=== PATIENT | female | born 1950 | race Caucasian/White ===

== ENCOUNTER 2017-06-16 23:51 | Emergency (ER) | payer MEDICARE, MEDICAID ==
[~2017-06-16] VITALS: Ht 157.5 cm; Wt 106.8 kg
[~2017-06-16 23:51] MED LIST: ALBU2.5V13 NEB; AMIT50TA3 PO; BACL10TA PO; BECL8.7A7 INH; BUPR-94 PO; DIVA500T9 PO; FERR325T32 PO; FLEC100T2 PO; IPRA3AMP IH; LEVO50TA8 PO; MONT10TA24 PO; MORP15TA60 PO; OSC500T PO; POTA8TAB8 PO; PRED20TA PO; RISP1TAB3 PO; ROPI2TAB4 PO; SIMV20TA PO; SUCR1TAB34 PO; VERA120T2 PO
[2017-06-17 00:47] LABS: BASOPHILS % (AUTO) 0.8 % (0-1); EOSINOPHILS # (AUTO) 0.2 X10'3 (0-0.9); EOSINOPHILS % (AUTO) 4.3 % (0-6); HEMATOCRIT 38.5 % (35.0-45.0); HEMOGLOBIN 12.8 g/dl (12.0-16.0); LYMPHOCYTES # (AUTO) 1.1 X10'3 (1.1-4.8); LYMPHOCYTES % (AUTO) 19.3 % (21-51); MEAN CORPUSCULAR HEMOGLOBIN 29.8 PG (27.0-31.0); MEAN CORPUSCULAR HGB CONC 33.1 % (33.0-36.5); MONOCYTES # (AUTO) 0.8 X10'3 (0-0.9); NEUTROPHILS # (AUTO) 3.6 X10'3 (1.8-7.7); NEUTROPHILS % (AUTO) 61.6 % (42-75); PLATELET COUNT 186 X10'3 (140-440); RED BLOOD COUNT 4.28 X10'6 (4.20-5.60); RED CELL DISTRIBUTION WIDTH 16.5 % (11.5-14.5); WHITE BLOOD COUNT 5.7 X10'3 (4.5-11.0)
[2017-06-17 00:56] LABS: PARTIAL THROMBOPLASTIN TIME 26 SECONDS (22-32); PROTHROMBIN TIME 10.6 SECONDS (9.0-12.0)
[2017-06-17 00:58] LABS: ALANINE AMINOTRANSFERASE 21 U/L (12-78); ALBUMIN 2.7 G/DL (3.4-5.0); ALBUMIN/GLOBULIN RATIO 0.7 (1.1-1.5); ALKALINE PHOSPHATASE 130 IU/L (46-116); ANION GAP 1 (8-16); ASPARTATE AMINO TRANSFERASE 36 U/L (10-37); BILIRUBIN,TOTAL 0.3 MG/DL (0.1-1.0); BLOOD UREA NITROGEN 13 MG/DL (7-18); CALCIUM 9.2 MG/DL (8.5-10.1); CHLORIDE 99 MMOL/L (99-107); GLUCOSE 150 MG/DL (70-104); MAGNESIUM 1.9 MG/DL (1.5-2.4); POTASSIUM 3.9 MMOL/L (3.5-5.1); SODIUM 144 MMOL/L (135-145); TOTAL PROTEIN 6.5 G/DL (6.4-8.2); eGFR 56 ML/MIN
[2017-06-17 01:01] LABS: TOTAL CARBON DIOXIDE 44.3 MMOL/L (24-32)
[2017-06-17 01:22] VITALS: BP 106/54
[2017-06-17] MEDS ORDERED: MAGN296S50 PO (01:29)
[2017-06-17] MEDS ORDERED: POLY17PO10 PO (01:29)
== END 2017-06-17 02:18 | disposition home or self-care (01) ==
LOC: ER 23:52
DX: K59.00 Constipation, unspecified (principal); I48.91 Unspecified atrial fibrillation; I50.9 Heart failure, unspecified; J44.9 Chronic obstructive pulmonary disease, unspecified; E11.9 Type 2 diabetes mellitus without complications; G89.29 Other chronic pain; G20 Parkinson's disease; F20.9 Schizophrenia, unspecified; F32.9 Major depressive disorder, single episode, unspecified; F41.9 Anxiety disorder, unspecified; Z86.73 Personal history of transient ischemic attack (TIA), and cerebral infarction without residual deficits; Z87.442 Personal history of urinary calculi; Z90.49 Acquired absence of other specified parts of digestive tract; Z88.5 Allergy status to narcotic agent; Z88.1 Allergy status to other antibiotic agents
CPT/HCPCS: 36415; 70450; 74176; 80053; 83735; 85025; 85610; 85730; 99285

== ENCOUNTER 2017-06-23 12:08 | Inpatient (IN) | payer MEDICARE, MEDICAID ==
[~2017-06-23] VITALS: Ht 157.5 cm; Wt 106.0 kg
[~2017-06-23 12:08] MED LIST changes: +MAGN296S50 PO; +POLY17PO10 PO; -PRED20TA PO
[2017-06-23] MEDS ORDERED: levoFLOXACIN-Levaquin 500mg/D5 100 ML IV ONE (12:20)
[2017-06-23] MEDS ORDERED: methylPREDNISolone sod succ 125mg/2ml vial IV ONE (12:20)
[2017-06-23] MEDS ORDERED: furosemide 40mg/4ml inj IV ONE (12:20)
[2017-06-23] MEDS ORDERED: ipratropium/albuterol 3ml nebule NEB ONE (12:20)
[2017-06-23 12:54] LABS: BASOPHILS % (AUTO) 0.4 % (0-1); EOSINOPHILS # (AUTO) 0.2 X10'3 (0-0.9); EOSINOPHILS % (AUTO) 4.2 % (0-6); HEMATOCRIT 37.2 % (35.0-45.0); HEMOGLOBIN 12.1 g/dl (12.0-16.0); LYMPHOCYTES # (AUTO) 1.2 X10'3 (1.1-4.8); LYMPHOCYTES % (AUTO) 29.2 % (21-51); MEAN CORPUSCULAR HEMOGLOBIN 29.8 PG (27.0-31.0); MEAN CORPUSCULAR HGB CONC 32.7 % (33.0-36.5); MEAN CORPUSCULAR VOLUME 91.3 FL (78-98); MEAN PLATELET VOLUME 7.4 FL (7.4-10.4); MONOCYTES # (AUTO) 0.7 X10'3 (0-0.9); MONOCYTES % (AUTO) 17.3 % (2-12); NEUTROPHILS % (AUTO) 48.9 % (42-75); PLATELET COUNT 139 X10'3 (140-440); RED BLOOD COUNT 4.07 X10'6 (4.20-5.60); RED CELL DISTRIBUTION WIDTH 17.3 % (11.5-14.5); WHITE BLOOD COUNT 4.2 X10'3 (4.5-11.0)
[2017-06-23] MEDS ORDERED: furosemide 20 MG/2 ML vial IV STA (13:04)
[2017-06-23 13:19] LABS: ALANINE AMINOTRANSFERASE 23 U/L (12-78); ALBUMIN 2.5 G/DL (3.4-5.0); ALBUMIN/GLOBULIN RATIO 0.7 (1.1-1.5); ALKALINE PHOSPHATASE 237 IU/L (46-116); ANION GAP 2 (8-16); ASPARTATE AMINO TRANSFERASE 37 U/L (10-37); BILIRUBIN,TOTAL 0.3 MG/DL (0.1-1.0); BLOOD UREA NITROGEN 18 MG/DL (7-18); CALCIUM 8.9 MG/DL (8.5-10.1); CHLORIDE 103 MMOL/L (99-107); GLUCOSE 97 MG/DL (70-104); POTASSIUM 4.1 MMOL/L (3.5-5.1); SODIUM 144 MMOL/L (135-145); TOTAL CARBON DIOXIDE 38.8 MMOL/L (24-32); TOTAL PROTEIN 6.2 G/DL (6.4-8.2); eGFR 63 ML/MIN
[2017-06-23 13:40] LABS: ABG BASE EXCESS 11.5 mmol/L (-2.0-3.0); ABG HCO3 39.3 mmol/L (22.0-26.0); ABG OXYGEN SATURATION 83.5 % (95-98); ABG PCO2 (T) 66.6 mmHg (32.0-45.0); ABG PH (T) 7.387 (7.350-7.450); ABG PO2 (T) 48.2 mmHg (83-108); ALLEN'S TEST Positive; FCOHb 5.9 % (0.5-1.5); FMetHb 0.1 % (0.3-1.12); FO2Hb 78.5 % (94-100); PATIENT TEMPERATURE 36.7
[2017-06-23] MEDS ORDERED: ondansetron/PF 4mg/2ml inj IV PRN (14:25)
[2017-06-23] MEDS ORDERED: acetaminophen 325mg tablet PO PRN ×2 (14:25)
[2017-06-23] MEDS ORDERED: HYDROcodone/acetaminophen 5mg/325mg tablet PO PRN (14:25)
[2017-06-23] MEDS ORDERED: HYDROcodone/acetaminophen 10/325mg tab PO PRN (14:25)
[2017-06-23] MEDS ORDERED: mag hydrox/Alum hydrox/simeth 30ml oral suspension PO PRN (14:25)
[2017-06-23] MEDS ORDERED: morphine 2 MG/ML inj. syringe IV PRN (14:25)
[2017-06-23] MEDS ORDERED: magnesium hydroxide 30ml (MOM) UD suspension PO PRN (14:25)
[2017-06-23 16:02] LABS: HEMOGLOBIN A1C 5.6 % (4.5-6.2)
[2017-06-23] MEDS ORDERED: baclofen 10mg tablet PO PRN (16:45)
[2017-06-23] MEDS ORDERED: magnesium citrate 296ml oral solution PO SCH (16:45)
[2017-06-23] MEDS ORDERED: ipratropium/albuterol 3ml nebule IH PRN (16:45)
[2017-06-23] MEDS ORDERED: furosemide 10 MG/1 ML 10ml inj IV ONE (18:50)
[2017-06-23 19:15] VITALS: BP 139/56
[2017-06-23] MEDS ORDERED: amitryptiline 50mg tablet PO SCH (21:00)
[2017-06-23] MEDS ORDERED: temazepam 15mg capsule PO PRN (21:00)
[2017-06-23] MEDS: risperiDONE 2mg tablet PO SCH (21:51)
[2017-06-23] MEDS: ROPINIRole 1mg tablet PO SCH (21:52)
[2017-06-23] MEDS: flecainide 50mg tablet PO SCH (21:52)
[2017-06-23] MEDS: morphine ER 15mg tablet PO SCH (21:53)
[2017-06-23] MEDS: sucralfate 1 gm tablet PO SCH (21:53)
[2017-06-23] MEDS: montelukast 10mg tablet PO SCH (21:53)
[2017-06-23] MEDS: atorvastatin 10mg tablet PO SCH (21:54)
[2017-06-23] MEDS: amitryptiline 50mg tablet PO SCH (21:54)
[2017-06-23] MEDS: divalproex sod 250mg ER (24-hour) tablet PO SCH (21:55)
[2017-06-23] MEDS: calcium carbonate 500mg tablet PO SCH (22:02)
[2017-06-24] VITALS: BP 139/70
[2017-06-24 02:08] LABS: BASOPHILS % (AUTO) 0.2 % (0-1); EOSINOPHILS % (AUTO) 0 % (0-6); HEMATOCRIT 39.3 % (35.0-45.0); HEMOGLOBIN 12.7 g/dl (12.0-16.0); LYMPHOCYTES # (AUTO) 0.7 X10'3 (1.1-4.8); LYMPHOCYTES % (AUTO) 19.7 % (21-51); MEAN CORPUSCULAR HEMOGLOBIN 29.6 PG (27.0-31.0); MEAN CORPUSCULAR HGB CONC 32.4 % (33.0-36.5); MEAN CORPUSCULAR VOLUME 91.3 FL (78-98); MEAN PLATELET VOLUME 7.9 FL (7.4-10.4); MONOCYTES # (AUTO) 0.2 X10'3 (0-0.9); MONOCYTES % (AUTO) 6.3 % (2-12); NEUTROPHILS # (AUTO) 2.6 X10'3 (1.8-7.7); NEUTROPHILS % (AUTO) 73.8 % (42-75); PLATELET COUNT 151 X10'3 (140-440); RED CELL DISTRIBUTION WIDTH 16.9 % (11.5-14.5); WHITE BLOOD COUNT 3.5 X10'3 (4.5-11.0)
[2017-06-24 02:10] LABS: PARTIAL THROMBOPLASTIN TIME 25 SECONDS (22-32); PROTHROMBIN TIME 10.8 SECONDS (9.0-12.0)
[2017-06-24 02:18] LABS: ALBUMIN 2.4 G/DL (3.4-5.0); BLOOD UREA NITROGEN 20 MG/DL (7-18); BUN/CREATININE RATIO 14.3 (6.6-38.0); CALCIUM 8.9 MG/DL (8.5-10.1); GLUCOSE 138 MG/DL (70-104); MAGNESIUM 1.6 MG/DL (1.5-2.4); eGFR 38 ML/MIN
[2017-06-24 02:36] LABS: ANION GAP 3 (8-16); CHLORIDE 101 MMOL/L (99-107); POTASSIUM 4.8 MMOL/L (3.5-5.1); SODIUM 144 MMOL/L (135-145)
[2017-06-24 02:38] LABS: TOTAL CARBON DIOXIDE 40.3 MMOL/L (24-32)
[2017-06-24 08:00] VITALS: BP 106/53
[2017-06-24] MEDS ORDERED: levoFLOXACIN-Levaquin 750MG/D5 150 ML IV SCH (08:00)
[2017-06-24] MEDS: enoxaparin 40mg/0.4ml syringe SQ SCH (08:23)
[2017-06-24] MEDS: buPROPion SR 150mg tablet PO SCH (08:29)
[2017-06-24] MEDS: ROPINIRole 1mg tablet PO SCH ×3 (08:31→20:26)
[2017-06-24] MEDS: flecainide 50mg tablet PO SCH ×2 (08:31→20:26)
[2017-06-24] MEDS: verapamil SR 120mg (sust. release) tab PO SCH (08:32)
[2017-06-24] MEDS: potassium chloride 8mEq ER tablet PO SCH (08:32)
[2017-06-24] MEDS: levoTHYROXINE 25mcg tablet PO SCH (08:33)
[2017-06-24] MEDS: ferrous sulfate 325mg tablet PO SCH (08:33)
[2017-06-24] MEDS: morphine ER 15mg tablet PO SCH ×3 (08:34→20:25)
[2017-06-24] MEDS: calcium carbonate 500mg tablet PO SCH ×2 (08:34→20:24)
[2017-06-24] MEDS: sucralfate 1 gm tablet PO SCH ×3 (08:36→20:25)
[2017-06-24] MEDS: fluticasone furoate 100MCG/puff inhaler IH SCH (08:46)
[2017-06-24] MEDS: albuterol 2.5 MG/3 ML nebule NEB PRN ×2 (08:46→21:32)
[2017-06-24] MEDS: furosemide 10 MG/1 ML 10ml inj IV SCH ×2 (08:49→20:24)
[2017-06-24 11:00] VITALS: BP 120/52
[2017-06-24] MEDS: divalproex sod 250mg ER (24-hour) tablet PO SCH ×2 (13:12→20:24)
[2017-06-24] MEDS ORDERED: morphine 5 MG/ML injection IV PRN (16:56)
[2017-06-24 20:00] VITALS: BP 121/50
[2017-06-24] MEDS: atorvastatin 10mg tablet PO SCH (20:24)
[2017-06-24] MEDS: amitryptiline 50mg tablet PO SCH (20:25)
[2017-06-24] MEDS: montelukast 10mg tablet PO SCH (20:25)
[2017-06-24] MEDS: risperiDONE 2mg tablet PO SCH (20:26)
[2017-06-24] MEDS ORDERED: ipratropium/albuterol 3ml nebule NEB PRN (23:45)
[2017-06-24] MEDS ORDERED: methylPREDNISolone sod succ 125mg/2ml vial IV ONE (23:45)
[2017-06-25] VITALS: BP 130/93
[2017-06-25 06:19] LABS: BASOPHILS % (AUTO) 0 % (0-1); EOSINOPHILS % (AUTO) 0 % (0-6); HEMATOCRIT 39.3 % (35.0-45.0); HEMOGLOBIN 13.1 g/dl (12.0-16.0); LYMPHOCYTES % (AUTO) 14.5 % (21-51); MEAN CORPUSCULAR HEMOGLOBIN 29.8 PG (27.0-31.0); MEAN CORPUSCULAR HGB CONC 33.4 % (33.0-36.5); MEAN CORPUSCULAR VOLUME 89.4 FL (78-98); MEAN PLATELET VOLUME 7.8 FL (7.4-10.4); MONOCYTES # (AUTO) 0.3 X10'3 (0-0.9); MONOCYTES % (AUTO) 4.3 % (2-12); NEUTROPHILS # (AUTO) 5.4 X10'3 (1.8-7.7); NEUTROPHILS % (AUTO) 81.2 % (42-75); PLATELET COUNT 178 X10'3 (140-440); RED BLOOD COUNT 4.39 X10'6 (4.20-5.60); RED CELL DISTRIBUTION WIDTH 17.5 % (11.5-14.5); WHITE BLOOD COUNT 6.7 X10'3 (4.5-11.0)
[2017-06-25 06:21] LABS: PARTIAL THROMBOPLASTIN TIME 25 SECONDS (22-32); PROTHROMBIN TIME 10.5 SECONDS (9.0-12.0)
[2017-06-25 06:38] LABS: ALBUMIN 2.9 G/DL (3.4-5.0); ANION GAP 5 (8-16); BLOOD UREA NITROGEN 33 MG/DL (7-18); BUN/CREATININE RATIO 27.5 (6.6-38.0); CALCIUM 9.5 MG/DL (8.5-10.1); CHLORIDE 95 MMOL/L (99-107); GLUCOSE 172 MG/DL (70-104); POTASSIUM 4.9 MMOL/L (3.5-5.1); SODIUM 140 MMOL/L (135-145); TOTAL CARBON DIOXIDE 39.8 MMOL/L (24-32); eGFR 45 ML/MIN
[2017-06-25 07:12] VITALS: BP 125/52
[2017-06-25] MEDS ORDERED: methylPREDNISolone sod succ 125mg/2ml vial IV ONE (08:00)
[2017-06-25] MEDS: divalproex sod 250mg ER (24-hour) tablet PO SCH (08:00)
[2017-06-25] MEDS ORDERED: levoFLOXACIN-Levaquin 750MG/D5 150 ML IV SCH ×2 (08:00)
[2017-06-25] MEDS: fluticasone furoate 100MCG/puff inhaler IH SCH (08:06)
[2017-06-25] MEDS: potassium chloride 8mEq ER tablet PO SCH (08:18)
[2017-06-25] MEDS: morphine ER 15mg tablet PO SCH ×2 (08:18→13:09)
[2017-06-25] MEDS: calcium carbonate 500mg tablet PO SCH (08:18)
[2017-06-25] MEDS: buPROPion SR 150mg tablet PO SCH (08:18)
[2017-06-25] MEDS: ferrous sulfate 325mg tablet PO SCH (08:18)
[2017-06-25] MEDS: sucralfate 1 gm tablet PO SCH ×2 (08:18→13:09)
[2017-06-25] MEDS: verapamil SR 120mg (sust. release) tab PO SCH (08:18)
[2017-06-25] MEDS: ROPINIRole 1mg tablet PO SCH ×2 (08:18→13:08)
[2017-06-25] MEDS: flecainide 50mg tablet PO SCH (08:19)
[2017-06-25] MEDS: furosemide 10 MG/1 ML 10ml inj IV SCH (08:19)
[2017-06-25] MEDS: levoTHYROXINE 25mcg tablet PO SCH (08:20)
[2017-06-25] MEDS: enoxaparin 40mg/0.4ml syringe SQ SCH (08:21)
[2017-06-25 11:00] VITALS: BP 97/48
[2017-06-25] MEDS ORDERED: PRED10TA23 PO (15:50)
[2017-06-25] MEDS ORDERED: LEVO500T2 PO (15:50)
[2017-06-25] MEDS ORDERED: FURO-149 PO (15:50)
[2017-06-25] MEDS ORDERED: POTA20LI CORPAK (15:54)
[2017-06-25] MEDS ORDERED: lactobacillus rhamnosus 10,000 MMU CELLS/CAPSULE PO SCH (20:00)
== END 2017-06-25 17:59 | disposition home health service (06) | DRG 190 ==
LOC: ER 12:09 → ED HOLD 13:44 → SUR 3N 19:09
PROVIDERS: ADMIT Family Medicine; ATTEND Family Medicine
DX: J44.0 Chronic obstructive pulmonary disease with (acute) lower respiratory infection (principal); J96.21 Acute and chronic respiratory failure with hypoxia; I50.33 Acute on chronic diastolic (congestive) heart failure; J18.9 Pneumonia, unspecified organism; I13.0 Hypertensive heart and chronic kidney disease with heart failure and stage 1 through stage 4 chronic kidney disease, or unspecified chronic kidney disease; E11.51 Type 2 diabetes mellitus with diabetic peripheral angiopathy without gangrene; G20 Parkinson's disease; J96.22 Acute and chronic respiratory failure with hypercapnia; Z68.41 Body mass index [BMI] 40.0-44.9, adult; J44.1 Chronic obstructive pulmonary disease with (acute) exacerbation; I48.91 Unspecified atrial fibrillation; F32.9 Major depressive disorder, single episode, unspecified; F41.9 Anxiety disorder, unspecified; G89.29 Other chronic pain; M54.9 Dorsalgia, unspecified; E66.9 Obesity, unspecified; F20.9 Schizophrenia, unspecified; N18.9 Chronic kidney disease, unspecified; F17.210 Nicotine dependence, cigarettes, uncomplicated; Z99.81 Dependence on supplemental oxygen; Z90.49 Acquired absence of other specified parts of digestive tract; Z88.8 Allergy status to other drugs, medicaments and biological substances; Z88.1 Allergy status to other antibiotic agents; Z88.6 Allergy status to analgesic agent; Z79.899 Other long term (current) drug therapy; Z79.01 Long term (current) use of anticoagulants; Z86.73 Personal history of transient ischemic attack (TIA), and cerebral infarction without residual deficits; Z87.442 Personal history of urinary calculi; Z80.9 Family history of malignant neoplasm, unspecified; Z56.0 Unemployment, unspecified
CPT/HCPCS: 36415; 36600; 71045; 80048; 80053; 82803; 83036; 83605; 83735; 83880; 84484; 85018; 85025; 85610; 85730; 87040; 87070; 87502; 87503; 93005; 93306; 94640; 94760; 96365; 96375; 97110; 97116; 97161; 99285; A6258; J1650; J1940; J1956; J2930

== ENCOUNTER 2017-06-26 22:44 | Inpatient (IN) | payer MEDICARE, MEDICAID ==
[~2017-06-26] VITALS: Ht 157.5 cm; Wt 106.0 kg
[~2017-06-26 22:44] MED LIST changes: +FURO-149 PO; +LEVO500T2 PO; +POTA20LI CORPAK; +PRED10TA23 PO
[2017-06-27 00:01] LABS: BASOPHILS % (AUTO) 0.5 % (0-1); EOSINOPHILS # (AUTO) 0.1 X10'3 (0-0.9); EOSINOPHILS % (AUTO) 1.1 % (0-6); HEMOGLOBIN 11.9 g/dl (12.0-16.0); LYMPHOCYTES # (AUTO) 1.1 X10'3 (1.1-4.8); MEAN CORPUSCULAR HEMOGLOBIN 29.3 PG (27.0-31.0); MEAN CORPUSCULAR HGB CONC 32.1 % (33.0-36.5); MEAN CORPUSCULAR VOLUME 91.3 FL (78-98); MEAN PLATELET VOLUME 7.5 FL (7.4-10.4); MONOCYTES # (AUTO) 1.3 X10'3 (0-0.9); MONOCYTES % (AUTO) 19.2 % (2-12); NEUTROPHILS # (AUTO) 4.1 X10'3 (1.8-7.7); NEUTROPHILS % (AUTO) 62.2 % (42-75); PLATELET COUNT 164 X10'3 (140-440); RED BLOOD COUNT 4.05 X10'6 (4.20-5.60); RED CELL DISTRIBUTION WIDTH 17.5 % (11.5-14.5); WHITE BLOOD COUNT 6.6 X10'3 (4.5-11.0)
[2017-06-27 00:02] LABS: CLARITY,URINE Clear (Clear); COLOR,URINE Yellow (Yellow); GLUCOSE, URINE Negative (Neg); KETONES,URINE Negative (Neg); LEUKOCYTE ESTERASE ,URINE Negative (Neg); NITRITES, URINE Negative (Neg); OCCULT BLOOD,URINE Negative (Neg); PROTEIN,URINE Negative (Neg)
[2017-06-27 00:03] LABS: UA COLLECTION TYPE FOLEY CATH
[2017-06-27 00:14] LABS: ALANINE AMINOTRANSFERASE 11 U/L (12-78); ALBUMIN 2.7 G/DL (3.4-5.0); ALBUMIN/GLOBULIN RATIO 0.8 (1.1-1.5); ALKALINE PHOSPHATASE 226 IU/L (46-116); ANION GAP 0 (8-16); ASPARTATE AMINO TRANSFERASE 29 U/L (10-37); BILIRUBIN,TOTAL 0.3 MG/DL (0.1-1.0); BLOOD UREA NITROGEN 42 MG/DL (7-18); CALCIUM 9.4 MG/DL (8.5-10.1); CHLORIDE 98 MMOL/L (99-107); GLUCOSE 105 MG/DL (70-104); POTASSIUM 4.6 MMOL/L (3.5-5.1); SODIUM 140 MMOL/L (135-145); TOTAL PROTEIN 6.3 G/DL (6.4-8.2); eGFR 56 ML/MIN
[2017-06-27 00:16] LABS: TOTAL CARBON DIOXIDE 41.6 MMOL/L (24-32)
[2017-06-27] MEDS ORDERED: dexamethasone 4mg tablet PO ONE (00:25)
[2017-06-27] MEDS ORDERED: ipratropium/albuterol 3ml nebule NEB ONE (00:25)
[2017-06-27] MEDS ORDERED: normal saline 1000ml 1,000 ML IV ONE (00:35)
[2017-06-27 00:46] LABS: ABG BASE EXCESS 11.2 mmol/L (-2.0-3.0); ABG HCO3 40.7 mmol/L (22.0-26.0); ABG OXYGEN SATURATION 87.8 % (95-98); ABG PCO2 (T) 81.1 mmHg (32.0-45.0); ABG PH (T) 7.317 (7.350-7.450); ABG PO2 (T) 57.5 mmHg (83-108); ALLEN'S TEST Positive; FLOW 4 L/min; FMetHb 0.1 % (0.3-1.12); FO2Hb 79.8 % (94-100); PATIENT TEMPERATURE 36.7; RESPIRATORY RATE (OBSERVED) 18 b/min; TOTAL HEMOGLOBIN 12.8 G/dl (12.0-16.0)
[2017-06-27] MEDS ORDERED: OMEP40CA37 PO (00:48)
[2017-06-27] MEDS ORDERED: CARB1TAB23 PO (00:52)
[2017-06-27] MEDS ORDERED: ondansetron/PF 4mg/2ml inj IV PRN (01:30)
[2017-06-27] MEDS ORDERED: acetaminophen 325mg tablet PO PRN (01:30)
[2017-06-27] MEDS ORDERED: magnesium hydroxide 30ml (MOM) UD suspension PO PRN (01:30)
[2017-06-27] MEDS ORDERED: potassium Cl 40MEQ/NS 500ml 500 ML IV PRN ×2 (01:30)
[2017-06-27] MEDS ORDERED: mag hydrox/Alum hydrox/simeth 30ml oral suspension PO PRN (01:30)
[2017-06-27] MEDS ORDERED: magnesium 2GM in 50ml NS 50 ML IV PRN (01:30)
[2017-06-27] MEDS ORDERED: magnesium 4gm in 100ml NS 100 ML IV PRN (01:30)
[2017-06-27] MEDS ORDERED: potassium Cl 20 mEq SR tablet PO PRN ×2 (01:30)
[2017-06-27] MEDS ORDERED: magnesium Cl slow-release 64mg tablet PO PRN (01:30)
[2017-06-27] MEDS: normal saline 1000ml 1,000 ML IV SCH ×2 (02:10→21:17)
[2017-06-27 02:55] LABS: ABG BASE EXCESS 10.1 mmol/L (-2.0-3.0); ABG HCO3 38.2 mmol/L (22.0-26.0); ABG OXYGEN SATURATION 92.8 % (95-98); ABG PCO2 (T) 69.1 mmHg (32.0-45.0); ABG PO2 (T) 65.7 mmHg (83-108); ALLEN'S TEST Positive; FCOHb 6.6 % (0.5-1.5); FMetHb 0.2 % (0.3-1.12); FO2Hb 86.5 % (94-100); PATIENT TEMPERATURE 36.8; RESPIRATORY RATE 18 b/min; RESPIRATORY RATE (OBSERVED) 23 b/min; TOTAL HEMOGLOBIN 12.8 G/dl (12.0-16.0)
[2017-06-27] MEDS: piperacillin/tazo 4.5gm/100ml 100 ML IV SCH ×3 (03:23→16:14)
[2017-06-27 03:40] VITALS: BP 141/55
[2017-06-27 06:00] VITALS: BP 121/49
[2017-06-27] MEDS ORDERED: potassium Cl oral solution 20 MEQ/15 ML CORPAK SCH (08:00)
[2017-06-27] MEDS: verapamil SR 120mg (sust. release) tab PO SCH (08:00)
[2017-06-27] MEDS: K and/or MAG REPLACEMENT MC SCH (08:00)
[2017-06-27] MEDS ORDERED: furosemide 20 MG/2 ML vial IV ONE (08:35)
[2017-06-27] MEDS: potassium chloride 8mEq ER tablet PO SCH (09:00)
[2017-06-27] MEDS: flecainide 50mg tablet PO SCH ×2 (09:01→21:03)
[2017-06-27] MEDS: heparin, porcine 5000 units/ml vial SQ SCH ×2 (09:02→21:04)
[2017-06-27] MEDS: morphine 10mg/0.5ml (conc. morphine) oral syringe PO PRN ×2 (09:02→18:33)
[2017-06-27] MEDS: levoTHYROXINE 25mcg tablet PO SCH (09:06)
[2017-06-27] MEDS: pantoprazole 40mg Tablet.DR PO SCH (09:06)
[2017-06-27] MEDS: carbidoba-levodopa 25-100mg tablet PO SCH ×2 (10:34→21:03)
[2017-06-27] MEDS: divalproex sodium 500mg tablet.DR PO SCH ×2 (10:35→21:04)
[2017-06-27 11:00] VITALS: BP 114/47
[2017-06-27 15:00] VITALS: BP 105/55
[2017-06-27] MEDS: lactobacillus rhamnosus 10,000 MMU CELLS/CAPSULE PO SCH (17:30)
[2017-06-27 19:00] VITALS: BP 118/44
[2017-06-27] MEDS: amitryptiline 50mg tablet PO SCH (21:03)
[2017-06-27] MEDS: risperiDONE 2mg tablet PO SCH (21:03)
[2017-06-27 23:00] VITALS: BP 114/61
[2017-06-28] MEDS: piperacillin/tazo 4.5gm/100ml 100 ML IV SCH (00:26)
[2017-06-28 03:00] VITALS: BP 101/42
[2017-06-28] MEDS: morphine 10mg/0.5ml (conc. morphine) oral syringe PO PRN ×3 (04:41→15:33)
[2017-06-28 06:00] VITALS: BP 101/44
[2017-06-28 06:05] LABS: BASOPHILS % (AUTO) 0.2 % (0-1); EOSINOPHILS % (AUTO) 0 % (0-6); HEMATOCRIT 34.4 % (35.0-45.0); HEMOGLOBIN 11.2 g/dl (12.0-16.0); LYMPHOCYTES # (AUTO) 1.2 X10'3 (1.1-4.8); LYMPHOCYTES % (AUTO) 25.5 % (21-51); MEAN CORPUSCULAR HEMOGLOBIN 29.2 PG (27.0-31.0); MEAN CORPUSCULAR HGB CONC 32.7 % (33.0-36.5); MEAN CORPUSCULAR VOLUME 89.6 FL (78-98); MEAN PLATELET VOLUME 7.8 FL (7.4-10.4); MONOCYTES # (AUTO) 0.9 X10'3 (0-0.9); MONOCYTES % (AUTO) 18.5 % (2-12); NEUTROPHILS # (AUTO) 2.7 X10'3 (1.8-7.7); NEUTROPHILS % (AUTO) 55.8 % (42-75); PLATELET COUNT 142 X10'3 (140-440); RED BLOOD COUNT 3.84 X10'6 (4.20-5.60); RED CELL DISTRIBUTION WIDTH 17.5 % (11.5-14.5); WHITE BLOOD COUNT 4.9 X10'3 (4.5-11.0)
[2017-06-28 06:32] LABS: ALANINE AMINOTRANSFERASE 13 U/L (12-78); ALBUMIN 2.4 G/DL (3.4-5.0); ALBUMIN/GLOBULIN RATIO 0.8 (1.1-1.5); ALKALINE PHOSPHATASE 202 IU/L (46-116); ANION GAP 2 (8-16); ASPARTATE AMINO TRANSFERASE 38 U/L (10-37); BILIRUBIN,TOTAL 0.3 MG/DL (0.1-1.0); BLOOD UREA NITROGEN 33 MG/DL (7-18); CALCIUM 8.8 MG/DL (8.5-10.1); CHLORIDE 102 MMOL/L (99-107); GLUCOSE 80 MG/DL (70-104); MAGNESIUM 2.1 MG/DL (1.5-2.4); POTASSIUM 4.1 MMOL/L (3.5-5.1); SODIUM 147 MMOL/L (135-145); TOTAL PROTEIN 5.6 G/DL (6.4-8.2); eGFR 56 ML/MIN
[2017-06-28 06:37] LABS: TOTAL CARBON DIOXIDE 42.7 MMOL/L (24-32)
[2017-06-28] MEDS: K and/or MAG REPLACEMENT MC SCH (08:00)
[2017-06-28] MEDS: levoTHYROXINE 25mcg tablet PO SCH (09:35)
[2017-06-28] MEDS: carbidoba-levodopa 25-100mg tablet PO SCH ×2 (09:35→19:22)
[2017-06-28] MEDS: verapamil SR 120mg (sust. release) tab PO SCH (09:35)
[2017-06-28] MEDS: lactobacillus rhamnosus 10,000 MMU CELLS/CAPSULE PO SCH ×2 (09:36→17:17)
[2017-06-28] MEDS: flecainide 50mg tablet PO SCH ×2 (09:37→19:23)
[2017-06-28] MEDS: potassium chloride 8mEq ER tablet PO SCH (09:37)
[2017-06-28] MEDS: pantoprazole 40mg Tablet.DR PO SCH (09:38)
[2017-06-28] MEDS: heparin, porcine 5000 units/ml vial SQ SCH ×2 (09:39→19:22)
[2017-06-28] MEDS: divalproex sodium 500mg tablet.DR PO SCH ×2 (09:47→19:22)
[2017-06-28] MEDS: levoFLOXACIN-Levaquin 750MG/D5 150 ML IV SCH (09:49)
[2017-06-28] MEDS: methylPREDNISolone sod succ 125mg/2ml vial IV SCH ×3 (09:49→19:20)
[2017-06-28] MEDS: sodium chloride 0.45% 1,000 ML IV SCH ×2 (10:06→22:58)
[2017-06-28] MEDS: ipratropium/albuterol 3ml nebule NEB SCH ×4 (10:58→22:47)
[2017-06-28 11:00] VITALS: BP 113/51
[2017-06-28] MEDS: aspirin 325mg tablet, delayed-release (Ecotrin) PO SCH (13:24)
[2017-06-28 15:00] VITALS: BP 116/51
[2017-06-28 19:00] VITALS: BP 119/59
[2017-06-28] MEDS: amitryptiline 50mg tablet PO SCH (21:00)
[2017-06-28] MEDS: risperiDONE 2mg tablet PO SCH (21:00)
[2017-06-28 23:00] VITALS: BP 142/61
[2017-06-29] MEDS: ipratropium/albuterol 3ml nebule NEB SCH ×6 (02:57→23:12)
[2017-06-29 03:00] VITALS: BP 122/53
[2017-06-29] MEDS: methylPREDNISolone sod succ 125mg/2ml vial IV SCH ×3 (03:00→16:53)
[2017-06-29] MEDS: morphine 10mg/0.5ml (conc. morphine) oral syringe PO PRN (03:51)
[2017-06-29 06:00] VITALS: BP 128/58
[2017-06-29 07:13] LABS: ALANINE AMINOTRANSFERASE 35 U/L (12-78); ALBUMIN 2.5 G/DL (3.4-5.0); ALBUMIN/GLOBULIN RATIO 0.7 (1.1-1.5); ALKALINE PHOSPHATASE 183 IU/L (46-116); ANION GAP 5 (8-16); ASPARTATE AMINO TRANSFERASE 26 U/L (10-37); BILIRUBIN,TOTAL 0.2 MG/DL (0.1-1.0); BLOOD UREA NITROGEN 34 MG/DL (7-18); BUN/CREATININE RATIO 30.9 (6.6-38.0); CALCIUM 8.6 MG/DL (8.5-10.1); CHLORIDE 98 MMOL/L (99-107); GLUCOSE 154 MG/DL (70-104); MAGNESIUM 2.2 MG/DL (1.5-2.4); POTASSIUM 4.8 MMOL/L (3.5-5.1); SODIUM 142 MMOL/L (135-145); TOTAL CARBON DIOXIDE 38.8 MMOL/L (24-32); TOTAL PROTEIN 5.9 G/DL (6.4-8.2); eGFR 50 ML/MIN
[2017-06-29] MEDS: K and/or MAG REPLACEMENT MC SCH (08:00)
[2017-06-29] MEDS: levoFLOXACIN-Levaquin 750MG/D5 150 ML IV SCH (08:31)
[2017-06-29] MEDS: verapamil SR 120mg (sust. release) tab PO SCH (08:34)
[2017-06-29] MEDS: heparin, porcine 5000 units/ml vial SQ SCH ×2 (08:34→19:35)
[2017-06-29] MEDS: divalproex sodium 500mg tablet.DR PO SCH ×2 (08:35→19:35)
[2017-06-29] MEDS: potassium chloride 8mEq ER tablet PO SCH (08:35)
[2017-06-29] MEDS: aspirin 325mg tablet, delayed-release (Ecotrin) PO SCH (08:35)
[2017-06-29] MEDS: lactobacillus rhamnosus 10,000 MMU CELLS/CAPSULE PO SCH ×2 (08:36→16:52)
[2017-06-29] MEDS: flecainide 50mg tablet PO SCH ×2 (08:36→19:35)
[2017-06-29] MEDS: pantoprazole 40mg Tablet.DR PO SCH (08:36)
[2017-06-29] MEDS: carbidoba-levodopa 25-100mg tablet PO SCH ×2 (08:36→19:35)
[2017-06-29] MEDS: levoTHYROXINE 25mcg tablet PO SCH (09:01)
[2017-06-29 11:00] VITALS: BP 128/52
[2017-06-29] MEDS ORDERED: dextrose 50%-water 50ml dispensing syringe IV PRN ×2 (14:50)
[2017-06-29] MEDS ORDERED: dextrose ORAL solution 15 GM/59 ML bottle PO PRN ×2 (14:50)
[2017-06-29] MEDS ORDERED: glucagon, human recombinant 1mg kit SUBCUT PRN (14:50)
[2017-06-29] MEDS ORDERED: MESSAGE TO PHARMACY PO ONE (14:50)
[2017-06-29 15:00] VITALS: BP 121/52
[2017-06-29 19:00] VITALS: BP 129/60
[2017-06-29] MEDS: insulin Lispro (HumaLOG) vial - multi-dose SQ SCH (19:30)
[2017-06-29] MEDS ORDERED: insulin glargine (Lantus) pen - multi-dose SQ SCH (21:00)
[2017-06-29] MEDS: risperiDONE 2mg tablet PO SCH (21:14)
[2017-06-29] MEDS: amitryptiline 50mg tablet PO SCH (21:14)
[2017-06-29 23:00] VITALS: BP 118/62
[2017-06-30] MEDS: methylPREDNISolone sod succ 125mg/2ml vial IV SCH ×2 (00:45→07:35)
[2017-06-30 03:00] VITALS: BP 133/49
[2017-06-30] MEDS: ipratropium/albuterol 3ml nebule NEB SCH ×4 (05:05→15:12)
[2017-06-30 07:00] VITALS: BP 129/56
[2017-06-30] MEDS: levoTHYROXINE 25mcg tablet PO SCH (07:19)
[2017-06-30] MEDS: potassium chloride 8mEq ER tablet PO SCH (07:27)
[2017-06-30] MEDS: aspirin 325mg tablet, delayed-release (Ecotrin) PO SCH (07:27)
[2017-06-30] MEDS: flecainide 50mg tablet PO SCH (07:27)
[2017-06-30] MEDS: verapamil SR 120mg (sust. release) tab PO SCH (07:27)
[2017-06-30] MEDS: carbidoba-levodopa 25-100mg tablet PO SCH (07:27)
[2017-06-30] MEDS: pantoprazole 40mg Tablet.DR PO SCH (07:29)
[2017-06-30] MEDS: heparin, porcine 5000 units/ml vial SQ SCH (07:32)
[2017-06-30] MEDS: divalproex sodium 500mg tablet.DR PO SCH (07:39)
[2017-06-30 08:40] LABS: ALANINE AMINOTRANSFERASE 23 U/L (12-78); ALBUMIN 2.4 G/DL (3.4-5.0); ALBUMIN/GLOBULIN RATIO 0.8 (1.1-1.5); ALKALINE PHOSPHATASE 149 IU/L (46-116); ANION GAP 2 (8-16); ASPARTATE AMINO TRANSFERASE 15 U/L (10-37); BILIRUBIN,TOTAL 0.2 MG/DL (0.1-1.0); BLOOD UREA NITROGEN 37 MG/DL (7-18); CALCIUM 8.8 MG/DL (8.5-10.1); CHLORIDE 101 MMOL/L (99-107); GLUCOSE 155 MG/DL (70-104); MAGNESIUM 2.5 MG/DL (1.5-2.4); POTASSIUM 4.8 MMOL/L (3.5-5.1); SODIUM 142 MMOL/L (135-145); TOTAL PROTEIN 5.5 G/DL (6.4-8.2); eGFR 56 ML/MIN
[2017-06-30 11:00] VITALS: BP 116/50
[2017-06-30] MEDS ORDERED: levoFLOXACIN 750MG TABLET PO SCH (11:00)
[2017-06-30] MEDS ORDERED: LEVO500T2 PO (11:01)
[2017-06-30] MEDS ORDERED: PRED10TA23 PO (11:01)
[2017-06-30] MEDS ORDERED: ASPI-41 PO (11:01)
[2017-06-30] MEDS: lactobacillus rhamnosus 10,000 MMU CELLS/CAPSULE PO SCH (11:56)
[2017-06-30] MEDS: insulin Lispro (HumaLOG) vial - multi-dose SQ SCH (13:02)
[2017-06-30 15:00] VITALS: BP 134/49
[2017-07-01] MEDS ORDERED: levoFLOXACIN 750MG TABLET PO SCH (11:00)
== END 2017-06-30 17:56 | disposition home health service (06) | DRG 189 ==
LOC: ER 22:45 → ED HOLD 06-27 01:26 → PCU 3S 06-27 03:40
PROVIDERS: ADMIT Internal Medicine; ATTEND Family Medicine
PROC: 5A09457 Assistance with Respiratory Ventilation, 24-96 Consecutive Hours, Continuous Positive Airway Pressure (ICD-10-PCS; principal; 2017-06-27)
DX: J96.22 Acute and chronic respiratory failure with hypercapnia (principal); G93.40 Encephalopathy, unspecified; E11.22 Type 2 diabetes mellitus with diabetic chronic kidney disease; E66.01 Morbid (severe) obesity due to excess calories; F20.9 Schizophrenia, unspecified; L03.116 Cellulitis of left lower limb; I48.91 Unspecified atrial fibrillation; E86.0 Dehydration; I13.0 Hypertensive heart and chronic kidney disease with heart failure and stage 1 through stage 4 chronic kidney disease, or unspecified chronic kidney disease; G20 Parkinson's disease; I50.9 Heart failure, unspecified; J44.0 Chronic obstructive pulmonary disease with (acute) lower respiratory infection; J44.1 Chronic obstructive pulmonary disease with (acute) exacerbation; Z68.41 Body mass index [BMI] 40.0-44.9, adult; W07.XXXA Fall from chair, initial encounter; E03.9 Hypothyroidism, unspecified; E78.5 Hyperlipidemia, unspecified; F32.9 Major depressive disorder, single episode, unspecified; F41.9 Anxiety disorder, unspecified; G89.29 Other chronic pain; M54.9 Dorsalgia, unspecified; G40.909 Epilepsy, unspecified, not intractable, without status epilepticus; G47.10 Hypersomnia, unspecified; S51.811A Laceration without foreign body of right forearm, initial encounter; J20.9 Acute bronchitis, unspecified; K21.9 Gastro-esophageal reflux disease without esophagitis; N18.9 Chronic kidney disease, unspecified; Z99.81 Dependence on supplemental oxygen; Z99.3 Dependence on wheelchair; Z90.49 Acquired absence of other specified parts of digestive tract; Z88.8 Allergy status to other drugs, medicaments and biological substances; Z79.899 Other long term (current) drug therapy; Z79.01 Long term (current) use of anticoagulants; Z79.82 Long term (current) use of aspirin; Z86.73 Personal history of transient ischemic attack (TIA), and cerebral infarction without residual deficits; Z87.442 Personal history of urinary calculi; Z80.9 Family history of malignant neoplasm, unspecified; Z82.49 Family history of ischemic heart disease and other diseases of the circulatory system; Y93.89 Activity, other specified; Y92.89 Other specified places as the place of occurrence of the external cause; Y99.8 Other external cause status
CPT/HCPCS: 36415; 36600; 70450; 71045; 80053; 81003; 82803; 82948; 83036; 83605; 83735; 83880; 85018; 85025; 87040; 87070; 93005; 94640; 94660; 94760; 97162; 97530; 99291; J1644; J1815; J1940; J1956; J2543; J2930; J7030; J8540

== ENCOUNTER 2017-10-16 19:08 | Emergency (ER) | payer MEDICARE, MEDICAID ==
[~2017-10-16] VITALS: Ht 157.5 cm; Wt 106.0 kg
[~2017-10-16 19:08] MED LIST changes: +ASPI-41 PO; -BACL10TA PO; +CARB1TAB23 PO; -FERR325T32 PO; -FURO-149 PO; -LEVO500T2 PO; -MAGN296S50 PO; -MORP15TA60 PO; +OMEP40CA37 PO; -OSC500T PO; -POLY17PO10 PO; -POTA20LI CORPAK; -POTA8TAB8 PO; -PRED10TA23 PO; -SIMV20TA PO; -SUCR1TAB34 PO
[2017-10-16] MEDS ORDERED: ipratropium/albuterol 3ml nebule NEB ONE (19:25)
[2017-10-16 19:53] LABS: BASOPHILS % (AUTO) 0.4 % (0-1); EOSINOPHILS # (AUTO) 0.7 X10'3 (0-0.9); EOSINOPHILS % (AUTO) 9.7 % (0-6); HEMATOCRIT 36.6 % (35.0-45.0); HEMOGLOBIN 12.1 g/dl (12.0-16.0); LYMPHOCYTES # (AUTO) 1.5 X10'3 (1.1-4.8); LYMPHOCYTES % (AUTO) 20.7 % (21-51); MEAN CORPUSCULAR HEMOGLOBIN 28.9 PG (27.0-31.0); MEAN CORPUSCULAR HGB CONC 33.1 % (33.0-36.5); MEAN CORPUSCULAR VOLUME 87.2 FL (78-98); MEAN PLATELET VOLUME 8.9 FL (7.4-10.4); MONOCYTES # (AUTO) 1.1 X10'3 (0-0.9); MONOCYTES % (AUTO) 15.3 % (2-12); NEUTROPHILS # (AUTO) 3.9 X10'3 (1.8-7.7); NEUTROPHILS % (AUTO) 53.9 % (42-75); PLATELET COUNT 155 X10'3 (140-440); RED CELL DISTRIBUTION WIDTH 18.2 % (11.5-14.5); WHITE BLOOD COUNT 7.2 X10'3 (4.5-11.0)
[2017-10-16 20:09] LABS: ALKALINE PHOSPHATASE 634 IU/L (46-116)
[2017-10-16 20:12] LABS: D-DIMER 0.33 MG/L FEU (0-0.50)
[2017-10-16 20:16] LABS: ALANINE AMINOTRANSFERASE 55 U/L (12-78); ALBUMIN 2.3 G/DL (3.4-5.0); ALBUMIN/GLOBULIN RATIO 0.5 (1.1-1.5); ASPARTATE AMINO TRANSFERASE 92 U/L (10-37); BILIRUBIN,TOTAL 1.2 MG/DL (0.1-1.0); BLOOD UREA NITROGEN 19 MG/DL (7-18); BUN/CREATININE RATIO 17.8 (6.6-38.0); CREATININE 1.07 MG/DL (0.40-0.90); GLUCOSE 101 MG/DL (70-104); SODIUM 141 MMOL/L (135-145); TOTAL CARBON DIOXIDE 37.1 MMOL/L (24-32); TOTAL PROTEIN 7.2 G/DL (6.4-8.2); eGFR 51 ML/MIN
[2017-10-16 20:19] LABS: POTASSIUM 3.4 MMOL/L (3.5-5.1)
[2017-10-16 20:30] LABS: ANION GAP 7 (8-16); CHLORIDE 97 MMOL/L (99-107)
[2017-10-16] MEDS ORDERED: PRED5TAB PO (20:47)
[2017-10-16] MEDS ORDERED: ALBU8HFA PO (20:47)
[2017-10-16] MEDS ORDERED: DOXY100C43 PO (20:47)
[2017-10-16 21:03] VITALS: BP 137/55
== END 2017-10-16 21:04 | disposition home or self-care (01) ==
LOC: ER 19:08
DX: J18.1 Lobar pneumonia, unspecified organism (principal); J44.9 Chronic obstructive pulmonary disease, unspecified; I11.0 Hypertensive heart disease with heart failure; I50.9 Heart failure, unspecified; G20 Parkinson's disease; E11.9 Type 2 diabetes mellitus without complications; F17.200 Nicotine dependence, unspecified, uncomplicated; Z86.73 Personal history of transient ischemic attack (TIA), and cerebral infarction without residual deficits; Z88.1 Allergy status to other antibiotic agents; Z88.8 Allergy status to other drugs, medicaments and biological substances
CPT/HCPCS: 36415; 71045; 80053; 83880; 84484; 85025; 85379; 94640; 94760; 99285; 99406

== ENCOUNTER 2017-11-29 08:58 | Emergency (ER) | payer MEDICARE, MEDICAID ==
[~2017-11-29] VITALS: Ht 552.4 cm; Wt 104.0 kg
[~2017-11-29 08:58] MED LIST changes: +PRED5TAB PO
[2017-11-29 09:00] VITALS: BP 136/97
[2017-11-29] MEDS ORDERED: ipratropium/albuterol 3ml nebule NEB ONE (09:30)
[2017-11-29] MEDS ORDERED: diphenhydrAMINE 50 mg/ml inj IV ONE (09:30)
[2017-11-29 09:58] LABS: BASOPHILS # (AUTO) 0.1 X10'3 (0-0.2); BASOPHILS % (AUTO) 1.8 % (0-1); EOSINOPHILS # (AUTO) 0.2 X10'3 (0-0.9); EOSINOPHILS % (AUTO) 3.9 % (0-6); HEMATOCRIT 35.1 % (35.0-45.0); HEMOGLOBIN 11.4 g/dl (12.0-16.0); LYMPHOCYTES # (AUTO) 1.8 X10'3 (1.1-4.8); MEAN CORPUSCULAR HEMOGLOBIN 26.3 PG (27.0-31.0); MEAN CORPUSCULAR HGB CONC 32.6 % (33.0-36.5); MEAN CORPUSCULAR VOLUME 80.7 FL (78-98); MEAN PLATELET VOLUME 8.3 FL (7.4-10.4); MONOCYTES # (AUTO) 0.8 X10'3 (0-0.9); NEUTROPHILS % (AUTO) 41.3 % (42-75); PLATELET COUNT 124 X10'3 (140-440); RED BLOOD COUNT 4.36 X10'6 (4.20-5.60); WHITE BLOOD COUNT 4.9 X10'3 (4.5-11.0)
[2017-11-29 10:11] LABS: CLARITY,URINE CLEAR (Clear); GLUCOSE, URINE NEGATIVE (Neg); KETONES,URINE TRACE mg/dl (Neg); LEUKOCYTE ESTERASE ,URINE NEGATIVE (Neg); NITRITES, URINE NEGATIVE (Neg); OCCULT BLOOD,URINE TRACE-LYSED (Neg); PH,URINE 6.5 (4.8-8.0); PROTEIN,URINE TRACE mg/dl (Neg)
[2017-11-29 10:12] LABS: COLOR,URINE DARK YELLOW (Yellow); UA COLLECTION TYPE STRAIGHT CATH
[2017-11-29 10:12] LABS: ALANINE AMINOTRANSFERASE 30 U/L (12-78); ALBUMIN/GLOBULIN RATIO 0.5 (1.1-1.5); ALKALINE PHOSPHATASE 420 IU/L (46-116); ANION GAP 1 (8-16); ASPARTATE AMINO TRANSFERASE 44 U/L (10-37); BILIRUBIN,TOTAL 0.3 MG/DL (0.1-1.0); BLOOD UREA NITROGEN 14 MG/DL (7-18); BUN/CREATININE RATIO 13.7 (6.6-38.0); CALCIUM 9.1 MG/DL (8.5-10.1); CHLORIDE 102 MMOL/L (99-107); CREATININE 1.02 MG/DL (0.40-0.90); GLUCOSE 92 MG/DL (70-104); POTASSIUM 4.4 MMOL/L (3.5-5.1); SODIUM 139 MMOL/L (135-145); TOTAL CARBON DIOXIDE 35.9 MMOL/L (24-32); TOTAL PROTEIN 6.1 G/DL (6.4-8.2); eGFR 54 ML/MIN
[2017-11-29 10:17] LABS: BACTERIA,URINE FEW /HPF (Neg); COARSE GRANULAR CAST 0-3 /LPF (NEGATIVE); MUCUS STRANDS FEW /LPF (Neg); RBC,URINE 0-2 /HPF (0-2); RENAL CELLS, URINE FEW /HPF; SQUAMOUS EPITHELIAL CELL,UR FEW /LPF (FEW); WBC,URINE 0-4 /HPF (0-4)
[2017-11-29] MEDS ORDERED: DIVA125T3 PO (10:19)
[2017-11-29] MEDS ORDERED: MORP30TA PO (10:19)
[2017-11-29] MEDS ORDERED: APIX2.5T PO (10:19)
[2017-11-29] MEDS ORDERED: BACL10TA PO (10:19)
[2017-11-29] MEDS ORDERED: VENTOLIN (10:19)
[2017-11-29] MEDS ORDERED: ATOR40TA PO (10:19)
[2017-11-29] MEDS ORDERED: RISP2TAB3 PO (10:19)
[2017-11-29] MEDS ORDERED: FLUTICASONE (10:19)
[2017-11-29] MEDS ORDERED: AMIT-189 PO (10:19)
[2017-11-29 10:21] LABS: CREATINE KINASE 24 U/L (26-192); MAGNESIUM 1.5 MG/DL (1.5-2.4)
[2017-11-29] MEDS ORDERED: MECL12.584 PO (11:11)
== END 2017-11-29 12:04 | disposition home or self-care (01) ==
LOC: ER 08:59
DX: R42 Dizziness and giddiness (principal); R05 Cough; R51 Headache; I48.91 Unspecified atrial fibrillation; I11.0 Hypertensive heart disease with heart failure; I50.9 Heart failure, unspecified; J44.9 Chronic obstructive pulmonary disease, unspecified; E11.9 Type 2 diabetes mellitus without complications; G89.29 Other chronic pain; Z87.442 Personal history of urinary calculi; Z90.49 Acquired absence of other specified parts of digestive tract; Z90.710 Acquired absence of both cervix and uterus; Z98.890 Other specified postprocedural states; Z56.0 Unemployment, unspecified; Z88.8 Allergy status to other drugs, medicaments and biological substances; Z91.018 Allergy to other foods; Z79.899 Other long term (current) drug therapy; Z79.82 Long term (current) use of aspirin; Z86.73 Personal history of transient ischemic attack (TIA), and cerebral infarction without residual deficits
CPT/HCPCS: 36415; 71046; 80053; 81001; 82550; 83735; 83880; 85025; 93005; 94640; 94760; 96374; 99285; J1200

== ENCOUNTER 2017-12-01 13:52 | Emergency (ER) | payer MEDICARE, MEDICAID ==
[~2017-12-01] VITALS: Ht 552.4 cm; Wt 101.0 kg
[~2017-12-01 13:52] MED LIST changes: +AMIT-189 PO; -AMIT50TA3 PO; +APIX2.5T PO; +ATOR40TA PO; +BACL10TA PO; +DIVA125T3 PO; +FLUTICASONE; +MECL12.584 PO; +MORP30TA PO; -RISP1TAB3 PO; +RISP2TAB3 PO; +VENTOLIN
[2017-12-01] MEDS ORDERED: POLY17PO10 PO (14:08)
[2017-12-01 15:20] VITALS: BP 111/48
== END 2017-12-01 15:29 | disposition home or self-care (01) ==
LOC: ER 13:53
DX: K59.00 Constipation, unspecified (principal); R10.84 Generalized abdominal pain; I48.91 Unspecified atrial fibrillation; I11.0 Hypertensive heart disease with heart failure; I50.9 Heart failure, unspecified; J44.9 Chronic obstructive pulmonary disease, unspecified; E11.9 Type 2 diabetes mellitus without complications; G89.29 Other chronic pain; Z87.442 Personal history of urinary calculi; Z86.73 Personal history of transient ischemic attack (TIA), and cerebral infarction without residual deficits; Z90.49 Acquired absence of other specified parts of digestive tract; Z90.710 Acquired absence of both cervix and uterus; Z98.890 Other specified postprocedural states; Z56.0 Unemployment, unspecified; Z88.8 Allergy status to other drugs, medicaments and biological substances; Z88.1 Allergy status to other antibiotic agents; Z91.018 Allergy to other foods; Z79.82 Long term (current) use of aspirin; Z79.899 Other long term (current) drug therapy
CPT/HCPCS: 74018; 99283

== ENCOUNTER 2017-12-17 20:09 | Inpatient (IN) | payer MEDICARE, MEDICAID ==
[~2017-12-17] VITALS: Ht 157.5 cm; Wt 100.0 kg
[~2017-12-17 20:09] MED LIST changes: -DIVA125T3 PO; +DIVA125T31 PO; -IPRA3AMP IH; +IPRA3AMP31 IH; +POLY17PO10 PO
[2017-12-17] MEDS ORDERED: dexamethasone sod phosphate 10mg/ml inj IV STA (20:47)
[2017-12-17] MEDS ORDERED: ipratropium/albuterol 3ml nebule NEB ONE (20:50)
[2017-12-17 21:06] LABS: BASOPHILS % (AUTO) 0.1 % (0-1); EOSINOPHILS # (AUTO) 0.2 X10'3 (0-0.9); HEMATOCRIT 38.3 % (35.0-45.0); HEMOGLOBIN 12.4 g/dl (12.0-16.0); LYMPHOCYTES # (AUTO) 1.1 X10'3 (1.1-4.8); LYMPHOCYTES % (AUTO) 27.4 % (21-51); MEAN CORPUSCULAR HEMOGLOBIN 26.2 PG (27.0-31.0); MEAN CORPUSCULAR HGB CONC 32.5 % (33.0-36.5); MEAN CORPUSCULAR VOLUME 80.7 FL (78-98); MEAN PLATELET VOLUME 7.6 FL (7.4-10.4); MONOCYTES # (AUTO) 0.6 X10'3 (0-0.9); MONOCYTES % (AUTO) 14.8 % (2-12); NEUTROPHILS # (AUTO) 2.1 X10'3 (1.8-7.7); NEUTROPHILS % (AUTO) 52.7 % (42-75); PLATELET COUNT 126 X10'3 (140-440); RED BLOOD COUNT 4.74 X10'6 (4.20-5.60); RED CELL DISTRIBUTION WIDTH 18.6 % (11.5-14.5)
[2017-12-17 21:18] LABS: PARTIAL THROMBOPLASTIN TIME 24 SECONDS (22-32); PROTHROMBIN TIME 10.5 SECONDS (9.0-12.0)
[2017-12-17 21:22] LABS: ALANINE AMINOTRANSFERASE 18 U/L (12-78); ALBUMIN/GLOBULIN RATIO 0.5 (1.1-1.5); ALKALINE PHOSPHATASE 337 IU/L (46-116); ANION GAP 1 (8-16); ASPARTATE AMINO TRANSFERASE 30 U/L (10-37); BILIRUBIN,TOTAL 0.3 MG/DL (0.1-1.0); BLOOD UREA NITROGEN 12 MG/DL (7-18); BUN/CREATININE RATIO 13.5 (6.6-38.0); CHLORIDE 101 MMOL/L (99-107); CREATININE 0.89 MG/DL (0.40-0.90); GLUCOSE 112 MG/DL (70-104); SODIUM 140 MMOL/L (135-145); TOTAL CARBON DIOXIDE 38.2 MMOL/L (24-32); TOTAL PROTEIN 6.2 G/DL (6.4-8.2); eGFR 63 ML/MIN
[2017-12-17 21:31] LABS: ANISOCYTOSIS 2+; MICROCYTOSIS 2+; PLATELET ESTIMATE DECREASED; POLYCHROMASIA FEW
[2017-12-17 21:36] LABS: ABG BASE EXCESS 9.2 mmol/L (-2.0-3.0); ABG HCO3 36.3 mmol/L (22.0-26.0); ABG OXYGEN SATURATION 90.9 % (95-98); ABG PCO2 (T) 60.7 mmHg (32.0-45.0); ABG PH (T) 7.393 (7.350-7.450); ABG PO2 (T) 61.6 mmHg (83-108); ALLEN'S TEST Positive; FCOHb 5.8 % (0.5-1.5); FLOW 3 L/min; FMetHb 0.2 % (0.3-1.12); FO2Hb 85.4 % (94-100); PATIENT TEMPERATURE 36.7; TOTAL HEMOGLOBIN 12.9 G/dl (12.0-16.0)
[2017-12-17 21:40] LABS: HEMOGLOBIN A1C 5.8 % (4.5-6.2)
[2017-12-17] MEDS ORDERED: aspirin 81mg tab.chew PO ONE (21:40)
[2017-12-17] MEDS ORDERED: nitroGLYCERIN 0.4mg SUBLingual tab SL PRN (21:40)
[2017-12-17 22:18] LABS: TROPONIN I < 0.04 NG/ML (0.0-0.05)
[2017-12-17] MEDS ORDERED: MORP-64 PO (23:04)
[2017-12-17] MEDS ORDERED: FURO20TA4 PO (23:04)
[2017-12-17] MEDS ORDERED: APIX5TAB3 PO (23:04)
[2017-12-17] MEDS ORDERED: furosemide 10 MG/1 ML 10ml inj IV ONE (23:30)
[2017-12-18] MEDS ORDERED: mag hydrox/Alum hydrox/simeth 30ml oral suspension PO PRN (00:05)
[2017-12-18] MEDS ORDERED: magnesium hydroxide 30ml (MOM) UD suspension PO PRN (00:05)
[2017-12-18] MEDS ORDERED: acetaminophen 325mg tablet PO PRN ×2 (00:05)
[2017-12-18] MEDS ORDERED: ondansetron/PF 4mg/2ml inj IV PRN (00:05)
[2017-12-18] MEDS ORDERED: morphine 4 MG/ML inj SYRINge IV PRN ×2 (00:05)
[2017-12-18] MEDS: divalproex sod 250mg ER (24-hour) tablet PO SCH ×3 (00:48→19:19)
[2017-12-18] MEDS: amitryptiline 50mg tablet PO SCH ×2 (00:48→21:28)
[2017-12-18] MEDS: apixaban 5mg tablet PO SCH ×3 (00:48→19:27)
[2017-12-18] MEDS: flecainide 50mg tablet PO SCH ×3 (01:03→19:20)
[2017-12-18 02:15] VITALS: BP 122/52
[2017-12-18] MEDS: methylPREDNISolone sod succ 125mg/2ml vial IV SCH ×4 (02:57→19:19)
[2017-12-18 07:37] VITALS: BP 128/46
[2017-12-18] MEDS: furosemide 20MG tablet PO SCH ×2 (08:34→19:26)
[2017-12-18] MEDS: ROPINIRole 1mg tablet PO SCH ×3 (08:35→21:29)
[2017-12-18] MEDS: morphine ER 15mg tablet PO SCH ×3 (08:35→21:29)
[2017-12-18 12:15] VITALS: BP 137/59
[2017-12-18] MEDS ORDERED: nitroGLYCERIN 0.4mg SUBLingual tab SL PRN (16:10)
[2017-12-18] MEDS ORDERED: regadenoson 0.4mg/5ml syringe IV ONE (16:10)
[2017-12-18] MEDS ORDERED: metoprolol tartrate 1mg/ml inj IV PRN (16:10)
[2017-12-18] MEDS ORDERED: CAFFEINE CITRATE 60 MG/3 ML injection vial IV PRN (16:10)
[2017-12-18 19:00] VITALS: BP 134/53
[2017-12-18] MEDS: ipratropium/albuterol 3ml nebule NEB PRN (19:46)
[2017-12-18] MEDS: atorvastatin 20mg tablet PO SCH (21:28)
[2017-12-19] VITALS (10 sets, daily range): BP systolic 87–126; BP diastolic 25–61
[2017-12-19] MEDS ORDERED: diphenhydrAMINE 25mg capsule PO ONE
[2017-12-19] MEDS: methylPREDNISolone sod succ 125mg/2ml vial IV SCH ×4 (02:52→20:00)
[2017-12-19 04:51] LABS: BASOPHILS % (AUTO) 0.1 % (0-1); EOSINOPHILS % (AUTO) 0 % (0-6); HEMATOCRIT 37.8 % (35.0-45.0); HEMOGLOBIN 12.3 g/dl (12.0-16.0); LYMPHOCYTES # (AUTO) 0.7 X10'3 (1.1-4.8); LYMPHOCYTES % (AUTO) 11.8 % (21-51); MEAN CORPUSCULAR HEMOGLOBIN 26.3 PG (27.0-31.0); MEAN CORPUSCULAR HGB CONC 32.6 % (33.0-36.5); MEAN CORPUSCULAR VOLUME 80.7 FL (78-98); MEAN PLATELET VOLUME 8.1 FL (7.4-10.4); MONOCYTES # (AUTO) 0.2 X10'3 (0-0.9); MONOCYTES % (AUTO) 3.7 % (2-12); NEUTROPHILS # (AUTO) 4.9 X10'3 (1.8-7.7); NEUTROPHILS % (AUTO) 84.4 % (42-75); PLATELET COUNT 143 X10'3 (140-440); RED BLOOD COUNT 4.68 X10'6 (4.20-5.60); RED CELL DISTRIBUTION WIDTH 18.3 % (11.5-14.5); WHITE BLOOD COUNT 5.9 X10'3 (4.5-11.0)
[2017-12-19 05:04] LABS: ANISOCYTOSIS 2+; MICROCYTOSIS 2+; PLATELET ESTIMATE NORMAL; POLYCHROMASIA FEW
[2017-12-19 05:18] LABS: ALBUMIN 2.1 G/DL (3.4-5.0); ANION GAP 3 (8-16); BLOOD UREA NITROGEN 23 MG/DL (7-18); CALCIUM 9.3 MG/DL (8.5-10.1); CHLORIDE 98 MMOL/L (99-107); GLUCOSE 124 MG/DL (70-104); SODIUM 137 MMOL/L (135-145); TOTAL CARBON DIOXIDE 36.3 MMOL/L (24-32); eGFR 55 ML/MIN
[2017-12-19] MEDS: divalproex sod 250mg ER (24-hour) tablet PO SCH ×2 (07:56→20:00)
[2017-12-19] MEDS: ROPINIRole 1mg tablet PO SCH ×3 (07:57→21:00)
[2017-12-19] MEDS: flecainide 50mg tablet PO SCH ×2 (07:57→20:00)
[2017-12-19] MEDS: morphine ER 15mg tablet PO SCH ×3 (07:58→21:00)
[2017-12-19] MEDS: apixaban 5mg tablet PO SCH ×2 (07:58→20:00)
[2017-12-19] MEDS: ipratropium/albuterol 3ml nebule NEB PRN ×2 (08:07→21:16)
[2017-12-19] MEDS ORDERED: CAFFEINE CITRATE 60 MG/3 ML injection vial IV ONE ×2 (11:19→14:39)
[2017-12-19] MEDS ORDERED: regadenoson 0.4mg/5ml syringe IV ONE ×3 (11:21→14:39)
[2017-12-19] MEDS: furosemide 20MG tablet PO SCH ×2 (13:05→20:00)
[2017-12-19] MEDS: amitryptiline 50mg tablet PO SCH (21:00)
[2017-12-19] MEDS: atorvastatin 20mg tablet PO SCH (21:00)
[2017-12-20] VITALS: BP 135/58
[2017-12-20] MEDS: methylPREDNISolone sod succ 125mg/2ml vial IV SCH ×4 (02:22→20:16)
[2017-12-20] MEDS: diphenhydrAMINE 25mg capsule PO PRN ×2 (05:32→15:10)
[2017-12-20 06:08] LABS: BASOPHILS % (AUTO) 0 % (0-1); EOSINOPHILS % (AUTO) 0.4 % (0-6); HEMATOCRIT 40.1 % (35.0-45.0); HEMOGLOBIN 12.8 g/dl (12.0-16.0); LYMPHOCYTES # (AUTO) 0.5 X10'3 (1.1-4.8); LYMPHOCYTES % (AUTO) 9.2 % (21-51); MEAN CORPUSCULAR HEMOGLOBIN 25.8 PG (27.0-31.0); MEAN CORPUSCULAR HGB CONC 31.9 % (33.0-36.5); MEAN CORPUSCULAR VOLUME 80.8 FL (78-98); MEAN PLATELET VOLUME 7.9 FL (7.4-10.4); MONOCYTES # (AUTO) 0.3 X10'3 (0-0.9); MONOCYTES % (AUTO) 4.8 % (2-12); NEUTROPHILS # (AUTO) 4.5 X10'3 (1.8-7.7); NEUTROPHILS % (AUTO) 85.6 % (42-75); PLATELET COUNT 173 X10'3 (140-440); RED BLOOD COUNT 4.96 X10'6 (4.20-5.60); RED CELL DISTRIBUTION WIDTH 18.6 % (11.5-14.5); WHITE BLOOD COUNT 5.2 X10'3 (4.5-11.0)
[2017-12-20 06:27] LABS: ALBUMIN 2.6 G/DL (3.4-5.0); ANION GAP 2 (8-16); BLOOD UREA NITROGEN 38 MG/DL (7-18); BUN/CREATININE RATIO 33.9 (6.6-38.0); CALCIUM 9.1 MG/DL (8.5-10.1); CHLORIDE 96 MMOL/L (99-107); CREATININE 1.12 MG/DL (0.40-0.90); GLUCOSE 109 MG/DL (70-104); POTASSIUM 4.3 MMOL/L (3.5-5.1); SODIUM 136 MMOL/L (135-145); TOTAL CARBON DIOXIDE 37.9 MMOL/L (24-32); eGFR 49 ML/MIN
[2017-12-20 07:00] VITALS: BP 123/61
[2017-12-20 07:08] LABS: PLATELET ESTIMATE NORMAL
[2017-12-20 07:09] LABS: ANISOCYTOSIS 2+; MICROCYTOSIS 1+; POIKILOCYTOSIS FEW; POLYCHROMASIA FEW
[2017-12-20] MEDS: flecainide 50mg tablet PO SCH ×2 (08:23→20:13)
[2017-12-20] MEDS: divalproex sod 250mg ER (24-hour) tablet PO SCH ×2 (08:24→20:15)
[2017-12-20] MEDS: apixaban 5mg tablet PO SCH ×2 (08:24→20:14)
[2017-12-20] MEDS: morphine ER 15mg tablet PO SCH ×3 (08:24→20:13)
[2017-12-20] MEDS: furosemide 20MG tablet PO SCH ×2 (08:24→20:15)
[2017-12-20] MEDS: ROPINIRole 1mg tablet PO SCH ×3 (08:24→20:13)
[2017-12-20 18:16] VITALS: BP 124/45
[2017-12-20 20:00] VITALS: BP 127/38
[2017-12-20] MEDS: atorvastatin 20mg tablet PO SCH (20:13)
[2017-12-20] MEDS: amitryptiline 50mg tablet PO SCH (20:13)
[2017-12-21] VITALS: BP 135/59
[2017-12-21] MEDS: methylPREDNISolone sod succ 125mg/2ml vial IV SCH ×4 (01:29→21:01)
[2017-12-21] MEDS: diphenhydrAMINE 25mg capsule PO PRN ×2 (05:13→17:08)
[2017-12-21 06:50] LABS: BASOPHILS % (AUTO) 0.1 % (0-1); EOSINOPHILS % (AUTO) 0 % (0-6); HEMATOCRIT 36.3 % (35.0-45.0); HEMOGLOBIN 11.8 g/dl (12.0-16.0); LYMPHOCYTES # (AUTO) 0.6 X10'3 (1.1-4.8); LYMPHOCYTES % (AUTO) 11.9 % (21-51); MEAN CORPUSCULAR HEMOGLOBIN 26.2 PG (27.0-31.0); MEAN CORPUSCULAR HGB CONC 32.4 % (33.0-36.5); MEAN CORPUSCULAR VOLUME 80.8 FL (78-98); MEAN PLATELET VOLUME 7.9 FL (7.4-10.4); MONOCYTES # (AUTO) 0.3 X10'3 (0-0.9); MONOCYTES % (AUTO) 4.8 % (2-12); NEUTROPHILS # (AUTO) 4.3 X10'3 (1.8-7.7); NEUTROPHILS % (AUTO) 83.2 % (42-75); PLATELET COUNT 144 X10'3 (140-440); RED BLOOD COUNT 4.49 X10'6 (4.20-5.60); RED CELL DISTRIBUTION WIDTH 18.5 % (11.5-14.5); WHITE BLOOD COUNT 5.2 X10'3 (4.5-11.0)
[2017-12-21 07:20] LABS: ALBUMIN 2.3 G/DL (3.4-5.0); ANION GAP 0 (8-16); BLOOD UREA NITROGEN 44 MG/DL (7-18); BUN/CREATININE RATIO 44.9 (6.6-38.0); CALCIUM 8.9 MG/DL (8.5-10.1); CHLORIDE 97 MMOL/L (99-107); CREATININE 0.98 MG/DL (0.40-0.90); GLUCOSE 137 MG/DL (70-104); POTASSIUM 4.6 MMOL/L (3.5-5.1); SODIUM 137 MMOL/L (135-145); eGFR 57 ML/MIN
[2017-12-21 07:33] LABS: PLATELET ESTIMATE NORMAL
[2017-12-21 07:36] LABS: ANISOCYTOSIS 2+; HYPOCHROMASIA 1+
[2017-12-21 08:00] VITALS: BP 141/63
[2017-12-21] MEDS: divalproex sod 250mg ER (24-hour) tablet PO SCH ×2 (09:33→21:00)
[2017-12-21] MEDS: ROPINIRole 1mg tablet PO SCH ×3 (09:33→20:56)
[2017-12-21] MEDS: flecainide 50mg tablet PO SCH ×2 (09:34→20:57)
[2017-12-21] MEDS: furosemide 20MG tablet PO SCH ×2 (09:34→20:57)
[2017-12-21] MEDS: morphine ER 15mg tablet PO SCH ×3 (09:34→20:59)
[2017-12-21] MEDS: apixaban 5mg tablet PO SCH ×2 (09:34→20:00)
[2017-12-21] MEDS: ipratropium/albuterol 3ml nebule NEB PRN ×2 (10:49→21:05)
[2017-12-21 12:10] VITALS: BP 124/79
[2017-12-21] MEDS: calamine LOTION TP PRN (17:19)
[2017-12-21 19:30] VITALS: BP 135/62
[2017-12-21] MEDS: atorvastatin 20mg tablet PO SCH (20:56)
[2017-12-21] MEDS: guaiFENesin ER 600mg tablet PO SCH (20:57)
[2017-12-21] MEDS: amitriptyline 25mg tablet PO SCH (20:58)
[2017-12-22] VITALS: BP 132/52
[2017-12-22] MEDS: methylPREDNISolone sod succ 125mg/2ml vial IV SCH ×4 (02:30→19:48)
[2017-12-22 07:26] VITALS: BP 140/47
[2017-12-22] MEDS: ROPINIRole 1mg tablet PO SCH ×3 (08:54→19:44)
[2017-12-22] MEDS: apixaban 5mg tablet PO SCH ×2 (08:54→19:43)
[2017-12-22] MEDS: flecainide 50mg tablet PO SCH ×2 (08:54→19:46)
[2017-12-22] MEDS: guaiFENesin ER 600mg tablet PO SCH ×2 (08:54→19:46)
[2017-12-22] MEDS: morphine ER 15mg tablet PO SCH ×3 (08:54→19:44)
[2017-12-22] MEDS: furosemide 20MG tablet PO SCH ×2 (08:54→19:43)
[2017-12-22 08:55] LABS: BASOPHILS % (AUTO) 0.4 % (0-1); EOSINOPHILS % (AUTO) 0 % (0-6); HEMATOCRIT 38.7 % (35.0-45.0); HEMOGLOBIN 12.4 g/dl (12.0-16.0); LYMPHOCYTES # (AUTO) 0.7 X10'3 (1.1-4.8); LYMPHOCYTES % (AUTO) 16.4 % (21-51); MEAN CORPUSCULAR VOLUME 81.1 FL (78-98); MEAN PLATELET VOLUME 7.9 FL (7.4-10.4); MONOCYTES # (AUTO) 0.3 X10'3 (0-0.9); MONOCYTES % (AUTO) 6.4 % (2-12); NEUTROPHILS # (AUTO) 3.1 X10'3 (1.8-7.7); NEUTROPHILS % (AUTO) 76.8 % (42-75); PLATELET COUNT 136 X10'3 (140-440); RED BLOOD COUNT 4.78 X10'6 (4.20-5.60); RED CELL DISTRIBUTION WIDTH 18.8 % (11.5-14.5)
[2017-12-22] MEDS: divalproex sod 250mg ER (24-hour) tablet PO SCH ×2 (08:55→19:53)
[2017-12-22 09:11] LABS: ALBUMIN 2.4 G/DL (3.4-5.0); ANION GAP 2 (8-16); BLOOD UREA NITROGEN 43 MG/DL (7-18); BUN/CREATININE RATIO 46.7 (6.6-38.0); CALCIUM 8.4 MG/DL (8.5-10.1); CHLORIDE 96 MMOL/L (99-107); CREATININE 0.92 MG/DL (0.40-0.90); GLUCOSE 125 MG/DL (70-104); POTASSIUM 4.3 MMOL/L (3.5-5.1); SODIUM 139 MMOL/L (135-145); eGFR 61 ML/MIN
[2017-12-22 09:13] LABS: TOTAL CARBON DIOXIDE 41.4 MMOL/L (24-32)
[2017-12-22 11:18] VITALS: BP 135/51
[2017-12-22] MEDS: ipratropium/albuterol 3ml nebule NEB PRN (19:27)
[2017-12-22 19:30] VITALS: BP 128/78
[2017-12-22] MEDS: amitriptyline 25mg tablet PO SCH (19:45)
[2017-12-22] MEDS: atorvastatin 20mg tablet PO SCH (19:46)
[2017-12-22] MEDS: diphenhydrAMINE 25mg capsule PO PRN (19:53)
[2017-12-22] MEDS: calamine LOTION TP PRN (19:53)
[2017-12-23] VITALS: BP 117/48
[2017-12-23] MEDS: methylPREDNISolone sod succ 125mg/2ml vial IV SCH ×2 (01:47→08:39)
[2017-12-23 06:06] LABS: BASOPHILS % (AUTO) 0.3 % (0-1); EOSINOPHILS % (AUTO) 0 % (0-6); HEMATOCRIT 44.5 % (35.0-45.0); HEMOGLOBIN 14.4 g/dl (12.0-16.0); LYMPHOCYTES # (AUTO) 0.7 X10'3 (1.1-4.8); LYMPHOCYTES % (AUTO) 9.5 % (21-51); MEAN CORPUSCULAR HEMOGLOBIN 26.2 PG (27.0-31.0); MEAN CORPUSCULAR HGB CONC 32.3 % (33.0-36.5); MEAN CORPUSCULAR VOLUME 81.2 FL (78-98); MEAN PLATELET VOLUME 7.9 FL (7.4-10.4); MONOCYTES # (AUTO) 0.4 X10'3 (0-0.9); MONOCYTES % (AUTO) 5.1 % (2-12); NEUTROPHILS # (AUTO) 6.4 X10'3 (1.8-7.7); NEUTROPHILS % (AUTO) 85.1 % (42-75); PLATELET COUNT 179 X10'3 (140-440); RED BLOOD COUNT 5.48 X10'6 (4.20-5.60); RED CELL DISTRIBUTION WIDTH 18.7 % (11.5-14.5); WHITE BLOOD COUNT 7.6 X10'3 (4.5-11.0)
[2017-12-23 06:18] LABS: ALBUMIN 2.9 G/DL (3.4-5.0); ANION GAP 0 (8-16); BLOOD UREA NITROGEN 42 MG/DL (7-18); BUN/CREATININE RATIO 36.8 (6.6-38.0); CALCIUM 9.2 MG/DL (8.5-10.1); CHLORIDE 95 MMOL/L (99-107); CREATININE 1.14 MG/DL (0.40-0.90); GLUCOSE 92 MG/DL (70-104); POTASSIUM 4.1 MMOL/L (3.5-5.1); SODIUM 140 MMOL/L (135-145); eGFR 48 ML/MIN
[2017-12-23 06:31] LABS: TOTAL CARBON DIOXIDE 44.8 MMOL/L (24-32)
[2017-12-23 06:41] LABS: ANISOCYTOSIS 2+; PLATELET ESTIMATE NORMAL
[2017-12-23 07:13] VITALS: BP 113/47
[2017-12-23] MEDS: ipratropium/albuterol 3ml nebule NEB PRN (08:36)
[2017-12-23] MEDS: morphine ER 15mg tablet PO SCH ×2 (08:38→13:00)
[2017-12-23] MEDS: flecainide 50mg tablet PO SCH (08:38)
[2017-12-23] MEDS: furosemide 20MG tablet PO SCH (08:38)
[2017-12-23] MEDS: ROPINIRole 1mg tablet PO SCH ×2 (08:38→13:00)
[2017-12-23] MEDS: guaiFENesin ER 600mg tablet PO SCH (08:39)
[2017-12-23] MEDS: divalproex sod 250mg ER (24-hour) tablet PO SCH (08:39)
[2017-12-23] MEDS: apixaban 5mg tablet PO SCH (08:39)
[2017-12-23] MEDS ORDERED: LEVO250T2 PO (09:39)
[2017-12-23] MEDS ORDERED: METH4TAB81 PO (09:39)
[2017-12-23] MEDS ORDERED: levoFLOXACIN 500mg tablet PO SCH (11:00)
[2017-12-23 11:27] VITALS: BP 136/49
[2017-12-23] MEDS ORDERED: methylPREDNISolone sod succ/PF 40mg inj. IV SCH (14:00)
== END 2017-12-23 13:33 | disposition home health service (06) | DRG 190 ==
LOC: ER 20:10 → ED HOLD 12-18 00:05 → SUR 3N 12-18 02:35
PROVIDERS: ADMIT Internal Medicine; ATTEND Internal Medicine
PROC: 4A02XM4 Measurement of Cardiac Total Activity, External Approach (ICD-10-PCS; principal; 2017-12-19)
PROC: 3E033HZ Introduction of Radioactive Substance into Peripheral Vein, Percutaneous Approach (ICD-10-PCS; 2017-12-19)
DX: J44.1 Chronic obstructive pulmonary disease with (acute) exacerbation (principal); J18.9 Pneumonia, unspecified organism; J96.20 Acute and chronic respiratory failure, unspecified whether with hypoxia or hypercapnia; I13.0 Hypertensive heart and chronic kidney disease with heart failure and stage 1 through stage 4 chronic kidney disease, or unspecified chronic kidney disease; Z68.41 Body mass index [BMI] 40.0-44.9, adult; E87.4 Mixed disorder of acid-base balance; I24.9 Acute ischemic heart disease, unspecified; J44.0 Chronic obstructive pulmonary disease with (acute) lower respiratory infection; N18.9 Chronic kidney disease, unspecified; E66.01 Morbid (severe) obesity due to excess calories; E03.9 Hypothyroidism, unspecified; E11.22 Type 2 diabetes mellitus with diabetic chronic kidney disease; F20.9 Schizophrenia, unspecified; G20 Parkinson's disease; F41.9 Anxiety disorder, unspecified; G89.29 Other chronic pain; F31.9 Bipolar disorder, unspecified; F17.210 Nicotine dependence, cigarettes, uncomplicated; M54.9 Dorsalgia, unspecified; I50.9 Heart failure, unspecified; I48.91 Unspecified atrial fibrillation; Z90.49 Acquired absence of other specified parts of digestive tract; Z90.710 Acquired absence of both cervix and uterus; Z90.721 Acquired absence of ovaries, unilateral; Z95.0 Presence of cardiac pacemaker; Z99.3 Dependence on wheelchair; Z99.81 Dependence on supplemental oxygen; Z88.1 Allergy status to other antibiotic agents; Z88.8 Allergy status to other drugs, medicaments and biological substances; Z91.018 Allergy to other foods; Z79.899 Other long term (current) drug therapy; Z79.01 Long term (current) use of anticoagulants; Z86.73 Personal history of transient ischemic attack (TIA), and cerebral infarction without residual deficits; Z87.442 Personal history of urinary calculi; Z80.9 Family history of malignant neoplasm, unspecified; Z84.89 Family history of other specified conditions; Z71.6 Tobacco abuse counseling
CPT/HCPCS: 36415; 36600; 71045; 78452; 80048; 80053; 82803; 82948; 83036; 83880; 84484; 85018; 85025; 85610; 85730; 87070; 93005; 93017; 93306; 94640; 94760; 96374; 96375; 99285; A9500; J1100; J1940; J2930; Q0163

== ENCOUNTER 2017-12-25 19:28 | Emergency (ER) | payer MEDICARE, MEDICAID ==
[~2017-12-25] VITALS: Ht 157.5 cm; Wt 95.5 kg
[~2017-12-25 19:28] MED LIST changes: -APIX2.5T PO; +APIX5TAB3 PO; -ASPI-41 PO; -BACL10TA PO; -BECL8.7A7 INH; -BUPR-94 PO; -CARB1TAB23 PO; -DIVA125T31 PO; +FURO20TA4 PO; +IPRA3AMP IH; -IPRA3AMP31 IH; +LEVO250T2 PO; -LEVO50TA8 PO; -MECL12.584 PO; +METH4TAB81 PO; -MONT10TA24 PO; +MORP-64 PO; -MORP30TA PO; -OMEP40CA37 PO; -POLY17PO10 PO; -PRED5TAB PO; -RISP2TAB3 PO; -VENTOLIN; -VERA120T2 PO
[2017-12-25] MEDS ORDERED: ipratropium/albuterol 3ml nebule NEB ONE (20:20)
[2017-12-25 21:38] LABS: BASOPHILS % (AUTO) 0.4 % (0-1); EOSINOPHILS # (AUTO) 0.2 X10'3 (0-0.9); EOSINOPHILS % (AUTO) 2.1 % (0-6); HEMATOCRIT 40.4 % (35.0-45.0); HEMOGLOBIN 13.1 g/dl (12.0-16.0); LYMPHOCYTES # (AUTO) 2.4 X10'3 (1.1-4.8); LYMPHOCYTES % (AUTO) 30.2 % (21-51); MEAN CORPUSCULAR HEMOGLOBIN 26.3 PG (27.0-31.0); MEAN CORPUSCULAR HGB CONC 32.4 % (33.0-36.5); MEAN CORPUSCULAR VOLUME 81.2 FL (78-98); MONOCYTES # (AUTO) 0.8 X10'3 (0-0.9); MONOCYTES % (AUTO) 9.7 % (2-12); NEUTROPHILS # (AUTO) 4.6 X10'3 (1.8-7.7); NEUTROPHILS % (AUTO) 57.6 % (42-75); PLATELET COUNT 110 X10'3 (140-440); RED BLOOD COUNT 4.97 X10'6 (4.20-5.60); RED CELL DISTRIBUTION WIDTH 19.9 % (11.5-14.5)
[2017-12-25 21:40] LABS: PARTIAL THROMBOPLASTIN TIME 25 SECONDS (22-32); PROTHROMBIN TIME 10.4 SECONDS (9.0-12.0)
[2017-12-25 21:52] LABS: ALANINE AMINOTRANSFERASE 49 U/L (12-78); ALBUMIN 2.1 G/DL (3.4-5.0); ALBUMIN/GLOBULIN RATIO 0.6 (1.1-1.5); ALKALINE PHOSPHATASE 179 IU/L (46-116); ANION GAP 2 (8-16); ASPARTATE AMINO TRANSFERASE 41 U/L (10-37); BILIRUBIN,TOTAL 0.2 MG/DL (0.1-1.0); BLOOD UREA NITROGEN 25 MG/DL (7-18); BUN/CREATININE RATIO 26.9 (6.6-38.0); CALCIUM 8.4 MG/DL (8.5-10.1); CHLORIDE 101 MMOL/L (99-107); CREATININE 0.93 MG/DL (0.40-0.90); GLUCOSE 113 MG/DL (70-104); POTASSIUM 4.5 MMOL/L (3.5-5.1); SODIUM 140 MMOL/L (135-145); TOTAL CARBON DIOXIDE 37.5 MMOL/L (24-32); TOTAL PROTEIN 5.8 G/DL (6.4-8.2); eGFR 60 ML/MIN
[2017-12-25 21:57] LABS: ANISOCYTOSIS 2+; PLATELET ESTIMATE NORMAL; POLYCHROMASIA 1+
[2017-12-25 22:27] VITALS: BP 110/52
== END 2017-12-25 22:29 | disposition home or self-care (01) ==
LOC: ER 19:30
DX: J44.9 Chronic obstructive pulmonary disease, unspecified (principal); F17.200 Nicotine dependence, unspecified, uncomplicated; G20 Parkinson's disease; I48.91 Unspecified atrial fibrillation; I50.9 Heart failure, unspecified; E11.9 Type 2 diabetes mellitus without complications; G89.29 Other chronic pain; I11.0 Hypertensive heart disease with heart failure; F31.9 Bipolar disorder, unspecified; Z90.49 Acquired absence of other specified parts of digestive tract; Z90.710 Acquired absence of both cervix and uterus; Z98.890 Other specified postprocedural states; Z90.721 Acquired absence of ovaries, unilateral; Z56.0 Unemployment, unspecified; Z88.1 Allergy status to other antibiotic agents; Z79.899 Other long term (current) drug therapy; Z79.01 Long term (current) use of anticoagulants
CPT/HCPCS: 36415; 71045; 80053; 85025; 85610; 85730; 93005; 94640; 94760; 99285

== ENCOUNTER 2018-01-09 08:02 | Emergency (ER) | payer MEDICARE, MEDICAID ==
[~2018-01-09] VITALS: Ht 157.5 cm; Wt 95.5 kg
[~2018-01-09 08:02] MED LIST changes: -IPRA3AMP IH; +IPRA3AMP31 IH
[2018-01-09 08:29] LABS: BASOPHILS % (AUTO) 0.5 % (0-1); EOSINOPHILS # (AUTO) 0.2 X10'3 (0-0.9); EOSINOPHILS % (AUTO) 3.5 % (0-6); HEMATOCRIT 38.4 % (35.0-45.0); HEMOGLOBIN 12.4 g/dl (12.0-16.0); LYMPHOCYTES # (AUTO) 1.2 X10'3 (1.1-4.8); LYMPHOCYTES % (AUTO) 26.8 % (21-51); MEAN CORPUSCULAR HEMOGLOBIN 26.8 PG (27.0-31.0); MEAN CORPUSCULAR HGB CONC 32.2 % (33.0-36.5); MEAN CORPUSCULAR VOLUME 83.4 FL (78-98); MEAN PLATELET VOLUME 8.5 FL (7.4-10.4); MONOCYTES # (AUTO) 0.6 X10'3 (0-0.9); MONOCYTES % (AUTO) 13.2 % (2-12); NEUTROPHILS # (AUTO) 2.5 X10'3 (1.8-7.7); PLATELET COUNT 121 X10'3 (140-440); RED BLOOD COUNT 4.61 X10'6 (4.20-5.60); WHITE BLOOD COUNT 4.5 X10'3 (4.5-11.0)
[2018-01-09 08:39] LABS: INR 0.9 INR; PARTIAL THROMBOPLASTIN TIME 28 SECONDS (22-32); PROTHROMBIN TIME 9.7 SECONDS (9.0-12.0)
[2018-01-09 08:44] LABS: ALANINE AMINOTRANSFERASE 27 U/L (12-78); ALBUMIN 2.2 G/DL (3.4-5.0); ALBUMIN/GLOBULIN RATIO 0.6 (1.1-1.5); ALKALINE PHOSPHATASE 143 IU/L (46-116); ANION GAP -2 (8-16); ASPARTATE AMINO TRANSFERASE 25 U/L (10-37); BILIRUBIN,TOTAL 0.3 MG/DL (0.1-1.0); BLOOD UREA NITROGEN 11 MG/DL (7-18); BUN/CREATININE RATIO 12.4 (6.6-38.0); CALCIUM 8.7 MG/DL (8.5-10.1); CHLORIDE 102 MMOL/L (99-107); CREATININE 0.89 MG/DL (0.40-0.90); GLUCOSE 155 MG/DL (70-104); MAGNESIUM 2.2 MG/DL (1.5-2.4); POTASSIUM 4.6 MMOL/L (3.5-5.1); SODIUM 137 MMOL/L (135-145); TOTAL CARBON DIOXIDE 36.9 MMOL/L (24-32); TOTAL PROTEIN 6.1 G/DL (6.4-8.2); eGFR 63 ML/MIN
[2018-01-09 08:58] LABS: CLARITY,URINE CLEAR (Clear); COLOR,URINE YELLOW (Yellow); GLUCOSE, URINE NEGATIVE (Neg); KETONES,URINE NEGATIVE (Neg); LEUKOCYTE ESTERASE ,URINE NEGATIVE (Neg); NITRITES, URINE NEGATIVE (Neg); OCCULT BLOOD,URINE NEGATIVE (Neg); PH,URINE 6.5 (4.8-8.0); PROTEIN,URINE NEGATIVE (Neg)
[2018-01-09 08:59] LABS: UA COLLECTION TYPE STRAIGHT CATH
[2018-01-09] MEDS ORDERED: levoFLOXACIN-Levaquin 500mg/D5 100 ML IV ONE (09:15)
[2018-01-09 10:01] LABS: PLATELET ESTIMATE DECREASED; POIKILOCYTOSIS FEW; POLYCHROMASIA 1+
[2018-01-09] MEDS ORDERED: LEVO500T2 PO (11:12)
[2018-01-09 11:31] VITALS: BP 123/62
== END 2018-01-09 11:31 | disposition home or self-care (01) ==
LOC: ER 08:03
DX: L03.115 Cellulitis of right lower limb (principal); R60.0 Localized edema; I11.0 Hypertensive heart disease with heart failure; I50.9 Heart failure, unspecified; I48.91 Unspecified atrial fibrillation; J44.9 Chronic obstructive pulmonary disease, unspecified; E11.9 Type 2 diabetes mellitus without complications; G89.29 Other chronic pain; Z90.49 Acquired absence of other specified parts of digestive tract; Z90.710 Acquired absence of both cervix and uterus; Z98.890 Other specified postprocedural states; Z88.1 Allergy status to other antibiotic agents; Z88.8 Allergy status to other drugs, medicaments and biological substances; Z91.018 Allergy to other foods; Z79.2 Long term (current) use of antibiotics; Z79.899 Other long term (current) drug therapy
CPT/HCPCS: 36415; 71045; 80053; 81003; 83605; 83735; 84145; 85025; 85610; 85730; 93971; 96365; 99285; J1956; 93005

== ENCOUNTER 2018-10-20 23:13 | Emergency (ER) | payer MEDICARE, MEDICAID ==
[~2018-10-20] VITALS: Ht 157.5 cm; Wt 100.0 kg
[~2018-10-20 23:13] MED LIST changes: -LEVO250T2 PO
[2018-10-21] MEDS ORDERED: DOXYCYCLINE 100MG CAPSULE PO STA (00:35)
[2018-10-21] MEDS ORDERED: predniSONE 20 mg tablet PO ONE (00:35)
[2018-10-21] MEDS ORDERED: PRED20TA PO (00:40)
[2018-10-21] MEDS ORDERED: DOXY100C43 PO (00:40)
[2018-10-21 01:04] VITALS: BP 105/60
== END 2018-10-21 01:07 | disposition home or self-care (01) ==
LOC: ER 23:15
DX: L03.314 Cellulitis of groin (principal); I48.91 Unspecified atrial fibrillation; I11.0 Hypertensive heart disease with heart failure; I50.9 Heart failure, unspecified; J44.9 Chronic obstructive pulmonary disease, unspecified; E11.9 Type 2 diabetes mellitus without complications; G89.29 Other chronic pain; F17.200 Nicotine dependence, unspecified, uncomplicated; Z56.0 Unemployment, unspecified; Z86.73 Personal history of transient ischemic attack (TIA), and cerebral infarction without residual deficits; Z90.49 Acquired absence of other specified parts of digestive tract; Z90.710 Acquired absence of both cervix and uterus; Z95.0 Presence of cardiac pacemaker; Z91.018 Allergy to other foods; Z88.1 Allergy status to other antibiotic agents; Z88.8 Allergy status to other drugs, medicaments and biological substances; Z79.899 Other long term (current) drug therapy; Z88.5 Allergy status to narcotic agent
CPT/HCPCS: 82948; 99283; J7512

== ENCOUNTER 2018-12-11 20:23 | Emergency (ER) | payer MEDICARE, MEDICAID ==
[~2018-12-11] VITALS: Ht 157.5 cm; Wt 105.9 kg
--- NOTE | 2018-12-11 22:48 | NUR ---
PT GETTING VAS IN HER LFT LEG.
[2018-12-11 23:33] LABS: HEMOGLOBIN 14.3 g/dl (12.0-16.0)
[2018-12-11 23:35] LABS: BASOPHILS # (AUTO) 0.2 X10'3 (0-0.2); EOSINOPHILS # (AUTO) 0.2 X10'3 (0-0.9); EOSINOPHILS % (AUTO) 1.9 % (0-6); LYMPHOCYTES # (AUTO) 3.6 X10'3 (1.1-4.8); LYMPHOCYTES % (AUTO) 39.9 % (21-51); MEAN CORPUSCULAR HEMOGLOBIN 30.5 PG (27.0-31.0); MEAN CORPUSCULAR HGB CONC 32.5 g/dL (33.0-36.5); MEAN PLATELET VOLUME 9.6 FL (7.4-10.4); MONOCYTES # (AUTO) 0.9 X10'3 (0-0.9); MONOCYTES % (AUTO) 9.4 % (2-12); NEUTROPHILS # (AUTO) 4.2 X10'3 (1.8-7.7); NEUTROPHILS % (AUTO) 46.8 % (42-75); PLATELET COUNT 132 X10'3 (140-440); RED BLOOD COUNT 4.68 X10'6 (4.20-5.60); WHITE BLOOD COUNT 9.1 X10'3 (4.5-11.0)
[2018-12-11 23:58] LABS: ALANINE AMINOTRANSFERASE 22 U/L (12-78); ALBUMIN 2.7 G/DL (3.4-5.0); ALBUMIN/GLOBULIN RATIO 0.8 (1.1-1.5); ALKALINE PHOSPHATASE 52 IU/L (46-116); ANION GAP 1 (8-16); ASPARTATE AMINO TRANSFERASE 6 U/L (10-37); BILIRUBIN,TOTAL 0.2 MG/DL (0.1-1.0); BLOOD UREA NITROGEN 30 MG/DL (7-18); BUN/CREATININE RATIO 34.9 (6.6-38.0); CHLORIDE 106 MMOL/L (99-107); CREATININE 0.86 MG/DL (0.40-0.90); GLUCOSE 130 MG/DL (70-104); POTASSIUM 4.7 MMOL/L (3.5-5.1); SODIUM 141 MMOL/L (135-145); TOTAL CARBON DIOXIDE 34.5 MMOL/L (24-32); TOTAL PROTEIN 5.9 G/DL (6.4-8.2); eGFR 66 ML/MIN
--- NOTE | 2018-12-12 01:00 | NUR ---
DR HUBER EXPLAINED THE PT ABOUT THE CAUSE OF WEEPING FLUID FROM LFT LEG,PT VERBALIZED UNDERSTANDING,PT REQUESTED FOR LASIX PRESCRIPTION,WILL CALL FOR CAB FOR THE PT,WIATING FOR PRESCRIPTION.
[2018-12-12] MEDS ORDERED: FURO-150 PO (01:08)
[2018-12-12 01:15] VITALS: BP 120/60
== END 2018-12-12 01:18 | disposition home or self-care (01) ==
LOC: ER 20:23
DX: I87.8 Other specified disorders of veins (principal); G20 Parkinson's disease; I48.91 Unspecified atrial fibrillation; I50.9 Heart failure, unspecified; I11.0 Hypertensive heart disease with heart failure; J44.9 Chronic obstructive pulmonary disease, unspecified; E11.9 Type 2 diabetes mellitus without complications; G89.29 Other chronic pain; F41.9 Anxiety disorder, unspecified; F31.9 Bipolar disorder, unspecified; F20.9 Schizophrenia, unspecified; Z86.73 Personal history of transient ischemic attack (TIA), and cerebral infarction without residual deficits; Z90.49 Acquired absence of other specified parts of digestive tract; Z90.710 Acquired absence of both cervix and uterus; Z95.0 Presence of cardiac pacemaker; Z98.890 Other specified postprocedural states; Z56.0 Unemployment, unspecified; Z91.018 Allergy to other foods; Z88.1 Allergy status to other antibiotic agents; Z88.8 Allergy status to other drugs, medicaments and biological substances; Z79.01 Long term (current) use of anticoagulants
CPT/HCPCS: 36415; 80053; 85025; 93971; 99284

== ENCOUNTER 2019-01-03 21:34 | Observation (INO) | payer MEDICARE, MEDICAID ==
[~2019-01-03] VITALS: Ht 157.5 cm; Wt 108.2 kg
[~2019-01-03 21:34] MED LIST changes: +FURO-150 PO; -MORP-64 PO; +MORP-92 PO
[2019-01-03] MEDS ORDERED: iohexol 300mg/ml 100ml inj. ONE (23:21)
[2019-01-04 00:49] LABS: ALANINE AMINOTRANSFERASE 50 U/L (12-78); ALBUMIN 2.8 G/DL (3.4-5.0); ALBUMIN/GLOBULIN RATIO 0.7 (1.1-1.5); ALKALINE PHOSPHATASE 88 IU/L (46-116); ANION GAP 3 (8-16); ASPARTATE AMINO TRANSFERASE 8 U/L (10-37); BILIRUBIN,TOTAL 0.3 MG/DL (0.1-1.0); BLOOD UREA NITROGEN 20 MG/DL (7-18); BUN/CREATININE RATIO 22.2 (6.6-38.0); CHLORIDE 103 MMOL/L (99-107); GLUCOSE 113 MG/DL (70-104); POTASSIUM 4.8 MMOL/L (3.5-5.1); SODIUM 143 MMOL/L (135-145); TOTAL CARBON DIOXIDE 36.7 MMOL/L (24-32); TOTAL PROTEIN 6.7 G/DL (6.4-8.2); eGFR 62 ML/MIN
[2019-01-04 01:26] LABS: BASOPHILS % (AUTO) 0.6 % (0-1); EOSINOPHILS # (AUTO) 0.2 X10'3 (0-0.9); EOSINOPHILS % (AUTO) 3.3 % (0-6); HEMATOCRIT 41.2 % (35.0-45.0); HEMOGLOBIN 13.6 g/dl (12.0-16.0); LYMPHOCYTES # (AUTO) 1.8 X10'3 (1.1-4.8); LYMPHOCYTES % (AUTO) 29.9 % (21-51); MEAN CORPUSCULAR HEMOGLOBIN 31.3 PG (27.0-31.0); MEAN CORPUSCULAR HGB CONC 33.1 g/dL (33.0-36.5); MEAN CORPUSCULAR VOLUME 94.6 FL (78-98); MEAN PLATELET VOLUME 8.3 FL (7.4-10.4); MONOCYTES # (AUTO) 0.7 X10'3 (0-0.9); MONOCYTES % (AUTO) 11.9 % (2-12); NEUTROPHILS # (AUTO) 3.3 X10'3 (1.8-7.7); NEUTROPHILS % (AUTO) 54.3 % (42-75); PLATELET COUNT 213 X10'3 (140-440); RED BLOOD COUNT 4.35 X10'6 (4.20-5.60); RED CELL DISTRIBUTION WIDTH 17.8 % (11.5-14.5); WHITE BLOOD COUNT 6.2 X10'3 (4.5-11.0)
[2019-01-04] MEDS ORDERED: tranexamic acid inj. 1,000 MG in normal saline 100ml IV soln 100 ML IV ONE (02:20)
[2019-01-04] MEDS ORDERED: mag hydrox/Alum hydrox/simeth 30ml oral suspension PO PRN (04:15)
[2019-01-04] MEDS ORDERED: acetaminophen 325mg tablet PO PRN ×2 (04:15)
[2019-01-04] MEDS ORDERED: magnesium hydroxide 30ml (MOM) UD suspension PO PRN (04:15)
[2019-01-04] MEDS ORDERED: HYDROcodone/acetaminophen 5mg/325mg tablet PO PRN (04:15)
[2019-01-04] MEDS ORDERED: ondansetron/PF 4mg/2ml inj IV PRN (04:15)
[2019-01-04] MEDS ORDERED: morphine 2 MG/ML inj. syringe IV PRN ×2 (04:15)
--- NOTE | 2019-01-04 06:44 | NUR ---
Problems reprioritized. Patient report given, questions answered & plan of care reviewed with Evelia WEINBERG.
[2019-01-04] MEDS ORDERED: BACL10TA2 PO (07:18)
[2019-01-04 08:00] VITALS: BP 150/51
[2019-01-04 09:54] LABS: HEMOGLOBIN A1C 6.6 % (4.5-6.2)
[2019-01-04] MEDS ORDERED: baclofen 10mg tablet PO PRN (11:10)
[2019-01-04] MEDS ORDERED: ipratropium/albuterol 3ml nebule IH PRN (11:10)
[2019-01-04 12:00] VITALS: BP 121/53
[2019-01-04] MEDS: ROPINIRole 1mg tablet PO SCH ×2 (14:35→21:12)
[2019-01-04] MEDS: HYDROcodone/acetaminophen 10/325mg tab PO PRN ×2 (14:36→21:27)
[2019-01-04] MEDS ORDERED: LEVO50TA8 PO (15:30)
[2019-01-04] MEDS ORDERED: NYST15OI14 (15:30)
--- NOTE | 2019-01-04 18:28 | NUR ---
Problems reprioritized. Patient report given, questions answered & plan of care reviewed with Brandon WEINBERG.
--- NOTE | 2019-01-04 18:30 | NUR ---
Patient in room [facility]. I have received report from SIN WEINBERG and had the opportunity to ask questions and assume patient care.
[2019-01-04 20:00] VITALS: BP 106/53
[2019-01-04] MEDS ORDERED: apixaban 5mg tablet PO SCH (20:00)
[2019-01-04] MEDS ORDERED: atorvastatin 20mg tablet PO SCH (21:00)
[2019-01-04] MEDS ORDERED: amitriptyline 50mg tablet PO SCH (21:00)
[2019-01-04] MEDS: divalproex sodium 500mg tablet.DR PO SCH (21:10)
[2019-01-04] MEDS: furosemide 20MG tablet PO SCH (21:12)
[2019-01-04] MEDS: flecainide 50mg tablet PO SCH (21:13)
[2019-01-04] MEDS ORDERED: dextrose ORAL solution 15 GM/59 ML bottle PO PRN ×2 (21:40)
[2019-01-04] MEDS ORDERED: dextrose 50%-water 50ml dispensing syringe IV PRN ×2 (21:40)
[2019-01-04] MEDS ORDERED: MESSAGE TO PHARMACY PO ONE (21:40)
[2019-01-04] MEDS ORDERED: glucagon, human recombinant 1mg kit SUBCUT PRN (21:40)
[2019-01-04] MEDS ORDERED: insulin glargine (Lantus) pen - multi-dose SQ SCH (22:05)
[2019-01-05] VITALS: BP 133/47
[2019-01-05 05:50] LABS: BASOPHILS % (AUTO) 0.5 % (0-1); EOSINOPHILS # (AUTO) 0.1 X10'3 (0-0.9); HEMATOCRIT 35.5 % (35.0-45.0); HEMOGLOBIN 11.9 g/dl (12.0-16.0); LYMPHOCYTES # (AUTO) 1.3 X10'3 (1.1-4.8); LYMPHOCYTES % (AUTO) 27.2 % (21-51); MEAN CORPUSCULAR HEMOGLOBIN 31.2 PG (27.0-31.0); MEAN CORPUSCULAR HGB CONC 33.4 g/dL (33.0-36.5); MEAN CORPUSCULAR VOLUME 93.5 FL (78-98); MONOCYTES # (AUTO) 0.6 X10'3 (0-0.9); MONOCYTES % (AUTO) 11.7 % (2-12); NEUTROPHILS # (AUTO) 2.9 X10'3 (1.8-7.7); NEUTROPHILS % (AUTO) 57.6 % (42-75); PLATELET COUNT 182 X10'3 (140-440); RED CELL DISTRIBUTION WIDTH 17.5 % (11.5-14.5)
[2019-01-05 05:59] LABS: ALBUMIN 2.3 G/DL (3.4-5.0); ANION GAP 4 (8-16); BLOOD UREA NITROGEN 21 MG/DL (7-18); BUN/CREATININE RATIO 19.6 (6.6-38.0); CALCIUM 9.6 MG/DL (8.5-10.1); CHLORIDE 101 MMOL/L (99-107); CREATININE 1.07 MG/DL (0.40-0.90); GLUCOSE 151 MG/DL (70-104); POTASSIUM 4.8 MMOL/L (3.5-5.1); SODIUM 139 MMOL/L (135-145); TOTAL CARBON DIOXIDE 34.4 MMOL/L (24-32); eGFR 51 ML/MIN
--- NOTE | 2019-01-05 06:24 | NUR ---
Problems reprioritized. Patient report given, questions answered & plan of care reviewed with SIN WEINBERG.
[2019-01-05] MEDS: flecainide 50mg tablet PO SCH (07:22)
[2019-01-05] MEDS: ROPINIRole 1mg tablet PO SCH ×2 (07:23→12:19)
[2019-01-05] MEDS: furosemide 20MG tablet PO SCH (07:23)
[2019-01-05] MEDS: divalproex sodium 500mg tablet.DR PO SCH (07:26)
[2019-01-05] MEDS: HYDROcodone/acetaminophen 10/325mg tab PO PRN ×2 (07:33→12:19)
[2019-01-05 08:00] VITALS: BP 109/31
[2019-01-05] MEDS ORDERED: furosemide 20MG tablet PO SCH (08:00)
[2019-01-05] MEDS: insulin Lispro (HumaLOG) vial - multi-dose SQ SCH ×2 (08:13→14:58)
--- NOTE | 2019-01-05 10:00 | NUR ---
[facility] downtime charting
[2019-01-05 11:00] VITALS: BP 121/52
[2019-01-05 13:20] LABS: HEMATOCRIT 38.9 % (35.0-45.0); HEMOGLOBIN 13.2 g/dl (12.0-16.0); MEAN CORPUSCULAR HEMOGLOBIN 31.8 PG (27.0-31.0); MEAN CORPUSCULAR HGB CONC 33.9 g/dL (33.0-36.5); MEAN CORPUSCULAR VOLUME 93.9 FL (78-98); MEAN PLATELET VOLUME 7.8 FL (7.4-10.4); PLATELET COUNT 200 X10'3 (140-440); RED BLOOD COUNT 4.14 X10'6 (4.20-5.60); RED CELL DISTRIBUTION WIDTH 17.6 % (11.5-14.5); WHITE BLOOD COUNT 6.2 X10'3 (4.5-11.0)
--- NOTE | 2019-01-05 16:05 | NUR ---
All belongings went home with patient. Bipap machine home with patient, Medications from pharmacy home with patient. Addendum: 01/05/19 at 1606 by Evelia Cage RN Amended: Links added.
--- NOTE | 2019-01-05 16:07 | NUR ---
Patient dc home with friend. Bipap home with patient. All education provided and acknowledged. Patient to see PCP and do blood work. Patient educated to not take Eliquis for 1 week and acknowledges. VSS. A&Ox4
[2019-01-05] MEDS ORDERED: insulin glargine (Lantus) pen - multi-dose SQ SCH (21:00)
== END 2019-01-05 15:50 | disposition home health service (06) ==
LOC: ER 21:35 → SUR 3N 01-04 05:56 → CMPBEDREQ 01-04 19:45
PROVIDERS: ADMIT Internal Medicine; ATTEND Family Medicine
DX: S20.221A Contusion of right back wall of thorax, initial encounter (principal); G89.29 Other chronic pain; F17.210 Nicotine dependence, cigarettes, uncomplicated; I48.0 Paroxysmal atrial fibrillation; E78.5 Hyperlipidemia, unspecified; J44.9 Chronic obstructive pulmonary disease, unspecified; E11.51 Type 2 diabetes mellitus with diabetic peripheral angiopathy without gangrene; G20 Parkinson's disease; F31.9 Bipolar disorder, unspecified; F20.9 Schizophrenia, unspecified; I11.0 Hypertensive heart disease with heart failure; I50.9 Heart failure, unspecified; Z87.442 Personal history of urinary calculi; Z95.0 Presence of cardiac pacemaker; Z90.710 Acquired absence of both cervix and uterus; W18.30XA Fall on same level, unspecified, initial encounter
CPT/HCPCS: 36415; 71260; 74177; 80048; 80053; 82948; 83036; 83605; 83880; 84484; 85025; 85027; 87040; 87081; 93005; 94640; 94760; 96365; 96372; 99284; G0378; J1815; Q9967; 99285

== ENCOUNTER 2019-01-07 21:23 | Emergency (ER) | payer MEDICARE, MEDICAID ==
[~2019-01-07] VITALS: Ht 157.5 cm; Wt 109.1 kg
[~2019-01-07 21:23] MED LIST changes: -APIX5TAB3 PO; +BACL10TA2 PO; -FURO-150 PO; +LEVO50TA8 PO; -METH4TAB81 PO; +NYST15OI14
[2019-01-07 21:29] VITALS: BP 116/72
--- NOTE | 2019-01-07 21:42 | NUR ---
PLACED ROLLED UP TOWEL UNDER RIGHT SIDE FOR COMFORT
[2019-01-07] MEDS ORDERED: HYDROcodone/acetaminophen 10/325mg tab PO ONE (23:05)
== END 2019-01-07 23:51 | disposition home or self-care (01) ==
LOC: ER 21:24
DX: S20.221A Contusion of right back wall of thorax, initial encounter (principal); S30.1XXA Contusion of abdominal wall, initial encounter; G20 Parkinson's disease; I48.91 Unspecified atrial fibrillation; I11.0 Hypertensive heart disease with heart failure; I50.9 Heart failure, unspecified; J43.9 Emphysema, unspecified; E11.9 Type 2 diabetes mellitus without complications; E07.9 Disorder of thyroid, unspecified; G89.29 Other chronic pain; F41.9 Anxiety disorder, unspecified; F31.9 Bipolar disorder, unspecified; F20.9 Schizophrenia, unspecified; Z90.49 Acquired absence of other specified parts of digestive tract; Z88.8 Allergy status to other drugs, medicaments and biological substances; Z88.1 Allergy status to other antibiotic agents; Z79.899 Other long term (current) drug therapy; Z86.73 Personal history of transient ischemic attack (TIA), and cerebral infarction without residual deficits; Z87.442 Personal history of urinary calculi; Z90.710 Acquired absence of both cervix and uterus; Z95.0 Presence of cardiac pacemaker; Z98.890 Other specified postprocedural states; Z56.0 Unemployment, unspecified; W18.39XA Other fall on same level, initial encounter; Y93.89 Activity, other specified; Y92.59 Other trade areas as the place of occurrence of the external cause; Y99.8 Other external cause status
CPT/HCPCS: 99284

== ENCOUNTER 2019-01-14 20:25 | Emergency (ER) | payer MEDICARE, MEDICAID ==
[~2019-01-14] VITALS: Ht 157.5 cm; Wt 109.0 kg
[2019-01-14 21:58] VITALS: BP 150/90
== END 2019-01-14 22:03 | disposition home or self-care (01) ==
LOC: ER 20:26
DX: S30.1XXD Contusion of abdominal wall, subsequent encounter (principal); S20.221D Contusion of right back wall of thorax, subsequent encounter; G20 Parkinson's disease; I48.91 Unspecified atrial fibrillation; I11.0 Hypertensive heart disease with heart failure; I50.9 Heart failure, unspecified; J43.9 Emphysema, unspecified; E11.9 Type 2 diabetes mellitus without complications; E07.9 Disorder of thyroid, unspecified; G89.29 Other chronic pain; F41.9 Anxiety disorder, unspecified; F31.9 Bipolar disorder, unspecified; F20.9 Schizophrenia, unspecified; Z90.49 Acquired absence of other specified parts of digestive tract; Z86.73 Personal history of transient ischemic attack (TIA), and cerebral infarction without residual deficits; Z87.442 Personal history of urinary calculi; Z90.710 Acquired absence of both cervix and uterus; Z95.0 Presence of cardiac pacemaker; Z98.890 Other specified postprocedural states; Z56.0 Unemployment, unspecified; X58.XXXD Exposure to other specified factors, subsequent encounter
CPT/HCPCS: 99283

== ENCOUNTER 2019-01-21 15:50 | Emergency (ER) | payer MEDICARE, MEDICAID ==
[~2019-01-21] VITALS: Ht 157.5 cm; Wt 109.1 kg
[2019-01-21 15:54] VITALS: BP 134/49
== END 2019-01-21 17:58 | disposition home or self-care (01) ==
LOC: ER 15:50
DX: S40.011D Contusion of right shoulder, subsequent encounter (principal); S70.01XD Contusion of right hip, subsequent encounter; E66.9 Obesity, unspecified; I48.91 Unspecified atrial fibrillation; I11.0 Hypertensive heart disease with heart failure; I50.9 Heart failure, unspecified; J44.9 Chronic obstructive pulmonary disease, unspecified; E11.9 Type 2 diabetes mellitus without complications; G89.29 Other chronic pain; Z56.0 Unemployment, unspecified; Z90.49 Acquired absence of other specified parts of digestive tract; Z90.710 Acquired absence of both cervix and uterus; Z98.890 Other specified postprocedural states; Z95.0 Presence of cardiac pacemaker; Z86.73 Personal history of transient ischemic attack (TIA), and cerebral infarction without residual deficits; Z91.018 Allergy to other foods; Z88.1 Allergy status to other antibiotic agents; Z88.8 Allergy status to other drugs, medicaments and biological substances; W19.XXXD Unspecified fall, subsequent encounter
CPT/HCPCS: 71045; 99283

== ENCOUNTER 2019-05-29 15:54 | Emergency (ER) | payer MEDICARE, MEDICAID ==
[~2019-05-29] VITALS: Ht 157.5 cm; Wt 118.2 kg
[~2019-05-29 15:54] MED LIST changes: -ALBU2.5V13 NEB; +ALBU8HFA PO; +APIX2.5T PO; +BACL10TA PO; -BACL10TA2 PO; +DIVA-76 PO; -DIVA500T9 PO; +FLUC150T66 PO; -FLUTICASONE; +FURO-150 PO; -FURO20TA4 PO; -IPRA3AMP31 IH; +MONT10TA24 PO; -MORP-92 PO; +MYCOL15CR TOP; +NITR0.4T51 SL; -NYST15OI14; +PRED5TAB PO; +ROPI1TAB4 PO; -ROPI2TAB4 PO
[2019-05-29] MEDS ORDERED: methylPREDNISolone sod succ 125mg/2ml vial IV ONE (16:00)
[2019-05-29] MEDS ORDERED: furosemide 40mg/4ml inj IV ONE (16:00)
[2019-05-29] MEDS ORDERED: ipratropium/albuterol 3ml nebule NEB ONE (16:00)
[2019-05-29 16:30] LABS: BASOPHILS # (AUTO) 0.2 X10'3 (0-0.2); BASOPHILS % (AUTO) 1.5 % (0-1); EOSINOPHILS % (AUTO) 0.2 % (0-6); HEMOGLOBIN 15.2 g/dl (12.0-16.0); LYMPHOCYTES # (AUTO) 2.2 X10'3 (1.1-4.8); LYMPHOCYTES % (AUTO) 18.9 % (21-51); MEAN CORPUSCULAR HEMOGLOBIN 31.4 PG (27.0-31.0); MEAN CORPUSCULAR HGB CONC 33.1 g/dL (33.0-36.5); MEAN PLATELET VOLUME 8.9 FL (7.4-10.4); MONOCYTES # (AUTO) 1.4 X10'3 (0-0.9); MONOCYTES % (AUTO) 11.9 % (2-12); NEUTROPHILS # (AUTO) 7.7 X10'3 (1.8-7.7); NEUTROPHILS % (AUTO) 67.5 % (42-75); PLATELET COUNT 168 X10'3 (140-440); RED BLOOD COUNT 4.84 X10'6 (4.20-5.60); RED CELL DISTRIBUTION WIDTH 16.7 % (11.5-14.5); WHITE BLOOD COUNT 11.4 X10'3 (4.5-11.0)
[2019-05-29 16:40] LABS: ABG BASE EXCESS 7.7 mmol/L (-2.0-3.0); ABG HCO3 34.6 mmol/L (22.0-26.0); ABG OXYGEN SATURATION 93.2 % (95-98); ABG PCO2 (T) 56.7 mmHg (35.0-45.0); ABG PH (T) 7.403 (7.350-7.450); ABG PO2 (T) 72.8 mmHg (83-108); ALLEN'S TEST Positive; FCOHb 2.8 % (0.5-1.5); FLOW 10 L/min; FMetHb 0.2 % (0.3-1.12); FO2Hb 90.4 % (94-100); RESPIRATORY RATE (OBSERVED) 22 b/min; TOTAL HEMOGLOBIN 15.5 G/dl (12.0-16.0)
[2019-05-29 16:45] LABS: TOTAL CELLS COUNTED 100
[2019-05-29 16:46] LABS: ANISOCYTOSIS 1+; PLATELET ESTIMATE NORMAL; POLYCHROMASIA FEW
[2019-05-29 16:53] LABS: ALANINE AMINOTRANSFERASE 25 U/L (12-78); ALBUMIN 3.3 G/DL (3.4-5.0); ALBUMIN/GLOBULIN RATIO 0.9 (1.1-1.5); ALKALINE PHOSPHATASE 58 IU/L (46-116); ANION GAP 3 (8-16); ASPARTATE AMINO TRANSFERASE 8 U/L (10-37); BILIRUBIN,TOTAL 0.3 MG/DL (0.1-1.0); BLOOD UREA NITROGEN 52 MG/DL (7-18); BUN/CREATININE RATIO 43.7 (6.6-38.0); CALCIUM 9.2 MG/DL (8.5-10.1); CHLORIDE 100 MMOL/L (99-107); CREATININE 1.19 MG/DL (0.40-0.90); GLUCOSE 265 MG/DL (70-104); POTASSIUM 4.3 MMOL/L (3.5-5.1); SODIUM 142 MMOL/L (135-145); TOTAL CARBON DIOXIDE 38.6 MMOL/L (24-32); TOTAL PROTEIN 6.8 G/DL (6.4-8.2); eGFR 45 ML/MIN
[2019-05-29 17:01] LABS: PARTIAL THROMBOPLASTIN TIME 20 SECONDS (22-32)
[2019-05-29 18:03] VITALS: BP 149/79
[2019-06-01] MEDS ORDERED: BUDE10.22 INH (11:58)
[2019-06-01] MEDS ORDERED: PRED10TA23 PO (11:58)
== END 2019-05-29 18:15 | disposition home or self-care (01) ==
LOC: ER 15:54
DX: J44.1 Chronic obstructive pulmonary disease with (acute) exacerbation (principal); F17.200 Nicotine dependence, unspecified, uncomplicated; E66.9 Obesity, unspecified; I48.91 Unspecified atrial fibrillation; E11.9 Type 2 diabetes mellitus without complications; G89.29 Other chronic pain; I11.0 Hypertensive heart disease with heart failure; I50.9 Heart failure, unspecified; Z56.0 Unemployment, unspecified; Z86.73 Personal history of transient ischemic attack (TIA), and cerebral infarction without residual deficits; Z90.49 Acquired absence of other specified parts of digestive tract; Z90.710 Acquired absence of both cervix and uterus; Z95.0 Presence of cardiac pacemaker; Z79.899 Other long term (current) drug therapy; Z91.018 Allergy to other foods; Z88.1 Allergy status to other antibiotic agents; Z88.8 Allergy status to other drugs, medicaments and biological substances
CPT/HCPCS: 36415; 36600; 71045; 80053; 82803; 83605; 83880; 84484; 85018; 85025; 85610; 85730; 87040; 93005; 94640; 96374; 96375; 99284; J1940; J2930

== ENCOUNTER 2019-08-12 13:49 | Emergency (ER) | payer MEDICARE, MEDICAID ==
[~2019-08-12] VITALS: Ht 157.5 cm; Wt 122.3 kg
[~2019-08-12 13:49] MED LIST changes: +BUDE10.22 INH; -FLUC150T66 PO; -MONT10TA24 PO; +MONT10TA26 PO; -PRED5TAB PO; -ROPI1TAB4 PO; +ROPI1TAB6 PO
[2019-08-12 14:15] LABS: BASOPHILS % (AUTO) 0.6 % (0-1); EOSINOPHILS # (AUTO) 0.1 X10'3 (0-0.9); EOSINOPHILS % (AUTO) 0.8 % (0-6); HEMATOCRIT 43.1 % (35.0-45.0); HEMOGLOBIN 14.1 g/dl (12.0-16.0); LYMPHOCYTES # (AUTO) 2.3 X10'3 (1.1-4.8); LYMPHOCYTES % (AUTO) 29.2 % (21-51); MEAN CORPUSCULAR HEMOGLOBIN 29.5 PG (27.0-31.0); MEAN CORPUSCULAR HGB CONC 32.7 g/dL (33.0-36.5); MEAN CORPUSCULAR VOLUME 90.2 FL (78-98); MEAN PLATELET VOLUME 8.6 FL (7.4-10.4); MONOCYTES # (AUTO) 0.6 X10'3 (0-0.9); MONOCYTES % (AUTO) 8.2 % (2-12); NEUTROPHILS # (AUTO) 4.8 X10'3 (1.8-7.7); NEUTROPHILS % (AUTO) 61.2 % (42-75); PLATELET COUNT 180 X10'3 (140-440); RED BLOOD COUNT 4.78 X10'6 (4.20-5.60); RED CELL DISTRIBUTION WIDTH 16.6 % (11.5-14.5); WHITE BLOOD COUNT 7.8 X10'3 (4.5-11.0)
[2019-08-12 14:27] LABS: ALANINE AMINOTRANSFERASE 16 U/L (12-78); ALBUMIN 3.1 G/DL (3.4-5.0); ALBUMIN/GLOBULIN RATIO 0.9 (1.1-1.5); ALKALINE PHOSPHATASE 49 IU/L (46-116); ANION GAP 2 (8-16); ASPARTATE AMINO TRANSFERASE 13 U/L (10-37); BILIRUBIN,TOTAL 0.3 MG/DL (0.1-1.0); BLOOD UREA NITROGEN 19 MG/DL (7-18); BUN/CREATININE RATIO 16.4 (6.6-38.0); CALCIUM 8.7 MG/DL (8.5-10.1); CHLORIDE 101 MMOL/L (99-107); CREATININE 1.16 MG/DL (0.40-0.90); GLUCOSE 107 MG/DL (70-104); POTASSIUM 3.4 MMOL/L (3.5-5.1); SODIUM 145 MMOL/L (135-145); TOTAL PROTEIN 6.7 G/DL (6.4-8.2); eGFR 47 ML/MIN
[2019-08-12] MEDS ORDERED: CIP750T PO (14:46)
--- NOTE | 2019-08-12 15:52 | NUR ---
PATIETN RESTING COMFORTABLY, IN NO APPARENT DISTRESS Addendum: 08/12/19 at 1628 by SILVIA WAITING ON 3 HR TROPONIN
[2019-08-12 18:56] VITALS: BP 143/69
== END 2019-08-12 18:55 | disposition home or self-care (01) ==
LOC: ER 13:50
DX: R07.89 Other chest pain (principal); R06.02 Shortness of breath; R05 Cough; G20 Parkinson's disease; I48.91 Unspecified atrial fibrillation; I50.9 Heart failure, unspecified; I11.0 Hypertensive heart disease with heart failure; J43.9 Emphysema, unspecified; E11.9 Type 2 diabetes mellitus without complications; G89.29 Other chronic pain; F41.9 Anxiety disorder, unspecified; F31.9 Bipolar disorder, unspecified; F20.9 Schizophrenia, unspecified; Z90.49 Acquired absence of other specified parts of digestive tract; Z90.710 Acquired absence of both cervix and uterus; Z95.0 Presence of cardiac pacemaker; Z98.890 Other specified postprocedural states; Z56.0 Unemployment, unspecified; Z88.1 Allergy status to other antibiotic agents; Z91.018 Allergy to other foods; Z88.8 Allergy status to other drugs, medicaments and biological substances; Z79.2 Long term (current) use of antibiotics; Z79.01 Long term (current) use of anticoagulants; Z79.899 Other long term (current) drug therapy
CPT/HCPCS: 36415; 71045; 80053; 83880; 84484; 85025; 93005; 99285

== ENCOUNTER 2019-09-01 18:21 | Emergency (ER) | payer MEDICARE, MEDICAID ==
[~2019-09-01] VITALS: Ht 157.5 cm; Wt 167.7 kg
[2019-09-01] MEDS ORDERED: normal saline 1000ML IV soln IV ONE (18:25)
[2019-09-01 18:59] LABS: BASOPHILS % (AUTO) 0.6 % (0-1); EOSINOPHILS # (AUTO) 0.1 X10'3 (0-0.9); LYMPHOCYTES # (AUTO) 1.7 X10'3 (1.1-4.8); LYMPHOCYTES % (AUTO) 30.1 % (21-51); MEAN CORPUSCULAR HEMOGLOBIN 28.8 PG (27.0-31.0); MEAN CORPUSCULAR HGB CONC 31.7 g/dL (33.0-36.5); MEAN CORPUSCULAR VOLUME 90.6 FL (78-98); MEAN PLATELET VOLUME 8.8 FL (7.4-10.4); MONOCYTES # (AUTO) 0.6 X10'3 (0-0.9); MONOCYTES % (AUTO) 10.1 % (2-12); NEUTROPHILS # (AUTO) 3.3 X10'3 (1.8-7.7); NEUTROPHILS % (AUTO) 57.2 % (42-75); PLATELET COUNT 151 X10'3 (140-440); RED BLOOD COUNT 4.52 X10'6 (4.20-5.60); RED CELL DISTRIBUTION WIDTH 17.4 % (11.5-14.5); WHITE BLOOD COUNT 5.8 X10'3 (4.5-11.0)
[2019-09-01 19:18] LABS: ALANINE AMINOTRANSFERASE 14 U/L (12-78); ALBUMIN 2.7 G/DL (3.4-5.0); ALBUMIN/GLOBULIN RATIO 0.8 (1.1-1.5); ALKALINE PHOSPHATASE 53 IU/L (46-116); ANION GAP 1 (8-16); ASPARTATE AMINO TRANSFERASE 11 U/L (10-37); BILIRUBIN,TOTAL 0.2 MG/DL (0.1-1.0); BLOOD UREA NITROGEN 20 MG/DL (7-18); BUN/CREATININE RATIO 17.2 (6.6-38.0); CALCIUM 9.2 MG/DL (8.5-10.1); CHLORIDE 103 MMOL/L (99-107); CREATININE 1.16 MG/DL (0.40-0.90); GLUCOSE 165 MG/DL (70-104); POTASSIUM 3.6 MMOL/L (3.5-5.1); SODIUM 143 MMOL/L (135-145); TOTAL CARBON DIOXIDE 39.3 MMOL/L (24-32); eGFR 47 ML/MIN
[2019-09-01] MEDS ORDERED: PRED20TA PO (19:43)
[2019-09-01] MEDS ORDERED: DOXY100C76 PO (19:43)
[2019-09-01] MEDS ORDERED: ALB0.5UD IH (19:43)
[2019-09-01] MEDS ORDERED: ALBU6.7H9 INH (19:43)
[2019-09-01] MEDS ORDERED: CefTRIAXone/D5W-Rocephin 1gm 50 ML IV ONE (19:45)
[2019-09-01 19:48] LABS: CLARITY,URINE CLEAR (Clear); COLOR,URINE YELLOW (Yellow); GLUCOSE, URINE NEGATIVE (Neg); KETONES,URINE NEGATIVE (Neg); LEUKOCYTE ESTERASE ,URINE NEGATIVE (Neg); NITRITES, URINE NEGATIVE (Neg); OCCULT BLOOD,URINE NEGATIVE (Neg); PROTEIN,URINE NEGATIVE (Neg); UROBILINOGEN,URINE 0.2 E.U/dL (0.2-1.0)
[2019-09-01 19:53] LABS: UA COLLECTION TYPE STRAIGHT CATH
--- NOTE | 2019-09-01 19:55 | NUR ---
PER ED PATRIA BARRIENTOS, ONLY ADMINSTER 1 LITER OF NORMAL SALINE, NOT THE ORDERED 3 LITERS. ORDER COMPLETED
[2019-09-01 20:15] VITALS: BP 135/89
== END 2019-09-01 20:43 | disposition home or self-care (01) ==
LOC: ER 18:21
DX: J44.0 Chronic obstructive pulmonary disease with (acute) lower respiratory infection (principal); J20.9 Acute bronchitis, unspecified; E66.9 Obesity, unspecified; I48.91 Unspecified atrial fibrillation; I11.0 Hypertensive heart disease with heart failure; I50.9 Heart failure, unspecified; E11.9 Type 2 diabetes mellitus without complications; G89.29 Other chronic pain; F17.200 Nicotine dependence, unspecified, uncomplicated; Z90.49 Acquired absence of other specified parts of digestive tract; Z90.710 Acquired absence of both cervix and uterus; Z95.0 Presence of cardiac pacemaker; Z98.890 Other specified postprocedural states; Z79.899 Other long term (current) drug therapy; Z56.0 Unemployment, unspecified; Z86.73 Personal history of transient ischemic attack (TIA), and cerebral infarction without residual deficits; Z91.018 Allergy to other foods; Z88.1 Allergy status to other antibiotic agents; Z88.8 Allergy status to other drugs, medicaments and biological substances
CPT/HCPCS: 36415; 71045; 80053; 81003; 83605; 83880; 84145; 85025; 87040; 93005; 96365; 99285; J0696; J7030

== ENCOUNTER 2019-10-25 15:55 | Emergency (ER) | payer MEDICARE, MEDICAID ==
[~2019-10-25] VITALS: Ht 157.5 cm; Wt 120.0 kg
[~2019-10-25 15:55] MED LIST changes: +ALBU6.7H9 INH; -BUDE10.22 INH; +FURO-149 PO; -FURO-150 PO; +GABA-530 PO; +HUM7525 SQ; +HYDR-3972 PO; +INSU100I31 SUBCUT; +LORAZEPAM PO; -MYCOL15CR TOP; -ROPI1TAB6 PO; +ROPI3TAB4 PO
[2019-10-25] MEDS ORDERED: albuterol 2.5 MG/3 ML nebule NEB ONE (16:45)
[2019-10-25 17:35] LABS: ABG BASE EXCESS 11.7 mmol/L (-2.0-3.0); ABG OXYGEN SATURATION 91.7 % (95-98); ABG PCO2 (T) 58.8 mmHg (35.0-45.0); ABG PH (T) 7.428 (7.350-7.450); ABG PO2 (T) 65.7 mmHg (83-108); FCOHb 6.2 % (0.5-1.5); TOTAL HEMOGLOBIN 11.1 G/dl (12.0-16.0)
[2019-10-25] MEDS ORDERED: methylPREDNISolone sod succ 125mg/2ml vial IV ONE (17:45)
[2019-10-25] MEDS ORDERED: dexamethasone sod phosphate 10mg/ml inj IM STA (18:03)
[2019-10-25 18:26] LABS: BASOPHILS % (AUTO) 0.5 % (0-1); EOSINOPHILS # (AUTO) 0.2 X10'3 (0-0.9); HEMOGLOBIN 10.3 g/dl (12.0-16.0); NEUTROPHILS # (AUTO) 3.2 X10'3 (1.8-7.7); PLATELET COUNT 143 X10'3 (140-440); WHITE BLOOD COUNT 5.6 X10'3 (4.5-11.0)
[2019-10-25 18:27] LABS: HEMATOCRIT 31.7 % (35.0-45.0); LYMPHOCYTES # (AUTO) 1.4 X10'3 (1.1-4.8); LYMPHOCYTES % (AUTO) 24.6 % (21-51); MEAN CORPUSCULAR HEMOGLOBIN 29.1 PG (27.0-31.0); MEAN CORPUSCULAR HGB CONC 32.5 g/dL (33.0-36.5); MEAN CORPUSCULAR VOLUME 89.5 FL (78-98); MEAN PLATELET VOLUME 7.4 FL (7.4-10.4); MONOCYTES # (AUTO) 0.8 X10'3 (0-0.9); MONOCYTES % (AUTO) 14.3 % (2-12); NEUTROPHILS % (AUTO) 56.6 % (42-75); RED BLOOD COUNT 3.54 X10'6 (4.20-5.60); RED CELL DISTRIBUTION WIDTH 18.5 % (11.5-14.5)
[2019-10-25 18:50] LABS: NUCLEATED RED BLOOD CELLS 4 /100WBC (0-0); TOTAL CELLS COUNTED 100
[2019-10-25 18:51] LABS: ANISOCYTOSIS 2+; PLATELET ESTIMATE NORMAL; POLYCHROMASIA 1+
[2019-10-25 18:52] LABS: ALANINE AMINOTRANSFERASE 20 U/L (12-78); ALBUMIN 2.8 G/DL (3.4-5.0); ALBUMIN/GLOBULIN RATIO 0.8 (1.1-1.5); ALKALINE PHOSPHATASE 78 IU/L (46-116); ANION GAP 0 (8-16); ASPARTATE AMINO TRANSFERASE 22 U/L (10-37); BILIRUBIN,TOTAL 0.4 MG/DL (0.1-1.0); BLOOD UREA NITROGEN 21 MG/DL (7-18); BUN/CREATININE RATIO 17.4 (6.6-38.0); CALCIUM 8.3 MG/DL (8.5-10.1); CHLORIDE 102 MMOL/L (99-107); CREATININE 1.21 MG/DL (0.40-0.90); GLUCOSE 101 MG/DL (70-104); POTASSIUM 3.5 MMOL/L (3.5-5.1); SODIUM 143 MMOL/L (135-145); TOTAL PROTEIN 6.1 G/DL (6.4-8.2); eGFR 44 ML/MIN
[2019-10-25 18:53] LABS: STOMATOCYTES FEW
[2019-10-25 19:01] LABS: TOTAL CARBON DIOXIDE 41.2 MMOL/L (24-32)
[2019-10-25 19:30] VITALS: BP 106/80
--- NOTE | 2019-10-25 19:38 | NUR ---
PATIENT IN BED EYES CLOSED LYING FLAT RR EVEN UN LABORED NO OBSERVABLE S/S OF ACUTE STRESS AT THIS TIME WILL CONTINUE TO MONITOR
--- NOTE | 2019-10-25 19:47 | NUR ---
PATIENT REQUESTED [facility] CALLED AND LEFT MESSAGE, [phone], PATIENT VERBALIZED THEY WILL USE [facility] IF [facility] IS UN AVAILABLE [facility] #[phone]
--- NOTE | 2019-10-25 19:52 | NUR ---
[facility] STATED WE DO NOT SERVICE PATIENTS ADDRESS [id number] [place]
--- NOTE | 2019-10-25 20:13 | NUR ---
PATIENT VERBALIZED SHE IS ABLE TO AMBULATE W/O ASSIST FROM TAXI TO FRONT DOOR OF HOUSE WITH OUT WHEEL CHAIR OR NASAL CANNULA LONG WE HELP PATIENT GET IN THE TAXI CN AWARE AND APPROVES OF DISCHARGE PATIENT IS AOX4 TO MAKE COGNITIVE DESICIONS
--- NOTE | 2019-10-25 20:15 | NUR ---
[facility] CALLED BACK AND VERBALIZED UNLESS IT IS A CONTRACTED SKILLED FACILITY THEY DO NOT TRANSPORT AFTER HOURS CN AWARE
== END 2019-10-25 20:44 | disposition home or self-care (01) ==
LOC: ER 15:56
DX: J44.9 Chronic obstructive pulmonary disease, unspecified (principal); G20 Parkinson's disease; I48.91 Unspecified atrial fibrillation; I50.9 Heart failure, unspecified; I11.0 Hypertensive heart disease with heart failure; E11.9 Type 2 diabetes mellitus without complications; G89.29 Other chronic pain; F41.9 Anxiety disorder, unspecified; F31.9 Bipolar disorder, unspecified; F20.9 Schizophrenia, unspecified; Z86.69 Personal history of other diseases of the nervous system and sense organs; Z86.73 Personal history of transient ischemic attack (TIA), and cerebral infarction without residual deficits; Z90.49 Acquired absence of other specified parts of digestive tract; Z90.710 Acquired absence of both cervix and uterus; Z98.890 Other specified postprocedural states; Z95.0 Presence of cardiac pacemaker; Z56.0 Unemployment, unspecified; Z79.2 Long term (current) use of antibiotics; Z91.018 Allergy to other foods; Z88.8 Allergy status to other drugs, medicaments and biological substances; Z79.4 Long term (current) use of insulin; Z79.899 Other long term (current) drug therapy; Z79.01 Long term (current) use of anticoagulants
CPT/HCPCS: 36415; 36600; 71045; 80053; 82803; 83880; 85018; 85025; 93005; 94640; 96372; 99285; J1100; 94760

== ENCOUNTER 2019-11-29 16:05 | Emergency (ER) | payer MEDICARE, MEDICAID ==
[~2019-11-29] VITALS: Ht 157.5 cm; Wt 108.8 kg
[~2019-11-29 16:05] MED LIST changes: -ALBU8HFA PO; +BUDE10.22 INH; +CEFD300C3 PO; -FURO-149 PO; +FURO-150 PO; +LACT1CAP26 PO; +PRED10TA23 PO
[2019-11-29 16:15] VITALS: BP 139/43
== END 2019-11-29 18:31 | disposition home or self-care (01) ==
LOC: ER 16:06
DX: S90.32XA Contusion of left foot, initial encounter (principal); G20 Parkinson's disease; I48.91 Unspecified atrial fibrillation; I50.9 Heart failure, unspecified; I11.0 Hypertensive heart disease with heart failure; J43.9 Emphysema, unspecified; E11.9 Type 2 diabetes mellitus without complications; G89.29 Other chronic pain; F31.9 Bipolar disorder, unspecified; F20.9 Schizophrenia, unspecified; Z90.49 Acquired absence of other specified parts of digestive tract; Z90.710 Acquired absence of both cervix and uterus; Z98.890 Other specified postprocedural states; Z56.0 Unemployment, unspecified; Z95.0 Presence of cardiac pacemaker; Z79.2 Long term (current) use of antibiotics; Z79.899 Other long term (current) drug therapy; Z79.01 Long term (current) use of anticoagulants; Z79.4 Long term (current) use of insulin; Z86.73 Personal history of transient ischemic attack (TIA), and cerebral infarction without residual deficits; Z86.69 Personal history of other diseases of the nervous system and sense organs; X58.XXXA Exposure to other specified factors, initial encounter; Y93.89 Activity, other specified; Y92.89 Other specified places as the place of occurrence of the external cause; Y99.8 Other external cause status
CPT/HCPCS: 73630; 99284

== ENCOUNTER 2019-12-19 17:58 | Emergency (ER) | payer MEDICARE, MEDICAID ==
[~2019-12-19] VITALS: Ht 157.5 cm; Wt 113.6 kg
[2019-12-19 19:10] VITALS: BP 148/58
== END 2019-12-19 19:18 | disposition home or self-care (01) ==
LOC: ER 17:58
DX: S46.812A Strain of other muscles, fascia and tendons at shoulder and upper arm level, left arm, initial encounter (principal); M25.512 Pain in left shoulder; R06.2 Wheezing; I48.91 Unspecified atrial fibrillation; I11.0 Hypertensive heart disease with heart failure; I50.9 Heart failure, unspecified; J44.9 Chronic obstructive pulmonary disease, unspecified; E11.9 Type 2 diabetes mellitus without complications; G89.29 Other chronic pain; F41.9 Anxiety disorder, unspecified; F31.9 Bipolar disorder, unspecified; F20.9 Schizophrenia, unspecified; F17.200 Nicotine dependence, unspecified, uncomplicated; Z86.73 Personal history of transient ischemic attack (TIA), and cerebral infarction without residual deficits; Z86.69 Personal history of other diseases of the nervous system and sense organs; Z87.442 Personal history of urinary calculi; Z90.89 Acquired absence of other organs; Z90.49 Acquired absence of other specified parts of digestive tract; Z90.710 Acquired absence of both cervix and uterus; Z95.0 Presence of cardiac pacemaker; Z98.890 Other specified postprocedural states; Z56.0 Unemployment, unspecified; Z88.8 Allergy status to other drugs, medicaments and biological substances; Z88.1 Allergy status to other antibiotic agents; Z79.2 Long term (current) use of antibiotics; Z79.899 Other long term (current) drug therapy; Z79.4 Long term (current) use of insulin; W19.XXXA Unspecified fall, initial encounter; Y93.89 Activity, other specified; Y92.89 Other specified places as the place of occurrence of the external cause; Y99.8 Other external cause status
CPT/HCPCS: 73030; 99284

== ENCOUNTER 2020-01-02 05:26 | Emergency (ER) | payer MEDICARE, MEDICAID ==
[~2020-01-02] VITALS: Ht 157.5 cm; Wt 113.6 kg
[~2020-01-02 05:26] MED LIST changes: -CEFD300C3 PO; -FURO-150 PO; -PRED10TA23 PO
[2020-01-02] MEDS ORDERED: NOVLG (05:44)
[2020-01-02] MEDS ORDERED: ATOR40TA72 PO (05:44)
[2020-01-02] MEDS ORDERED: DIVA500T9 PO (05:44)
[2020-01-02] MEDS ORDERED: FURO40TA4 PO (05:44)
[2020-01-02] MEDS ORDERED: FLEC100T35 PO (05:44)
[2020-01-02 06:09] VITALS: BP 115/43
--- NOTE | 2020-01-02 06:16 | NUR ---
Pt reports increased stress associated with caregiving responsivbilities of roommate/so Tim who has demential. Pt reports Jose Elias's dementia is "making him more violent." Pt is overwhelmed AEB bouts of tearfulness when explaining why she is here. Pt affirms intermittant thoughts of suicide "when it gets too much." Pt reports she has attempted suicide in the past via OD of thorazine. Pt denies audio/visual hallucinations @ this time. Pt is cooperative and apropriate with staff. Real Estate Office Supervisor consult to be sought.
[2020-01-02 06:28] LABS: BASOPHILS # (AUTO) 0.1 X10'3 (0-0.2); BASOPHILS % (AUTO) 1.1 % (0-1); EOSINOPHILS # (AUTO) 0.1 X10'3 (0-0.9); EOSINOPHILS % (AUTO) 1.5 % (0-6); HEMATOCRIT 38.8 % (35.0-45.0); LYMPHOCYTES # (AUTO) 1.5 X10'3 (1.1-4.8); LYMPHOCYTES % (AUTO) 22.6 % (21-51); MEAN CORPUSCULAR HEMOGLOBIN 25.7 PG (27.0-31.0); MEAN CORPUSCULAR HGB CONC 31.1 g/dL (33.0-36.5); MEAN CORPUSCULAR VOLUME 82.8 FL (78-98); MEAN PLATELET VOLUME 8.9 FL (7.4-10.4); MONOCYTES # (AUTO) 0.7 X10'3 (0-0.9); NEUTROPHILS # (AUTO) 4.1 X10'3 (1.8-7.7); NEUTROPHILS % (AUTO) 63.8 % (42-75); PLATELET COUNT 159 X10'3 (140-440); RED BLOOD COUNT 4.68 X10'6 (4.20-5.60); RED CELL DISTRIBUTION WIDTH 21.5 % (11.5-14.5); WHITE BLOOD COUNT 6.5 X10'3 (4.5-11.0)
[2020-01-02 06:37] LABS: CLARITY,URINE CLOUDY (Clear); COLOR,URINE YELLOW (Yellow); GLUCOSE, URINE NEGATIVE (Neg); KETONES,URINE NEGATIVE (Neg); LEUKOCYTE ESTERASE ,URINE LARGE (Neg); NITRITES, URINE POSITIVE (Neg); OCCULT BLOOD,URINE SMALL (Neg); PH,URINE 7.5 (4.8-8.0); PROTEIN,URINE 30 mg/dl (Neg)
[2020-01-02 06:41] LABS: UA COLLECTION TYPE CLN CATCH MIDSTREAM
[2020-01-02 06:45] LABS: ALANINE AMINOTRANSFERASE 14 U/L (12-78); ALBUMIN 2.8 G/DL (3.4-5.0); ALBUMIN/GLOBULIN RATIO 0.8 (1.1-1.5); ALKALINE PHOSPHATASE 55 IU/L (46-116); ANION GAP 1 (8-16); ASPARTATE AMINO TRANSFERASE 14 U/L (10-37); BILIRUBIN,TOTAL 0.3 MG/DL (0.1-1.0); BLOOD UREA NITROGEN 23 MG/DL (7-18); CALCIUM 9.4 MG/DL (8.5-10.1); CHLORIDE 102 MMOL/L (99-107); CREATININE 1.21 MG/DL (0.40-0.90); GLUCOSE 147 MG/DL (70-104); SODIUM 144 MMOL/L (135-145); TOTAL PROTEIN 6.2 G/DL (6.4-8.2); eGFR 44 ML/MIN
[2020-01-02 06:45] LABS: URINE AMPHETAMINE SCREEN NEGATIVE (Neg); URINE BARBITUATE SCREEN NEGATIVE (Neg); URINE BENZODIAZEPINES SCREEN NEGATIVE (Neg); URINE CANNABINOID SCREEN NEGATIVE (Neg); URINE COCAINE SCREEN NEGATIVE (Neg); URINE METHADONE SCREEN NEGATIVE (Neg); URINE OPIATE SCREEN POSITIVE (Neg); URINE PHENCYCLIDINE SCREEN NEGATIVE (Neg)
[2020-01-02 06:48] LABS: BACTERIA,URINE 4+ /HPF (Neg); MUCUS STRANDS NONE SEEN /LPF (Neg); SQUAMOUS EPITHELIAL CELL,UR FEW /LPF (FEW); WBC CLUMPS,URINE MODERATE /HPF (NEGATIVE); WBC,URINE TNTC /HPF (0-4)
[2020-01-02 06:56] LABS: ETHANOL < 0.010 GM/DL (0.0-0.010)
[2020-01-02 06:57] LABS: TOTAL CARBON DIOXIDE 41.4 MMOL/L (24-32)
--- NOTE | 2020-01-02 07:03 | NUR ---
Affirmed w/ mckenna Mitchell, ua culture needed for this pt based on UA results; order placed.
[2020-01-02 07:14] LABS: ANISOCYTOSIS 3+; PLATELET ESTIMATE NORMAL; POLYCHROMASIA 1+
[2020-01-02] MEDS ORDERED: CEPH500C5 PO (07:35)
[2020-01-02] MEDS ORDERED: cephalexin 250mg capsule PO ONE (08:00)
--- NOTE | 2020-01-02 08:27 | NUR ---
back from br via wheelchair on 2 l/min nc, tolerated well. voided clear yellow and 2 small well formed bm.
--- NOTE | 2020-01-02 09:18 | NUR ---
Pt provided phone; staff line of sight while in use.
[2020-01-02] MEDS ORDERED: nicotine 21mg patch - 24 hr TD ONE (11:00)
--- NOTE | 2020-01-02 11:00 | NUR ---
Discussed pt's need for nicotine patch w/ edmd Mitchell;new order received.
--- NOTE | 2020-01-02 11:07 | NUR ---
Pt transferred from ED7 to OF25 via WC by PCT Dustin. All belongings accompanied pt.
[2020-01-02] MEDS ORDERED: ROPINIRole 1mg tablet PO SCH (13:00)
[2020-01-02] MEDS ORDERED: furosemide 40mg tablet PO SCH (20:00)
[2020-01-02] MEDS ORDERED: divalproex sod 250mg ER (24-hour) tablet PO SCH (20:00)
[2020-01-02] MEDS ORDERED: flecainide 50mg tablet PO SCH (20:00)
[2020-01-03] MEDS ORDERED: levoTHYROXINE 25mcg tablet PO SCH (08:00)
[2020-01-03] MEDS ORDERED: atorvastatin 20mg tablet PO SCH (08:00)
== END 2020-01-02 14:05 | disposition home or self-care (01) ==
LOC: ER 05:26
DX: R45.851 Suicidal ideations (principal); N39.0 Urinary tract infection, site not specified; G20 Parkinson's disease; I48.91 Unspecified atrial fibrillation; I50.9 Heart failure, unspecified; I11.0 Hypertensive heart disease with heart failure; J43.9 Emphysema, unspecified; E11.9 Type 2 diabetes mellitus without complications; G89.29 Other chronic pain; F31.9 Bipolar disorder, unspecified; F41.9 Anxiety disorder, unspecified; F20.9 Schizophrenia, unspecified; Z86.73 Personal history of transient ischemic attack (TIA), and cerebral infarction without residual deficits; Z90.49 Acquired absence of other specified parts of digestive tract; Z90.710 Acquired absence of both cervix and uterus; Z98.890 Other specified postprocedural states; Z88.8 Allergy status to other drugs, medicaments and biological substances; Z79.2 Long term (current) use of antibiotics; Z79.899 Other long term (current) drug therapy
CPT/HCPCS: 36415; 71046; 80053; 80305; 80320; 81001; 84443; 85025; 87077; 87088; 87186; 99285

== ENCOUNTER 2020-01-04 18:00 | Emergency (ER) | payer MEDICARE, MEDICAID ==
[~2020-01-04] VITALS: Ht 157.5 cm; Wt 115.9 kg
[~2020-01-04 18:00] MED LIST changes: -ALBU6.7H9 INH; -AMIT-189 PO; -APIX2.5T PO; -ATOR40TA PO; +ATOR40TA72 PO; -BACL10TA PO; -BUDE10.22 INH; +CEPH500C5 PO; -DIVA-76 PO; +DIVA500T9 PO; -FLEC100T2 PO; +FLEC100T35 PO; +FURO40TA4 PO; -GABA-530 PO; -HUM7525 SQ; -HYDR-3972 PO; -INSU100I31 SUBCUT; -LACT1CAP26 PO; -LORAZEPAM PO; -MONT10TA26 PO; -NITR0.4T51 SL; +NOVLG
[2020-01-04 18:12] VITALS: BP 138/66
[2020-01-04] MEDS ORDERED: LORazepam 1 MG tablet PO ONE (19:55)
== END 2020-01-04 20:19 | disposition home or self-care (01) ==
LOC: ER 18:03
DX: F32.9 Major depressive disorder, single episode, unspecified (principal); R44.0 Auditory hallucinations; R44.1 Visual hallucinations; F41.9 Anxiety disorder, unspecified; I48.91 Unspecified atrial fibrillation; I11.0 Hypertensive heart disease with heart failure; I50.9 Heart failure, unspecified; J44.9 Chronic obstructive pulmonary disease, unspecified; E11.9 Type 2 diabetes mellitus without complications; G89.29 Other chronic pain; Z87.442 Personal history of urinary calculi; Z86.73 Personal history of transient ischemic attack (TIA), and cerebral infarction without residual deficits; Z86.69 Personal history of other diseases of the nervous system and sense organs; Z90.89 Acquired absence of other organs; Z90.49 Acquired absence of other specified parts of digestive tract; Z90.710 Acquired absence of both cervix and uterus; Z95.0 Presence of cardiac pacemaker; Z98.890 Other specified postprocedural states; Z56.0 Unemployment, unspecified; Z91.018 Allergy to other foods; Z88.1 Allergy status to other antibiotic agents; Z88.8 Allergy status to other drugs, medicaments and biological substances; Z79.2 Long term (current) use of antibiotics; Z79.899 Other long term (current) drug therapy
CPT/HCPCS: 99283

== ENCOUNTER 2020-02-16 17:52 | Emergency (ER) | payer MEDICARE, MEDICAID ==
[~2020-02-16] VITALS: Ht 157.5 cm; Wt 110.0 kg
[2020-02-16 18:53] LABS: BASOPHILS % (AUTO) 0.7 % (0-1); EOSINOPHILS # (AUTO) 0.2 X10'3 (0-0.9); EOSINOPHILS % (AUTO) 2.8 % (0-6); HEMATOCRIT 39.3 % (35.0-45.0); HEMOGLOBIN 12.4 g/dl (12.0-16.0); LYMPHOCYTES # (AUTO) 1.5 X10'3 (1.1-4.8); MEAN CORPUSCULAR HEMOGLOBIN 26.5 PG (27.0-31.0); MEAN CORPUSCULAR HGB CONC 31.6 g/dL (33.0-36.5); MEAN CORPUSCULAR VOLUME 83.7 FL (78-98); MEAN PLATELET VOLUME 8.4 FL (7.4-10.4); MONOCYTES # (AUTO) 0.6 X10'3 (0-0.9); NEUTROPHILS # (AUTO) 3.3 X10'3 (1.8-7.7); NEUTROPHILS % (AUTO) 58.5 % (42-75); PLATELET COUNT 170 X10'3 (140-440); RED BLOOD COUNT 4.69 X10'6 (4.20-5.60); RED CELL DISTRIBUTION WIDTH 20.7 % (11.5-14.5); WHITE BLOOD COUNT 5.7 X10'3 (4.5-11.0)
[2020-02-16] MEDS ORDERED: azithromycin/NS 500mg/250ml 250 ML IV ONE (19:05)
[2020-02-16] MEDS ORDERED: methylPREDNISolone sod succ 125mg/2ml vial IV ONE (19:05)
[2020-02-16] MEDS ORDERED: magnesium 2GM in 50ml NS 50 ML IV ONE (19:05)
[2020-02-16] MEDS ORDERED: albuterol 2.5 MG/3 ML nebule CONTNEB PRN (19:05)
[2020-02-16 19:14] LABS: ALANINE AMINOTRANSFERASE 13 U/L (12-78); ALBUMIN 2.7 G/DL (3.4-5.0); ALBUMIN/GLOBULIN RATIO 0.8 (1.1-1.5); ALKALINE PHOSPHATASE 62 IU/L (46-116); ANION GAP -1 (8-16); ASPARTATE AMINO TRANSFERASE 15 U/L (10-37); BILIRUBIN,TOTAL 0.2 MG/DL (0.1-1.0); BLOOD UREA NITROGEN 24 MG/DL (7-18); BUN/CREATININE RATIO 17.6 (6.6-38.0); CALCIUM 9.2 MG/DL (8.5-10.1); CHLORIDE 98 MMOL/L (99-107); CREATININE 1.36 MG/DL (0.40-0.90); GLUCOSE 276 MG/DL (70-104); POTASSIUM 3.6 MMOL/L (3.5-5.1); SODIUM 139 MMOL/L (135-145); TOTAL PROTEIN 6.2 G/DL (6.4-8.2); eGFR 39 ML/MIN
[2020-02-16 19:40] LABS: ABG BASE EXCESS 14.8 mmol/L (-2.0-2.0); ABG HCO3 42.3 mmol/L (22.0-26.0); ABG OXYGEN SATURATION 85.7 % (94-97); ABG PCO2 (T) 65.3 mmHg (32.0-45.0); ABG PO2 (T) 49.9 mmHg (75.0-100.0); ALLEN'S TEST POSITIVE; FCOHb 7.4 % (0.0-3.9); FMetHb 0.1 % (0.0-1.5); FO2Hb 79.3 % (94-97); PATIENT TEMPERATURE 36.5; TOTAL HEMOGLOBIN 12.7 G/dl (12.0-16.0)
[2020-02-16] MEDS ORDERED: PRED20TA PO (21:30)
[2020-02-16] MEDS ORDERED: DOXY100C2 PO (21:30)
--- NOTE | 2020-02-16 21:52 | NUR ---
ATTEMPTED TO CALL PATIENT'S [facility] WORKER, "HARRISON" [phone]. NO ANSWER AND UNABLE TO LEAVE MESSAGE, BOX IS FULL
[2020-02-16 22:25] VITALS: BP 134/79
[2020-02-16 23:37] LABS: ANISOCYTOSIS 3+; PLATELET ESTIMATE NORMAL; POLYCHROMASIA 1+
[2020-02-16 23:38] LABS: STOMATOCYTES 1+
[2020-02-16 23:39] LABS: ELLIPTOCYTES 1+
== END 2020-02-16 22:31 | disposition home or self-care (01) ==
LOC: ER 17:53
DX: J44.1 Chronic obstructive pulmonary disease with (acute) exacerbation (principal); R05 Cough; R07.89 Other chest pain; I48.91 Unspecified atrial fibrillation; I11.0 Hypertensive heart disease with heart failure; I50.9 Heart failure, unspecified; E11.9 Type 2 diabetes mellitus without complications; G89.29 Other chronic pain; F41.9 Anxiety disorder, unspecified; F31.9 Bipolar disorder, unspecified; F20.9 Schizophrenia, unspecified; F17.200 Nicotine dependence, unspecified, uncomplicated; Z86.73 Personal history of transient ischemic attack (TIA), and cerebral infarction without residual deficits; Z86.69 Personal history of other diseases of the nervous system and sense organs; Z87.442 Personal history of urinary calculi; Z90.89 Acquired absence of other organs; Z90.49 Acquired absence of other specified parts of digestive tract; Z90.710 Acquired absence of both cervix and uterus; Z95.0 Presence of cardiac pacemaker; Z98.890 Other specified postprocedural states; Z56.0 Unemployment, unspecified; Z88.1 Allergy status to other antibiotic agents; Z88.8 Allergy status to other drugs, medicaments and biological substances; Z79.2 Long term (current) use of antibiotics; Z79.899 Other long term (current) drug therapy
CPT/HCPCS: 36415; 36600; 71045; 80053; 82803; 83880; 84484; 85008; 85018; 85025; 93005; 94644; 96365; 96366; 96368; 96375; 99285; J0456; J2930; J3475; 94640

== ENCOUNTER 2020-02-27 17:22 | Emergency (ER) | payer MEDICARE, MEDICAID ==
[~2020-02-27] VITALS: Ht 157.5 cm; Wt 111.8 kg
[2020-02-27 17:41] VITALS: BP 121/79
== END 2020-02-27 21:57 | disposition home or self-care (01) ==
LOC: ER 17:23
DX: L89.90 Pressure ulcer of unspecified site, unspecified stage (principal); G47.30 Sleep apnea, unspecified; R20.8 Other disturbances of skin sensation; G20 Parkinson's disease; I48.91 Unspecified atrial fibrillation; I50.9 Heart failure, unspecified; I11.0 Hypertensive heart disease with heart failure; J44.9 Chronic obstructive pulmonary disease, unspecified; E11.9 Type 2 diabetes mellitus without complications; G89.29 Other chronic pain; F41.9 Anxiety disorder, unspecified; F31.9 Bipolar disorder, unspecified; F20.9 Schizophrenia, unspecified; Z86.73 Personal history of transient ischemic attack (TIA), and cerebral infarction without residual deficits; Z86.69 Personal history of other diseases of the nervous system and sense organs; Z90.49 Acquired absence of other specified parts of digestive tract; Z90.710 Acquired absence of both cervix and uterus; Z79.2 Long term (current) use of antibiotics; Z88.8 Allergy status to other drugs, medicaments and biological substances; Z79.899 Other long term (current) drug therapy
CPT/HCPCS: 99283

== ENCOUNTER 2020-03-01 22:28 | Observation (INO) | payer MEDICARE, MEDICAID ==
[~2020-03-01] VITALS: Ht 157.5 cm; Wt 120.0 kg
[2020-03-01 22:51] LABS: BASOPHILS # (AUTO) 0.1 X10'3 (0-0.2); BASOPHILS % (AUTO) 1.3 % (0-1); EOSINOPHILS # (AUTO) 0.1 X10'3 (0-0.9); EOSINOPHILS % (AUTO) 2.1 % (0-6); HEMATOCRIT 36.6 % (35.0-45.0); HEMOGLOBIN 11.6 g/dl (12.0-16.0); LYMPHOCYTES # (AUTO) 1.6 X10'3 (1.1-4.8); LYMPHOCYTES % (AUTO) 24.6 % (21-51); MEAN CORPUSCULAR HEMOGLOBIN 26.6 PG (27.0-31.0); MEAN CORPUSCULAR HGB CONC 31.7 g/dL (33.0-36.5); MEAN PLATELET VOLUME 8.4 FL (7.4-10.4); MONOCYTES # (AUTO) 0.5 X10'3 (0-0.9); MONOCYTES % (AUTO) 8.5 % (2-12); NEUTROPHILS # (AUTO) 4.1 X10'3 (1.8-7.7); NEUTROPHILS % (AUTO) 63.5 % (42-75); PLATELET COUNT 145 X10'3 (140-440); RED BLOOD COUNT 4.35 X10'6 (4.20-5.60); RED CELL DISTRIBUTION WIDTH 19.8 % (11.5-14.5); WHITE BLOOD COUNT 6.4 X10'3 (4.5-11.0)
[2020-03-01 23:03] LABS: ALANINE AMINOTRANSFERASE 18 U/L (12-78); ALBUMIN 2.7 G/DL (3.4-5.0); ALBUMIN/GLOBULIN RATIO 0.8 (1.1-1.5); ALKALINE PHOSPHATASE 65 IU/L (46-116); ANION GAP 1 (8-16); ASPARTATE AMINO TRANSFERASE 7 U/L (10-37); BILIRUBIN,TOTAL 0.2 MG/DL (0.1-1.0); BLOOD UREA NITROGEN 20 MG/DL (7-18); BUN/CREATININE RATIO 17.2 (6.6-38.0); CALCIUM 8.8 MG/DL (8.5-10.1); CHLORIDE 100 MMOL/L (99-107); CREATININE 1.16 MG/DL (0.40-0.90); GLUCOSE 94 MG/DL (70-104); SODIUM 140 MMOL/L (135-145); TOTAL CARBON DIOXIDE 39.2 MMOL/L (24-32); TOTAL PROTEIN 5.9 G/DL (6.4-8.2); eGFR 46 ML/MIN
[2020-03-01 23:46] LABS: VALPROATE 84 UG/ML (50-100)
[2020-03-02] MEDS ORDERED: GABA-530 PO (00:15)
[2020-03-02] MEDS ORDERED: BACL10TA2 PO (00:15)
[2020-03-02] MEDS ORDERED: APIX2.5T PO (00:15)
[2020-03-02] MEDS ORDERED: PRED20TA PO ×2 (00:15→12:25)
[2020-03-02] MEDS ORDERED: AMIT-189 PO (00:15)
[2020-03-02] MEDS ORDERED: MONT10TA21 PO (00:15)
[2020-03-02] MEDS ORDERED: HYDR-3972 PO (00:15)
[2020-03-02] MEDS ORDERED: magnesium Cl slow-release 64mg tablet PO PRN (00:25)
[2020-03-02] MEDS ORDERED: ondansetron/PF 4mg/2ml inj IV PRN (00:25)
[2020-03-02] MEDS ORDERED: potassium CL 10mEq/100ml bag 100 ML IV PRN ×2 (00:25)
[2020-03-02] MEDS ORDERED: morphine 2 MG/ML inj. syringe IV PRN (00:25)
[2020-03-02] MEDS ORDERED: magnesium 4gm in 100ml NS 100 ML IV PRN (00:25)
[2020-03-02] MEDS ORDERED: magnesium 2GM in 50ml NS 50 ML IV PRN (00:25)
[2020-03-02] MEDS ORDERED: potassium Cl 20 mEq SR tablet PO PRN ×2 (00:25)
[2020-03-02] MEDS ORDERED: acetaminophen 325mg tablet PO PRN (00:25)
[2020-03-02] MEDS ORDERED: NYST1POW5 (00:28)
[2020-03-02] MEDS ORDERED: MYCOL15O TOP (00:28)
--- NOTE | 2020-03-02 01:30 | NUR ---
PROVIDED PT WITH SANDWICH AND MILK PER PT REQUEST. PT ATE WITHOUT ISSUE AND IS NOW LAYING BACK DOWN IN BED
[2020-03-02] MEDS: ipratropium/albuterol 3ml nebule NEB SCH ×3 (03:24→11:21)
--- NOTE | 2020-03-02 06:33 | NUR ---
Patient in room ED 5. I have received report from LENARD Dockery and had the opportunity to ask questions and assume patient care.
[2020-03-02 07:00] VITALS: BP 120/43
[2020-03-02] MEDS ORDERED: levoTHYROXINE 25mcg tablet PO SCH (07:00)
--- NOTE | 2020-03-02 07:00 | NUR ---
Pt arrived to unit via gurney by LENARD Briceño. Oriented pt to call light and room. VS, 2 RN skin check, physical assessment assessed
[2020-03-02] MEDS ORDERED: pantoprazole 40mg Tablet.DR PO SCH (07:30)
[2020-03-02] MEDS ORDERED: docusate sod 100mg capsule PO SCH (08:00)
[2020-03-02] MEDS ORDERED: non-formulary drug (Flecainide Acetate 1 TAB) PO SCH (08:00)
[2020-03-02] MEDS ORDERED: gabapentin 100mg capsule PO SCH (08:00)
[2020-03-02] MEDS ORDERED: divalproex 250mg tablet, delayed-release PO SCH (08:00)
[2020-03-02] MEDS ORDERED: flecainide 50mg tablet PO SCH (08:00)
[2020-03-02] MEDS ORDERED: apixaban 2.5mg tablet PO SCH (08:00)
[2020-03-02] MEDS ORDERED: ROPINIROLE HCL 3 MG PO SCH (08:00)
[2020-03-02] MEDS ORDERED: TRIAMCINOLONE TP SCH (08:00)
[2020-03-02] MEDS ORDERED: atorvastatin 20mg tablet PO SCH (08:00)
[2020-03-02] MEDS ORDERED: non-formulary drug (Atorvastatin Calcium 1 TAB) PO SCH (08:00)
[2020-03-02] MEDS ORDERED: non-formulary drug (Levothyroxine Sodium 1 TAB) PO SCH (08:00)
[2020-03-02] MEDS ORDERED: furosemide 40mg tablet PO SCH (08:00)
[2020-03-02] MEDS ORDERED: K and/or MAG REPLACEMENT MC SCH (08:00)
[2020-03-02] MEDS ORDERED: DIVALPROEX PO SCH (08:00)
[2020-03-02] MEDS ORDERED: methylPREDNISolone sod succ/PF 40mg inj. IV SCH (08:00)
[2020-03-02] MEDS ORDERED: HYDROcodone/acetaminophen 10/325mg tab PO SCH (08:00)
[2020-03-02] MEDS ORDERED: NYSTATIN TP SCH (08:00)
[2020-03-02] MEDS: ROPINIRole 1mg tablet PO SCH ×2 (08:13→12:05)
[2020-03-02 11:00] VITALS: BP 121/45
--- NOTE | 2020-03-02 11:06 | NUR ---
PAGER ID: [phone] MESSAGE: [id number]: Ginny Lofton: May I place pt on CC diet? -kan [phone]
--- NOTE | 2020-03-02 11:42 | NUR ---
New orders to place pt of hypo/hyperglycemia protocol and on a CC diet
[2020-03-02] MEDS ORDERED: glucagon, human recombinant 1mg kit SUBCUT PRN (11:45)
[2020-03-02] MEDS ORDERED: insulin Lispro (HumaLOG) vial - multi-dose SQ SCH (11:45)
[2020-03-02] MEDS ORDERED: dextrose 50%-water 50ml dispensing syringe IV PRN ×2 (11:45)
[2020-03-02] MEDS ORDERED: dextrose ORAL solution 15 GM/59 ML bottle PO PRN ×2 (11:45)
[2020-03-02] MEDS ORDERED: MESSAGE TO PHARMACY PO ONE (11:45)
[2020-03-02] MEDS ORDERED: ondansetron 4mg rapidly disintigrating tab PO PRN (12:00)
--- NOTE | 2020-03-02 14:08 | NUR ---
Pt stable for discharge per MD orders. Provided discharge education and instructions. Answered any questions/concerns pt may have. New medication sent to preferred pharmacy at [facility]. Tele monitor removed. PIV removed, cannula intact. Sent pt with belongings and medications brought with her from home. Pt sent downstairs via wheelchair by PCT into friend's private vehicle.
[2020-03-02] MEDS ORDERED: montelukast 10mg tablet PO SCH (21:00)
[2020-03-02] MEDS ORDERED: baclofen 10mg tablet PO SCH (21:00)
[2020-03-02] MEDS ORDERED: insulin glargine (Lantus) pen - multi-dose SQ SCH (21:00)
[2020-03-02] MEDS ORDERED: amitriptyline 50mg tablet PO SCH (21:00)
== END 2020-03-02 14:22 | disposition home health service (06) ==
LOC: ER 22:28 → UNDOADMIN 03-02 00:25 → INTOOBSV 03-02 00:25 → ED HOLD 03-02 00:25 → PCU 3S 03-02 00:26 → ED HOLD 03-02 00:26 → UNDODISIN 03-02 14:22
PROVIDERS: ADMIT Internal Medicine; ATTEND Family Medicine
DX: R07.89 Other chest pain (principal); J44.1 Chronic obstructive pulmonary disease with (acute) exacerbation; J96.20 Acute and chronic respiratory failure, unspecified whether with hypoxia or hypercapnia; I11.0 Hypertensive heart disease with heart failure; I50.32 Chronic diastolic (congestive) heart failure; E03.9 Hypothyroidism, unspecified; E78.5 Hyperlipidemia, unspecified; G25.81 Restless legs syndrome; G89.29 Other chronic pain; M54.9 Dorsalgia, unspecified; I48.91 Unspecified atrial fibrillation; F20.9 Schizophrenia, unspecified; F31.9 Bipolar disorder, unspecified; G20 Parkinson's disease; E11.9 Type 2 diabetes mellitus without complications; G47.30 Sleep apnea, unspecified; F17.210 Nicotine dependence, cigarettes, uncomplicated; Z86.73 Personal history of transient ischemic attack (TIA), and cerebral infarction without residual deficits; Z99.81 Dependence on supplemental oxygen; Z95.0 Presence of cardiac pacemaker; Z90.49 Acquired absence of other specified parts of digestive tract; Z90.710 Acquired absence of both cervix and uterus; Z96.653 Presence of artificial knee joint, bilateral; Z79.4 Long term (current) use of insulin; Z79.01 Long term (current) use of anticoagulants; Z79.899 Other long term (current) drug therapy; Z88.1 Allergy status to other antibiotic agents; Z88.8 Allergy status to other drugs, medicaments and biological substances; Z91.018 Allergy to other foods
CPT/HCPCS: 36415; 71045; 76937; 80053; 80164; 82948; 83880; 84484; 85025; 93005; 94640; 94760; 96374; 99285; G0378; J1815; J2920; J7999

== ENCOUNTER 2020-03-16 02:55 | Emergency (ER) | payer MEDICARE, MEDICAID ==
[~2020-03-16 02:55] MED LIST changes: +AMIT-189 PO; +APIX2.5T PO; +BACL10TA2 PO; +GABA-530 PO; +HYDR-3972 PO; +MONT10TA21 PO; +MYCOL15O TOP; +NYST1POW5; +PRED20TA PO
[2020-03-16] MEDS ORDERED: HYDROcodone/acetaminophen 10/325mg tab PO ONE (03:05)
[2020-03-16] MEDS ORDERED: acetaminophen 325mg tablet PO ONE (03:05)
[2020-03-16 03:25] LABS: BASOPHILS % (AUTO) 0.9 % (0-1); EOSINOPHILS # (AUTO) 0.2 X10'3 (0-0.9); EOSINOPHILS % (AUTO) 4.5 % (0-6); HEMATOCRIT 36.8 % (35.0-45.0); HEMOGLOBIN 11.6 g/dl (12.0-16.0); LYMPHOCYTES % (AUTO) 24.8 % (21-51); MEAN CORPUSCULAR HEMOGLOBIN 26.2 PG (27.0-31.0); MEAN CORPUSCULAR HGB CONC 31.4 g/dL (33.0-36.5); MEAN CORPUSCULAR VOLUME 83.4 FL (78-98); MEAN PLATELET VOLUME 8.1 FL (7.4-10.4); MONOCYTES # (AUTO) 0.5 X10'3 (0-0.9); NEUTROPHILS # (AUTO) 2.4 X10'3 (1.8-7.7); NEUTROPHILS % (AUTO) 58.8 % (42-75); PLATELET COUNT 140 X10'3 (140-440); RED BLOOD COUNT 4.41 X10'6 (4.20-5.60); RED CELL DISTRIBUTION WIDTH 19.9 % (11.5-14.5); WHITE BLOOD COUNT 4.1 X10'3 (4.5-11.0)
[2020-03-16 03:34] LABS: ALANINE AMINOTRANSFERASE 99 U/L (12-78); ALBUMIN 2.3 G/DL (3.4-5.0); ALBUMIN/GLOBULIN RATIO 0.6 (1.1-1.5); ALKALINE PHOSPHATASE 167 IU/L (46-116); ANION GAP -2 (8-16); ASPARTATE AMINO TRANSFERASE 42 U/L (10-37); BILIRUBIN,TOTAL 0.3 MG/DL (0.1-1.0); BLOOD UREA NITROGEN 15 MG/DL (7-18); BUN/CREATININE RATIO 17.6 (6.6-38.0); CHLORIDE 97 MMOL/L (99-107); CREATININE 0.85 MG/DL (0.40-0.90); GLUCOSE 225 MG/DL (70-104); MAGNESIUM 1.7 MG/DL (1.5-2.4); POTASSIUM 4.2 MMOL/L (3.5-5.1); SODIUM 138 MMOL/L (135-145); TOTAL PROTEIN 6.3 G/DL (6.4-8.2); eGFR 67 ML/MIN
[2020-03-16 03:45] LABS: TOTAL CARBON DIOXIDE 42.8 MMOL/L (24-32)
[2020-03-16 04:32] VITALS: BP 119/38
--- NOTE | 2020-03-16 05:56 | NUR ---
PROVIDED PATIENT FOOD AND WATER WHILE PATIENT WAITS FOR [facility] WORKER TO GET PATIENT FROM ED
== END 2020-03-16 07:27 | disposition home or self-care (01) ==
LOC: ER 02:55
DX: M54.5 Low back pain (principal); G20 Parkinson's disease; I48.91 Unspecified atrial fibrillation; I50.9 Heart failure, unspecified; I11.0 Hypertensive heart disease with heart failure; J44.9 Chronic obstructive pulmonary disease, unspecified; G47.30 Sleep apnea, unspecified; E11.9 Type 2 diabetes mellitus without complications; G89.29 Other chronic pain; F31.9 Bipolar disorder, unspecified; F41.9 Anxiety disorder, unspecified; F20.9 Schizophrenia, unspecified; Z86.73 Personal history of transient ischemic attack (TIA), and cerebral infarction without residual deficits; Z90.49 Acquired absence of other specified parts of digestive tract; Z90.710 Acquired absence of both cervix and uterus; Z98.890 Other specified postprocedural states; Z60.2 Problems related to living alone; Z56.0 Unemployment, unspecified; Z79.2 Long term (current) use of antibiotics; Z88.8 Allergy status to other drugs, medicaments and biological substances; Z79.01 Long term (current) use of anticoagulants; Z79.899 Other long term (current) drug therapy
CPT/HCPCS: 36415; 70450; 71045; 71250; 72192; 73560; 80053; 83735; 83880; 84484; 85025; 93005; 99285

== ENCOUNTER 2020-03-23 20:58 | Emergency (ER) | payer MEDICARE, MEDICAID ==
[~2020-03-23] VITALS: Ht 157.5 cm; Wt 117.3 kg
[~2020-03-23 20:58] MED LIST changes: -CEPH500C5 PO
[2020-03-23 22:02] LABS: BASOPHILS % (AUTO) 0.5 % (0-1); EOSINOPHILS # (AUTO) 0.2 X10'3 (0-0.9); EOSINOPHILS % (AUTO) 6.8 % (0-6); HEMATOCRIT 34.3 % (35.0-45.0); HEMOGLOBIN 10.6 g/dl (12.0-16.0); LYMPHOCYTES % (AUTO) 27.2 % (21-51); MEAN CORPUSCULAR HEMOGLOBIN 26.2 PG (27.0-31.0); MEAN CORPUSCULAR HGB CONC 30.8 g/dL (33.0-36.5); MEAN CORPUSCULAR VOLUME 85.1 FL (78-98); MEAN PLATELET VOLUME 7.9 FL (7.4-10.4); MONOCYTES # (AUTO) 0.5 X10'3 (0-0.9); NEUTROPHILS # (AUTO) 1.9 X10'3 (1.8-7.7); NEUTROPHILS % (AUTO) 51.5 % (42-75); PLATELET COUNT 185 X10'3 (140-440); RED BLOOD COUNT 4.03 X10'6 (4.20-5.60); WHITE BLOOD COUNT 3.6 X10'3 (4.5-11.0)
[2020-03-23 22:12] LABS: PARTIAL THROMBOPLASTIN TIME 24 SECONDS (22-32)
[2020-03-23 22:15] LABS: ALANINE AMINOTRANSFERASE 38 U/L (12-78); ALBUMIN 2.3 G/DL (3.4-5.0); ALBUMIN/GLOBULIN RATIO 0.6 (1.1-1.5); ALKALINE PHOSPHATASE 185 IU/L (46-116); ANION GAP -2 (8-16); ASPARTATE AMINO TRANSFERASE 30 U/L (10-37); BILIRUBIN,TOTAL 0.2 MG/DL (0.1-1.0); BLOOD UREA NITROGEN 11 MG/DL (7-18); BUN/CREATININE RATIO 10.7 (6.6-38.0); CALCIUM 9.1 MG/DL (8.5-10.1); CHLORIDE 101 MMOL/L (99-107); CREATININE 1.03 MG/DL (0.40-0.90); GLUCOSE 183 MG/DL (70-104); POTASSIUM 4.1 MMOL/L (3.5-5.1); SODIUM 138 MMOL/L (135-145); TOTAL PROTEIN 6.2 G/DL (6.4-8.2); eGFR 53 ML/MIN
[2020-03-23] MEDS ORDERED: methylPREDNISolone sod succ 125mg/2ml vial IV ONE (22:20)
[2020-03-23] MEDS ORDERED: ketorolac trometh. 30mg/ml inj. IV ONE (23:15)
[2020-03-23 23:19] LABS: CLARITY,URINE CLEAR (Clear); COLOR,URINE YELLOW (Yellow); GLUCOSE, URINE NEGATIVE (Neg); KETONES,URINE TRACE mg/dl (Neg); LEUKOCYTE ESTERASE ,URINE NEGATIVE (Neg); NITRITES, URINE NEGATIVE (Neg); OCCULT BLOOD,URINE NEGATIVE (Neg); PROTEIN,URINE TRACE mg/dl (Neg)
[2020-03-23 23:21] LABS: UA COLLECTION TYPE CLN CATCH MIDSTREAM
[2020-03-23 23:25] LABS: RBC,URINE 0-2 /HPF (0-2)
[2020-03-23 23:26] LABS: BACTERIA,URINE 1+ /HPF (Neg); SQUAMOUS EPITHELIAL CELL,UR MODERATE /LPF (FEW)
[2020-03-23 23:27] LABS: YEAST FEW /HPF (NEGATIVE)
[2020-03-23] MEDS ORDERED: PRED20TA PO (23:27)
[2020-03-23] MEDS ORDERED: CEPH500C5 PO (23:32)
[2020-03-24 01:24] VITALS: BP 113/45
== END 2020-03-24 01:48 | disposition home or self-care (01) ==
LOC: ER 20:58
DX: M25.562 Pain in left knee (principal); M25.561 Pain in right knee; G89.29 Other chronic pain; R06.02 Shortness of breath; N39.0 Urinary tract infection, site not specified; L03.119 Cellulitis of unspecified part of limb; R05 Cough; I48.91 Unspecified atrial fibrillation; I11.0 Hypertensive heart disease with heart failure; I50.9 Heart failure, unspecified; J43.9 Emphysema, unspecified; E11.9 Type 2 diabetes mellitus without complications; F41.9 Anxiety disorder, unspecified; F31.9 Bipolar disorder, unspecified; F20.9 Schizophrenia, unspecified; Z87.442 Personal history of urinary calculi; Z86.73 Personal history of transient ischemic attack (TIA), and cerebral infarction without residual deficits; Z86.69 Personal history of other diseases of the nervous system and sense organs; Z90.89 Acquired absence of other organs; Z90.49 Acquired absence of other specified parts of digestive tract; Z90.710 Acquired absence of both cervix and uterus; Z95.0 Presence of cardiac pacemaker; Z98.890 Other specified postprocedural states; Z60.2 Problems related to living alone; Z56.0 Unemployment, unspecified; Z88.1 Allergy status to other antibiotic agents; Z88.8 Allergy status to other drugs, medicaments and biological substances; Z91.018 Allergy to other foods; Z79.2 Long term (current) use of antibiotics; Z79.899 Other long term (current) drug therapy
CPT/HCPCS: 71045; 80053; 81001; 82948; 83605; 83880; 84145; 84484; 85025; 85610; 85730; 87088; 93005; 96374; 96375; 99285; J1885; J2930

== ENCOUNTER 2020-04-16 18:46 | Emergency (ER) | payer MEDICARE, MEDICAID ==
[~2020-04-16] VITALS: Ht 157.5 cm; Wt 115.0 kg
[~2020-04-16 18:46] MED LIST changes: +CEPH500C5 PO
[2020-04-16] MEDS ORDERED: methylPREDNISolone sod succ 125mg/2ml vial IV ONE (18:55)
[2020-04-16 19:16] LABS: ABG BASE EXCESS 8.6 mmol/L (-2.0-2.0); ABG HCO3 36.5 mmol/L (22.0-26.0); ABG OXYGEN SATURATION 94.8 % (94-97); ABG PCO2 (T) 71.5 mmHg (32.0-45.0); ABG PO2 (T) 82.3 mmHg (75.0-100.0); ALLEN'S TEST POSITIVE; FCOHb 3.8 % (0.0-3.9); FLOW 3 L/min; FMetHb 0.3 % (0.0-1.5); FO2Hb 90.9 % (94-97); PATIENT TEMPERATURE 37.1; TOTAL HEMOGLOBIN 10.6 G/dl (12.0-16.0)
[2020-04-16 19:40] LABS: BASOPHILS % (AUTO) 0.4 % (0-1); EOSINOPHILS # (AUTO) 0.1 X10'3 (0-0.9); EOSINOPHILS % (AUTO) 2.9 % (0-6); HEMOGLOBIN 9.6 g/dl (12.0-16.0); LYMPHOCYTES # (AUTO) 1.2 X10'3 (1.1-4.8); LYMPHOCYTES % (AUTO) 26.4 % (21-51); MEAN CORPUSCULAR HEMOGLOBIN 25.6 PG (27.0-31.0); MEAN CORPUSCULAR HGB CONC 31.1 g/dL (33.0-36.5); MEAN CORPUSCULAR VOLUME 82.5 FL (78-98); MONOCYTES # (AUTO) 0.5 X10'3 (0-0.9); NEUTROPHILS # (AUTO) 2.7 X10'3 (1.8-7.7); NEUTROPHILS % (AUTO) 59.3 % (42-75); PLATELET COUNT 133 X10'3 (140-440); RED BLOOD COUNT 3.75 X10'6 (4.20-5.60); RED CELL DISTRIBUTION WIDTH 19.6 % (11.5-14.5); WHITE BLOOD COUNT 4.5 X10'3 (4.5-11.0)
[2020-04-16 19:52] LABS: ALANINE AMINOTRANSFERASE 19 U/L (12-78); ALBUMIN 2.5 G/DL (3.4-5.0); ALBUMIN/GLOBULIN RATIO 0.8 (1.1-1.5); ALKALINE PHOSPHATASE 74 IU/L (46-116); ASPARTATE AMINO TRANSFERASE 11 U/L (10-37); BILIRUBIN,TOTAL 0.2 MG/DL (0.1-1.0); BLOOD UREA NITROGEN 18 MG/DL (7-18); BUN/CREATININE RATIO 20.2 (6.6-38.0); CALCIUM 9.6 MG/DL (8.5-10.1); CHLORIDE 104 MMOL/L (99-107); CREATININE 0.89 MG/DL (0.40-0.90); GLUCOSE 172 MG/DL (70-104); POTASSIUM 4.7 MMOL/L (3.5-5.1); TOTAL PROTEIN 5.8 G/DL (6.4-8.2); eGFR 63 ML/MIN
[2020-04-16 20:01] LABS: TOTAL CARBON DIOXIDE 36.7 MMOL/L (24-32)
[2020-04-16 20:05] LABS: ANION GAP 1 (8-16); SODIUM 142 MMOL/L (135-145)
[2020-04-16 20:16] LABS: ANISOCYTOSIS 2+; PLATELET ESTIMATE DECREASED; POLYCHROMASIA FEW
[2020-04-16 20:17] LABS: STOMATOCYTES FEW
--- NOTE | 2020-04-16 20:45 | NUR ---
Consulted with Micheline Genao about pt Spo2 at 90% on 5 L NC.
--- NOTE | 2020-04-16 20:48 | NUR ---
Micheline ESPAÑA states pt is at baseline for her condition of COPD. States no need for Bipap
--- NOTE | 2020-04-16 23:37 | NUR ---
Pt states she needs her caregiver to give her a ride home. Called caregiver Hilary at [phone] and left a message.
--- NOTE | 2020-04-17 00:01 | NUR ---
CALLED [facility] AT 00:01 LEFT A MESSAGE FOR TRANSPORT HOME
--- NOTE | 2020-04-17 00:08 | NUR ---
[facility] DENIED TRANSPORT TO THERE REGULAR CLIENT BECAUSE ITS NOT A CONTRACTED FACILITY. WILL HAVE TO ATTEMPT [facility]
[2020-04-17 01:01] VITALS: BP 136/45
== END 2020-04-17 01:06 | disposition home or self-care (01) ==
LOC: ER 18:47
DX: R07.89 Other chest pain (principal); Z20.828 Contact with and (suspected) exposure to other viral communicable diseases; I48.91 Unspecified atrial fibrillation; I11.0 Hypertensive heart disease with heart failure; I50.9 Heart failure, unspecified; J44.9 Chronic obstructive pulmonary disease, unspecified; E11.9 Type 2 diabetes mellitus without complications; G89.29 Other chronic pain; Z87.442 Personal history of urinary calculi; Z86.73 Personal history of transient ischemic attack (TIA), and cerebral infarction without residual deficits; Z56.0 Unemployment, unspecified; Z90.49 Acquired absence of other specified parts of digestive tract; Z90.710 Acquired absence of both cervix and uterus; Z95.0 Presence of cardiac pacemaker; Z98.890 Other specified postprocedural states; Z88.8 Allergy status to other drugs, medicaments and biological substances; Z91.013 Allergy to seafood; Z88.1 Allergy status to other antibiotic agents; Z79.899 Other long term (current) drug therapy
CPT/HCPCS: 36415; 36600; 71045; 80053; 82803; 83605; 83880; 84484; 85008; 85018; 85025; 87040; 87635; 93005; 96374; 99285; C9803; J2930

== ENCOUNTER 2020-05-09 20:55 | Emergency (ER) | payer MEDICARE, MEDICAID ==
[~2020-05-09] VITALS: Ht 309.9 cm; Wt 118.0 kg
[~2020-05-09 20:55] MED LIST changes: -NYST1POW5; +NYST1POW5 TOP
--- NOTE | 2020-05-09 21:30 | NUR ---
Pt. arrived via EMS. Juan WEINBERG doing triage assessment. Pt. is resting in bed, no apparent distress. Will continue to monitor pt.
[2020-05-09 22:03] LABS: LYMPHOCYTES # (AUTO) 0.6 X10'3 (1.1-4.8); NEUTROPHILS # (AUTO) 2.6 X10'3 (1.8-7.7)
[2020-05-09 22:05] LABS: BASOPHILS % (AUTO) 0.4 % (0-1); EOSINOPHILS % (AUTO) 0.6 % (0-6); HEMATOCRIT 32.6 % (35.0-45.0); LYMPHOCYTES % (AUTO) 18.5 % (21-51); MEAN CORPUSCULAR HEMOGLOBIN 24.6 PG (27.0-31.0); MEAN CORPUSCULAR HGB CONC 30.7 g/dL (33.0-36.5); MONOCYTES # (AUTO) 0.1 X10'3 (0-0.9); MONOCYTES % (AUTO) 3.7 % (2-12); NEUTROPHILS % (AUTO) 76.8 % (42-75); PLATELET COUNT 172 X10'3 (140-440); RED BLOOD COUNT 4.07 X10'6 (4.20-5.60); RED CELL DISTRIBUTION WIDTH 19.5 % (11.5-14.5); WHITE BLOOD COUNT 3.4 X10'3 (4.5-11.0)
[2020-05-09 22:13] LABS: ALANINE AMINOTRANSFERASE 19 U/L (12-78); ALBUMIN 2.8 G/DL (3.4-5.0); ALBUMIN/GLOBULIN RATIO 0.8 (1.1-1.5); ALKALINE PHOSPHATASE 73 IU/L (46-116); ANION GAP 3 (8-16); ASPARTATE AMINO TRANSFERASE 16 U/L (10-37); BILIRUBIN,TOTAL 0.3 MG/DL (0.1-1.0); BLOOD UREA NITROGEN 7 MG/DL (7-18); BUN/CREATININE RATIO 7.9 (6.6-38.0); CALCIUM 8.7 MG/DL (8.5-10.1); CHLORIDE 104 MMOL/L (99-107); CREATININE 0.89 MG/DL (0.40-0.90); ETHANOL < 0.010 GM/DL (0.0-0.010); GLUCOSE 150 MG/DL (70-104); POTASSIUM 4.6 MMOL/L (3.5-5.1); SODIUM 141 MMOL/L (135-145); TOTAL CARBON DIOXIDE 33.8 MMOL/L (24-32); TOTAL PROTEIN 6.4 G/DL (6.4-8.2); eGFR 63 ML/MIN
[2020-05-09 22:15] LABS: URINE AMPHETAMINE SCREEN NEGATIVE (Neg); URINE BARBITUATE SCREEN NEGATIVE (Neg); URINE BENZODIAZEPINES SCREEN NEGATIVE (Neg); URINE CANNABINOID SCREEN NEGATIVE (Neg); URINE COCAINE SCREEN NEGATIVE (Neg); URINE METHADONE SCREEN NEGATIVE (Neg); URINE OPIATE SCREEN POSITIVE (Neg); URINE PHENCYCLIDINE SCREEN NEGATIVE (Neg)
[2020-05-09] MEDS ORDERED: ipratropium/albuterol 3ml nebule NEB ONE (22:20)
--- NOTE | 2020-05-09 23:05 | NUR ---
Pt. up to the bathroom. Able to walk indepently. Pt. is in no apparent distress. Will continue to monitor.
--- NOTE | 2020-05-10 00:29 | NUR ---
Pt. resting in bed comfortably, in no appparent distress, will continue to monitor.
--- NOTE | 2020-05-10 02:17 | NUR ---
Pt. resting in bed with eyes closed. In no apparent distress.
[2020-05-10] MEDS ORDERED: glucagon, human recombinant 1mg kit SUBCUT PRN (04:15)
[2020-05-10] MEDS ORDERED: dextrose 50%-water 50ml dispensing syringe IV PRN ×2 (04:15)
[2020-05-10] MEDS ORDERED: insulin Lispro (HumaLOG) vial - multi-dose SQ SCH (04:15)
[2020-05-10] MEDS ORDERED: dextrose ORAL solution 15 GM/59 ML bottle PO PRN ×2 (04:15)
[2020-05-10] MEDS ORDERED: MESSAGE TO PHARMACY PO ONE (04:15)
--- NOTE | 2020-05-10 04:15 | NUR ---
Pt. is laying in bed, restless. Will continue to monitor.
[2020-05-10 04:43] LABS: HEMOGLOBIN A1C 7.8 % (4.5-6.2)
[2020-05-10 05:37] VITALS: BP 110/55
--- NOTE | 2020-05-10 05:42 | NUR ---
PT PACKET FAXED TO [facility]
--- NOTE | 2020-05-10 05:43 | NUR ---
Pt. awake sitting up at the side of the bed.
[2020-05-10] MEDS ORDERED: levoTHYROXINE 25mcg tablet PO SCH (07:00)
--- NOTE | 2020-05-10 07:07 | NUR ---
Patient sleeping supine. No distress observed. Continue to monitor.
[2020-05-10] MEDS ORDERED: apixaban 2.5mg tablet PO SCH (08:00)
[2020-05-10] MEDS ORDERED: gabapentin 100mg capsule PO SCH (08:00)
[2020-05-10] MEDS ORDERED: NYSTATIN TP SCH (08:00)
[2020-05-10] MEDS ORDERED: divalproex sod 250mg ER (24-hour) tablet PO SCH (08:00)
[2020-05-10] MEDS ORDERED: atorvastatin 20mg tablet PO SCH (08:00)
[2020-05-10] MEDS ORDERED: furosemide 40mg tablet PO SCH (08:00)
[2020-05-10] MEDS ORDERED: HYDROcodone/acetaminophen 10/325mg tab PO SCH (08:00)
[2020-05-10] MEDS ORDERED: TRIAMCINOLONE TP SCH (08:00)
[2020-05-10] MEDS ORDERED: flecainide 50mg tablet PO SCH (08:00)
[2020-05-10] MEDS ORDERED: ROPINIRole 1mg tablet PO SCH (08:00)
--- NOTE | 2020-05-10 08:00 | NUR ---
Patient eating breakfast. Morning BG 103. No distress observed. Continue to monitor.
[2020-05-10] MEDS ORDERED: BUDE10.22 INH (09:10)
--- NOTE | 2020-05-10 09:17 | NUR ---
Lencho BOOTH, evaluating patient. Continue to monitor.
--- NOTE | 2020-05-10 10:22 | NUR ---
Patient states she is no longer suicidal. Patient states he caregiver who had sick children was unable to come to help her for 1 week. Patient states she is back today and now she has someone to talk to. Patient wants to go home. Patient's acute care registered nurse is over with her for 6 hours a day. Continue to monitor.
[2020-05-10] MEDS ORDERED: amitriptyline 50mg tablet PO SCH (21:00)
[2020-05-10] MEDS ORDERED: montelukast 10mg tablet PO SCH (21:00)
[2020-05-10] MEDS ORDERED: baclofen 10mg tablet PO SCH (21:00)
== END 2020-05-10 11:13 | disposition home or self-care (01) ==
LOC: ER 20:56
DX: F32.9 Major depressive disorder, single episode, unspecified (principal); R45.851 Suicidal ideations; J44.1 Chronic obstructive pulmonary disease with (acute) exacerbation; Z56.0 Unemployment, unspecified; Z60.9 Problem related to social environment, unspecified; G20 Parkinson's disease; I48.91 Unspecified atrial fibrillation; I11.0 Hypertensive heart disease with heart failure; I50.9 Heart failure, unspecified; E11.9 Type 2 diabetes mellitus without complications; G47.30 Sleep apnea, unspecified; F41.9 Anxiety disorder, unspecified; F20.9 Schizophrenia, unspecified; G89.29 Other chronic pain; Z86.73 Personal history of transient ischemic attack (TIA), and cerebral infarction without residual deficits; Z86.69 Personal history of other diseases of the nervous system and sense organs; Z90.49 Acquired absence of other specified parts of digestive tract; Z90.89 Acquired absence of other organs; Z98.890 Other specified postprocedural states; Z95.0 Presence of cardiac pacemaker; Z90.721 Acquired absence of ovaries, unilateral; Z91.018 Allergy to other foods; Z88.1 Allergy status to other antibiotic agents; Z88.8 Allergy status to other drugs, medicaments and biological substances; Z79.899 Other long term (current) drug therapy
CPT/HCPCS: 36415; 80053; 80305; 80320; 82948; 83036; 85025; 94640; 94760; 99284; 99285; J1815

== ENCOUNTER 2020-06-25 19:37 | Emergency (ER) | payer MEDICAID, MEDICARE ==
[~2020-06-25] VITALS: Ht 167.6 cm; Wt 109.1 kg
[~2020-06-25 19:37] MED LIST changes: +BUDE10.22 INH; -CEPH500C5 PO; +INSU100I31 SQ; -MYCOL15O TOP; -NOVLG; +NOVLG SQ
[2020-06-25 20:20] LABS: BASOPHILS % (AUTO) 0.5 % (0-1); EOSINOPHILS # (AUTO) 0.1 X10'3 (0-0.9); EOSINOPHILS % (AUTO) 1.3 % (0-6); HEMATOCRIT 35.7 % (35.0-45.0); LYMPHOCYTES # (AUTO) 2.3 X10'3 (1.1-4.8); LYMPHOCYTES % (AUTO) 37.8 % (21-51); MEAN PLATELET VOLUME 8.7 FL (7.4-10.4); MONOCYTES # (AUTO) 0.6 X10'3 (0-0.9); MONOCYTES % (AUTO) 9.8 % (2-12); NEUTROPHILS # (AUTO) 3.1 X10'3 (1.8-7.7); NEUTROPHILS % (AUTO) 50.6 % (42-75); PLATELET COUNT 182 X10'3 (140-440); RED CELL DISTRIBUTION WIDTH 20.8 % (11.5-14.5); WHITE BLOOD COUNT 6.2 X10'3 (4.5-11.0)
[2020-06-25 20:37] LABS: ALANINE AMINOTRANSFERASE 27 U/L (12-78); ALBUMIN 2.9 G/DL (3.4-5.0); ALBUMIN/GLOBULIN RATIO 0.9 (1.1-1.5); ALKALINE PHOSPHATASE 58 IU/L (46-116); ANION GAP 1 (8-16); ASPARTATE AMINO TRANSFERASE 16 U/L (10-37); BILIRUBIN,TOTAL 0.3 MG/DL (0.1-1.0); BLOOD UREA NITROGEN 23 MG/DL (7-18); BUN/CREATININE RATIO 21.3 (6.6-38.0); CALCIUM 8.7 MG/DL (8.5-10.1); CHLORIDE 101 MMOL/L (99-107); CREATININE 1.08 MG/DL (0.40-0.90); GLUCOSE 59 MG/DL (70-104); SODIUM 146 MMOL/L (135-145); TOTAL PROTEIN 6.1 G/DL (6.4-8.2); eGFR 50 ML/MIN
[2020-06-25 20:43] LABS: TOTAL CARBON DIOXIDE 44.4 MMOL/L (24-32)
[2020-06-25 20:47] LABS: RED BLOOD COUNT 4.75 X10'6 (4.20-5.60)
[2020-06-25 20:48] LABS: MEAN CORPUSCULAR HEMOGLOBIN 23.1 PG (27.0-31.0); MEAN CORPUSCULAR HGB CONC 30.7 g/dL (33.0-36.5)
[2020-06-25] MEDS ORDERED: potassium Cl 20 mEq SR tablet PO ONE (21:10)
[2020-06-25 21:30] LABS: PLATELET ESTIMATE NORMAL
[2020-06-25 21:31] LABS: ANISOCYTOSIS 3+; ELLIPTOCYTES FEW; MICROCYTOSIS 1+; POLYCHROMASIA FEW; TEAR DROP CELLS FEW
--- NOTE | 2020-06-25 21:57 | NUR ---
Pt.'s friend who can meet pt. with electric wheel chair at home [phone] Addendum: 06/25/20 at 2201 by TALA Name is Hilary
[2020-06-26 00:09] VITALS: BP 134/51
[2020-06-26 10:48] LABS: ABG BASE EXCESS 15.7 mmol/L (-2.0-2.0); ABG HCO3 42.5 mmol/L (22.0-26.0); ABG OXYGEN SATURATION 87.6 % (94-97); ABG PCO2 (T) 64.2 mmHg (32.0-45.0); ABG PO2 (T) 52.7 mmHg (75.0-100.0); ALLEN'S TEST POSITIVE; FMetHb 0.2 % (0.0-1.5); FO2Hb 79.5 % (94-97); TOTAL HEMOGLOBIN 11.4 G/dl (12.0-16.0)
== END 2020-06-25 22:47 | disposition home or self-care (01) ==
LOC: ER 19:37
DX: R41.0 Disorientation, unspecified (principal); M54.5 Low back pain; J96.11 Chronic respiratory failure with hypoxia; J96.12 Chronic respiratory failure with hypercapnia; G20 Parkinson's disease; R29.6 Repeated falls; I48.91 Unspecified atrial fibrillation; I11.0 Hypertensive heart disease with heart failure; I50.9 Heart failure, unspecified; J43.9 Emphysema, unspecified; G47.30 Sleep apnea, unspecified; E11.9 Type 2 diabetes mellitus without complications; G89.29 Other chronic pain; Z86.73 Personal history of transient ischemic attack (TIA), and cerebral infarction without residual deficits; Z86.61 Personal history of infections of the central nervous system; Z79.01 Long term (current) use of anticoagulants; Z87.442 Personal history of urinary calculi; Z87.81 Personal history of (healed) traumatic fracture; Z90.49 Acquired absence of other specified parts of digestive tract; Z90.710 Acquired absence of both cervix and uterus; Z95.0 Presence of cardiac pacemaker; Z90.721 Acquired absence of ovaries, unilateral; Z56.0 Unemployment, unspecified; Z88.2 Allergy status to sulfonamides; Z91.018 Allergy to other foods; Z88.8 Allergy status to other drugs, medicaments and biological substances; Z79.4 Long term (current) use of insulin; Z79.899 Other long term (current) drug therapy; Z72.0 Tobacco use
CPT/HCPCS: 36415; 36600; 70450; 71045; 72131; 80053; 82803; 83880; 84484; 85008; 85018; 85025; 93005; 99285

== ENCOUNTER 2020-07-01 18:15 | Emergency (ER) | payer MEDICARE, MEDICAID ==
[2020-07-01 20:13] LABS: BASOPHILS % (AUTO) 0.3 % (0-1); EOSINOPHILS # (AUTO) 0.1 X10'3 (0-0.9); EOSINOPHILS % (AUTO) 1.6 % (0-6); LYMPHOCYTES % (AUTO) 21.2 % (21-51); MEAN PLATELET VOLUME 8.2 FL (7.4-10.4); MONOCYTES # (AUTO) 0.5 X10'3 (0-0.9); MONOCYTES % (AUTO) 10.1 % (2-12); NEUTROPHILS # (AUTO) 3.2 X10'3 (1.8-7.7); NEUTROPHILS % (AUTO) 66.8 % (42-75); PLATELET COUNT 182 X10'3 (140-440); WHITE BLOOD COUNT 4.8 X10'3 (4.5-11.0)
[2020-07-01 20:33] LABS: ALANINE AMINOTRANSFERASE 21 U/L (12-78); ALBUMIN 2.8 G/DL (3.4-5.0); ALBUMIN/GLOBULIN RATIO 0.8 (1.1-1.5); ALKALINE PHOSPHATASE 57 IU/L (46-116); ANION GAP 5 (8-16); ASPARTATE AMINO TRANSFERASE 11 U/L (10-37); BILIRUBIN,TOTAL 0.4 MG/DL (0.1-1.0); BLOOD UREA NITROGEN 21 MG/DL (7-18); BUN/CREATININE RATIO 21.4 (6.6-38.0); CHLORIDE 97 MMOL/L (99-107); CREATININE 0.98 MG/DL (0.40-0.90); GLUCOSE 151 MG/DL (70-104); POTASSIUM 3.1 MMOL/L (3.5-5.1); SODIUM 143 MMOL/L (135-145); TOTAL PROTEIN 6.3 G/DL (6.4-8.2); eGFR 56 ML/MIN
[2020-07-01 20:39] LABS: HEMATOCRIT 35.8 % (35.0-45.0); HEMOGLOBIN 10.9 g/dl (12.0-16.0); MEAN CORPUSCULAR VOLUME 74.8 FL (78-98); RED BLOOD COUNT 4.79 X10'6 (4.20-5.60)
[2020-07-01 20:40] LABS: MEAN CORPUSCULAR HEMOGLOBIN 22.8 PG (27.0-31.0); MEAN CORPUSCULAR HGB CONC 30.4 g/dL (33.0-36.5); RED CELL DISTRIBUTION WIDTH 20.4 % (11.5-14.5)
[2020-07-01 20:44] LABS: TOTAL CARBON DIOXIDE 40.8 MMOL/L (24-32)
[2020-07-01 21:08] LABS: LARGE PLATELETS FEW; PLATELET ESTIMATE NORMAL
[2020-07-01 21:09] LABS: ANISOCYTOSIS 3+; MICROCYTOSIS 1+
[2020-07-01] MEDS: polyethylene glycol 3350 17gm powd pack PO SCH ×2 (21:50→23:23)
[2020-07-01] MEDS ORDERED: POLY17PO10 PO (21:51)
[2020-07-01 22:36] LABS: CLARITY,URINE CLOUDY (Clear); COLOR,URINE YELLOW (Yellow); GLUCOSE, URINE NEGATIVE (Neg); KETONES,URINE NEGATIVE (Neg); LEUKOCYTE ESTERASE ,URINE SMALL (Neg); NITRITES, URINE NEGATIVE (Neg); OCCULT BLOOD,URINE SMALL (Neg); PROTEIN,URINE NEGATIVE (Neg); UROBILINOGEN,URINE 0.2 E.U/dL (0.2-1.0)
[2020-07-01 22:37] LABS: UA COLLECTION TYPE CLN CATCH MIDSTREAM
[2020-07-01 22:59] LABS: WBC,URINE 20-30 /HPF (0-4)
[2020-07-01 23:00] LABS: BACTERIA,URINE 2+ /HPF (Neg); MUCUS STRANDS MANY /LPF (Neg); RBC,URINE 0-2 /HPF (0-2); SQUAMOUS EPITHELIAL CELL,UR MANY /LPF (FEW); YEAST MODERATE /HPF (NEGATIVE)
--- NOTE | 2020-07-01 23:00 | NUR ---
Unable to find transportation for patient home. [facility] refuse to transport stating they feel she is too much of a risk. chief minister called; no answer.
--- NOTE | 2020-07-02 01:10 | NUR ---
[facility] called to transport patient home. The are unable to transport until approx. 0800.
--- NOTE | 2020-07-02 02:48 | NUR ---
pt assisted to bedside commode.
--- NOTE | 2020-07-02 03:25 | NUR ---
Pt had large firm bowl movment in bedside commode.
[2020-07-02 08:58] VITALS: BP 128/62
== END 2020-07-02 09:00 | disposition home or self-care (01) ==
LOC: ER 18:15
DX: K59.00 Constipation, unspecified (principal); R14.0 Abdominal distension (gaseous); M54.89 Other dorsalgia; I48.91 Unspecified atrial fibrillation; I11.0 Hypertensive heart disease with heart failure; I50.9 Heart failure, unspecified; J43.9 Emphysema, unspecified; E11.9 Type 2 diabetes mellitus without complications; G89.29 Other chronic pain; F41.9 Anxiety disorder, unspecified; F31.9 Bipolar disorder, unspecified; F20.9 Schizophrenia, unspecified; F17.200 Nicotine dependence, unspecified, uncomplicated; Z86.73 Personal history of transient ischemic attack (TIA), and cerebral infarction without residual deficits; Z86.69 Personal history of other diseases of the nervous system and sense organs; Z87.442 Personal history of urinary calculi; Z90.89 Acquired absence of other organs; Z90.49 Acquired absence of other specified parts of digestive tract; Z90.710 Acquired absence of both cervix and uterus; Z95.0 Presence of cardiac pacemaker; Z98.890 Other specified postprocedural states; Z60.2 Problems related to living alone; Z56.0 Unemployment, unspecified; Z88.8 Allergy status to other drugs, medicaments and biological substances; Z88.1 Allergy status to other antibiotic agents; Z91.018 Allergy to other foods; Z79.4 Long term (current) use of insulin; Z79.899 Other long term (current) drug therapy
CPT/HCPCS: 36415; 74176; 80053; 81001; 85008; 85025; 99284